=== PATIENT | female | born 1950 ===

== ENCOUNTER 2017-09-23 00:42 | Day surgery (SDC) | payer OTHER ==
[~2017-09-23 00:42] MED LIST: ACYC800 PO; AMLO10 PO; ASPERCREME1 EACH TP; ATEN25 PO; ATOR10 PO; Amoxicillin500 MG PO; Antivert25 MG PO; Bactrim Ds Tab1 EACH PO; CALACE667G PO; CEPH500 PO; CIPR500 PO; CRESEMBA186 MG PO; Cleocin HCl300 MG PO; Colace100 MG PO; Cortisporin Ear10 M1 RIGHTEAR; ESTRADIOL/PROG/TEST PO; Estradiol1 MG PO; GABA300 PO; ISON300 PO; LEVFLO500 PO; LOSA50 PO; METF500 PO; METO25 PO; METR500 PO; Norco 5-325 Ta1 EACH PO; PANT40 PO; PRED1SU BOTHEYES; PROC5 PO; PROM25 PO; TRAM50 PO; VITAMIN D32000 UNIT PO; Zofran4 MG PO
[2017-09-23 10:06] LABS: BASOPHILS PERCENT AUTO 0 % (0-2); EOSINOPHILS PERCENT AUTO 0 % (0-6); Hematocrit 32.3 % (33.0-51.0); Hemoglobin 10.2 g/dL (11.5-16.0); IMMATURE GRAN ABSOLUTE AUTO 0.02 K/mm3 (0.00-0.10); IMMATURE GRAN PERCENT AUTO 1 % (0-1); LYMPHOCYTES PERCENT AUTO 50 % (21-46); MONOCYTES ABSOLUTE AUTO 0.49 K/mm3 (0.16-1.47); MONOCYTES PERCENT AUTO 22 % (4-13); Mean Corpuscular HGB 27.6 pg (26.0-34.0); Mean Corpuscular HGB Conc 31.6 g/dL (31.5-36.5); Mean Corpuscular Volume 87 fL (80-100); Mean Platelet Volume 8.8 fL (9.1-12.4); NEUTROPHILS PERCENT AUTO 27 % (41-73); Platelet Count 242 K/mm3 (150-400); RDW Coefficient Variation 18.4 % (11.7-14.2); RDW Standard Deviation 58.6 fL (35.1-46.3); White Blood Cell Count 2.21 K/mm3 (4.00-11.30)
[2017-09-23 10:31] LABS: Alanine Aminotransfer (ALT/SGP 19 U/L (12-78); Albumin, Blood 3.9 g/dL (3.4-5.0); Albumin/Globulin Ratio 0.9 (0.8-1.8); Alk Phos 60 U/L (50-136); Anion Gap 8 mmol/L (6-16); Aspartate Aminotrans (AST/SGOT 35 U/L (12-37); Bilirubin, Total 0.2 mg/dL (0.1-1.0); Blood Urea Nitrogen 25 mg/dL (8-24); Bun/Creatinine Ratio 27.7 (12.0-20.0); CO2, Blood 24 mmol/L (21-32); Calcium, Blood 9.3 mg/dL (8.5-10.1); Chloride, Blood 104 mmol/L (98-108); Globulin, Blood 4.4 g/dL (2.2-4.0); Glomerular Filtration Rate >60 (60-); Glucose, Blood 97 mg/dL (70-99); Magnesium, Blood 1.8 mg/dL (1.6-2.4); Phosphorus, Blood 4.5 mg/dL (2.5-4.9); Potassium, Blood 4.7 mmol/L (3.5-5.5); Sodium, Blood 136 mmol/L (136-145); Total Protein, Blood 8.3 g/dL (6.4-8.2)
[2018-08-20] MEDS ORDERED: TRAZ50 PO (01:13)
[2018-08-20] MEDS ORDERED: FOLGARD TABLET1 EACH PO (01:14)
[2018-08-20] MEDS ORDERED: SACC250C PO (01:15)
[2018-08-20] MEDS ORDERED: Bactrim Ds Tab1 EACH PO (01:15)
[2018-08-20] MEDS ORDERED: ACYCLOVIR SOD PO (01:16)
[2018-08-20] MEDS ORDERED: VORI200 PO (01:17)
[2018-08-20] MEDS ORDERED: ONDA4ODT (01:18)
[2018-08-20] MEDS ORDERED: GABA100 PO (01:18)
[2018-08-20] MEDS ORDERED: ACET325 PO (01:19)
[2018-08-20] MEDS ORDERED: ENOX40I SC (01:20)
[2018-08-20] MEDS ORDERED: CITA10S PO (01:25)
[2018-08-20] MEDS ORDERED: LOSA25 PO (01:25)
[2018-08-20] MEDS ORDERED: MELA3 PO (01:26)
[2018-08-20] MEDS ORDERED: METF500C PO (01:26)
[2018-08-20] MEDS ORDERED: Omeprazole20 M1 PO (01:27)
[2018-08-20] MEDS ORDERED: POTCHL10ER PO (01:28)
[2018-08-20] MEDS ORDERED: PRED10 PO (01:29)
[2018-08-22] MEDS ORDERED: Zovirax200 MG PO (16:45)
[2018-08-22] MEDS ORDERED: CEFP200 PO (16:56)
== END 2017-09-23 09:50 | disposition home or self-care (01) ==
LOC: ATC 00:42
PROVIDERS: Internal Medicine Hematology & Oncology
DX: C92.40 Acute promyelocytic leukemia, not having achieved remission (principal)
CPT/HCPCS: 36592; 80053; 83735; 84100; 85025

== ENCOUNTER 2017-09-27 00:28 | Day surgery (SDC) | payer OTHER ==
[2017-09-27 09:39] LABS: BASOPHILS PERCENT AUTO 0 % (0-2); EOSINOPHILS PERCENT AUTO 0 % (0-6); Hematocrit 32.3 % (33.0-51.0); Hemoglobin 10.5 g/dL (11.5-16.0); IMMATURE GRAN ABSOLUTE AUTO 0.02 K/mm3 (0.00-0.10); IMMATURE GRAN PERCENT AUTO 1 % (0-1); LYMPHOCYTES ABSOLUTE AUTO 0.84 K/mm3 (0.84-5.20); LYMPHOCYTES PERCENT AUTO 46 % (21-46); MONOCYTES ABSOLUTE AUTO 0.29 K/mm3 (0.16-1.47); MONOCYTES PERCENT AUTO 16 % (4-13); Mean Corpuscular HGB 28.1 pg (26.0-34.0); Mean Corpuscular HGB Conc 32.5 g/dL (31.5-36.5); Mean Corpuscular Volume 86 fL (80-100); NEUTROPHILS ABSOLUTE AUTO 0.66 K/mm3 (1.96-9.15); NEUTROPHILS PERCENT AUTO 37 % (41-73); Platelet Count 190 K/mm3 (150-400); RDW Coefficient Variation 18.1 % (11.7-14.2); RDW Standard Deviation 57.7 fL (35.1-46.3); Red Blood Cell Count 3.74 M/mm3 (3.80-5.20); White Blood Cell Count 1.81 K/mm3 (4.00-11.30)
[2017-09-27 09:55] LABS: Alanine Aminotransfer (ALT/SGP 18 U/L (12-78); Albumin, Blood 3.8 g/dL (3.4-5.0); Albumin/Globulin Ratio 0.8 (0.8-1.8); Alk Phos 55 U/L (50-136); Anion Gap 10 mmol/L (6-16); Aspartate Aminotrans (AST/SGOT 33 U/L (12-37); Bilirubin, Total 0.3 mg/dL (0.1-1.0); Blood Urea Nitrogen 13 mg/dL (8-24); Bun/Creatinine Ratio 14.9 (12.0-20.0); CO2, Blood 23 mmol/L (21-32); Chloride, Blood 101 mmol/L (98-108); Creatinine, Blood 0.87 mg/dL (0.40-1.00); Globulin, Blood 4.5 g/dL (2.2-4.0); Glomerular Filtration Rate >60 (60-); Glucose, Blood 155 mg/dL (70-99); Magnesium, Blood 1.8 mg/dL (1.6-2.4); Potassium, Blood 4.3 mmol/L (3.5-5.5); Sodium, Blood 134 mmol/L (136-145); Total Protein, Blood 8.3 g/dL (6.4-8.2)
[2018-08-20] MEDS ORDERED: TRAZ50 PO (01:13)
[2018-08-20] MEDS ORDERED: FOLGARD TABLET1 EACH PO (01:14)
[2018-08-20] MEDS ORDERED: SACC250C PO (01:15)
[2018-08-20] MEDS ORDERED: Bactrim Ds Tab1 EACH PO (01:15)
[2018-08-20] MEDS ORDERED: ACYCLOVIR SOD PO (01:16)
[2018-08-20] MEDS ORDERED: VORI200 PO (01:17)
[2018-08-20] MEDS ORDERED: GABA100 PO (01:18)
[2018-08-20] MEDS ORDERED: ONDA4ODT (01:18)
[2018-08-20] MEDS ORDERED: ACET325 PO (01:19)
[2018-08-20] MEDS ORDERED: ENOX40I SC (01:20)
[2018-08-20] MEDS ORDERED: LOSA25 PO (01:25)
[2018-08-20] MEDS ORDERED: CITA10S PO (01:25)
[2018-08-20] MEDS ORDERED: MELA3 PO (01:26)
[2018-08-20] MEDS ORDERED: METF500C PO (01:26)
[2018-08-20] MEDS ORDERED: Omeprazole20 M1 PO (01:27)
[2018-08-20] MEDS ORDERED: POTCHL10ER PO (01:28)
[2018-08-20] MEDS ORDERED: PRED10 PO (01:29)
[2018-08-22] MEDS ORDERED: Zovirax200 MG PO (16:45)
[2018-08-22] MEDS ORDERED: CEFP200 PO (16:56)
== END 2017-09-27 09:23 | disposition home or self-care (01) ==
LOC: ATC 00:28
PROVIDERS: Internal Medicine Hematology & Oncology
DX: C92.40 Acute promyelocytic leukemia, not having achieved remission (principal)
CPT/HCPCS: 36592; 80053; 83735; 84100; 85025

== ENCOUNTER 2017-10-01 00:27 | Day surgery (SDC) | payer OTHER ==
[2017-10-01 14:06] LABS: BASOPHILS PERCENT AUTO 0 % (0-2); EOSINOPHILS ABSOLUTE AUTO 0.01 K/mm3 (0.00-0.68); EOSINOPHILS PERCENT AUTO 0 % (0-6); Hemoglobin 10.1 g/dL (11.5-16.0); IMMATURE GRAN ABSOLUTE AUTO 0.06 K/mm3 (0.00-0.10); IMMATURE GRAN PERCENT AUTO 2 % (0-1); LYMPHOCYTES ABSOLUTE AUTO 1.04 K/mm3 (0.84-5.20); LYMPHOCYTES PERCENT AUTO 37 % (21-46); MONOCYTES ABSOLUTE AUTO 0.41 K/mm3 (0.16-1.47); MONOCYTES PERCENT AUTO 15 % (4-13); Mean Corpuscular HGB 27.9 pg (26.0-34.0); Mean Corpuscular HGB Conc 31.6 g/dL (31.5-36.5); Mean Corpuscular Volume 88 fL (80-100); NEUTROPHILS ABSOLUTE AUTO 1.27 K/mm3 (1.96-9.15); NEUTROPHILS PERCENT AUTO 45 % (41-73); Platelet Count 211 K/mm3 (150-400); RDW Coefficient Variation 18.5 % (11.7-14.2); RDW Standard Deviation 59.6 fL (35.1-46.3); Red Blood Cell Count 3.62 M/mm3 (3.80-5.20); White Blood Cell Count 2.79 K/mm3 (4.00-11.30)
[2017-10-01 14:15] LABS: Alanine Aminotransfer (ALT/SGP 20 U/L (12-78); Albumin, Blood 3.9 g/dL (3.4-5.0); Albumin/Globulin Ratio 0.9 (0.8-1.8); Alk Phos 62 U/L (50-136); Anion Gap 9 mmol/L (6-16); Aspartate Aminotrans (AST/SGOT 32 U/L (12-37); Bilirubin, Total 0.2 mg/dL (0.1-1.0); Blood Urea Nitrogen 29 mg/dL (8-24); Bun/Creatinine Ratio 32.4 (12.0-20.0); CO2, Blood 25 mmol/L (21-32); Calcium, Blood 8.8 mg/dL (8.5-10.1); Chloride, Blood 101 mmol/L (98-108); Globulin, Blood 4.2 g/dL (2.2-4.0); Glomerular Filtration Rate >60 (60-); Glucose, Blood 130 mg/dL (70-99); Magnesium, Blood 2.1 mg/dL (1.6-2.4); Phosphorus, Blood 3.6 mg/dL (2.5-4.9); Potassium, Blood 4.7 mmol/L (3.5-5.5); Sodium, Blood 135 mmol/L (136-145); Total Protein, Blood 8.1 g/dL (6.4-8.2)
[2018-08-20] MEDS ORDERED: TRAZ50 PO (01:13)
[2018-08-20] MEDS ORDERED: FOLGARD TABLET1 EACH PO (01:14)
[2018-08-20] MEDS ORDERED: Bactrim Ds Tab1 EACH PO (01:15)
[2018-08-20] MEDS ORDERED: SACC250C PO (01:15)
[2018-08-20] MEDS ORDERED: ACYCLOVIR SOD PO (01:16)
[2018-08-20] MEDS ORDERED: VORI200 PO (01:17)
[2018-08-20] MEDS ORDERED: ONDA4ODT (01:18)
[2018-08-20] MEDS ORDERED: GABA100 PO (01:18)
[2018-08-20] MEDS ORDERED: ACET325 PO (01:19)
[2018-08-20] MEDS ORDERED: ENOX40I SC (01:20)
[2018-08-20] MEDS ORDERED: CITA10S PO (01:25)
[2018-08-20] MEDS ORDERED: LOSA25 PO (01:25)
[2018-08-20] MEDS ORDERED: METF500C PO (01:26)
[2018-08-20] MEDS ORDERED: MELA3 PO (01:26)
[2018-08-20] MEDS ORDERED: Omeprazole20 M1 PO (01:27)
[2018-08-20] MEDS ORDERED: POTCHL10ER PO (01:28)
[2018-08-20] MEDS ORDERED: PRED10 PO (01:29)
[2018-08-22] MEDS ORDERED: Zovirax200 MG PO (16:45)
[2018-08-22] MEDS ORDERED: CEFP200 PO (16:56)
== END 2017-10-01 13:47 | disposition home or self-care (01) ==
LOC: ATC 00:27
PROVIDERS: Internal Medicine Hematology & Oncology
DX: C92.40 Acute promyelocytic leukemia, not having achieved remission (principal)
CPT/HCPCS: 36592; 80053; 83735; 84100; 85025

== ENCOUNTER 2017-10-04 00:19 | Day surgery (SDC) | payer OTHER ==
[2017-10-04 09:00] LABS: BASOPHILS PERCENT AUTO 0 % (0-2); EOSINOPHILS PERCENT AUTO 0 % (0-6); Hematocrit 33.4 % (33.0-51.0); Hemoglobin 10.6 g/dL (11.5-16.0); IMMATURE GRAN ABSOLUTE AUTO 0.03 K/mm3 (0.00-0.10); IMMATURE GRAN PERCENT AUTO 1 % (0-1); LYMPHOCYTES ABSOLUTE AUTO 1.41 K/mm3 (0.84-5.20); LYMPHOCYTES PERCENT AUTO 48 % (21-46); MONOCYTES ABSOLUTE AUTO 0.37 K/mm3 (0.16-1.47); MONOCYTES PERCENT AUTO 13 % (4-13); Mean Corpuscular HGB Conc 31.7 g/dL (31.5-36.5); Mean Corpuscular Volume 88 fL (80-100); Mean Platelet Volume 8.9 fL (9.1-12.4); NEUTROPHILS ABSOLUTE AUTO 1.13 K/mm3 (1.96-9.15); NEUTROPHILS PERCENT AUTO 38 % (41-73); Platelet Count 202 K/mm3 (150-400); RDW Coefficient Variation 18.4 % (11.7-14.2); RDW Standard Deviation 59.7 fL (35.1-46.3); Red Blood Cell Count 3.78 M/mm3 (3.80-5.20); White Blood Cell Count 2.94 K/mm3 (4.00-11.30)
[2017-10-04 09:14] LABS: Alanine Aminotransfer (ALT/SGP 26 U/L (12-78); Albumin, Blood 3.8 g/dL (3.4-5.0); Albumin/Globulin Ratio 0.9 (0.8-1.8); Alk Phos 67 U/L (50-136); Anion Gap 12 mmol/L (6-16); Aspartate Aminotrans (AST/SGOT 39 U/L (12-37); Bilirubin, Total 0.2 mg/dL (0.1-1.0); Blood Urea Nitrogen 34 mg/dL (8-24); Bun/Creatinine Ratio 35.1 (12.0-20.0); CO2, Blood 23 mmol/L (21-32); Chloride, Blood 101 mmol/L (98-108); Creatinine, Blood 0.97 mg/dL (0.40-1.00); Globulin, Blood 4.4 g/dL (2.2-4.0); Glomerular Filtration Rate >60 (60-); Glucose, Blood 173 mg/dL (70-99); Magnesium, Blood 1.9 mg/dL (1.6-2.4); Phosphorus, Blood 3.5 mg/dL (2.5-4.9); Potassium, Blood 4.2 mmol/L (3.5-5.5); Sodium, Blood 136 mmol/L (136-145); Total Protein, Blood 8.2 g/dL (6.4-8.2)
[2018-08-20] MEDS ORDERED: TRAZ50 PO (01:13)
[2018-08-20] MEDS ORDERED: FOLGARD TABLET1 EACH PO (01:14)
[2018-08-20] MEDS ORDERED: Bactrim Ds Tab1 EACH PO (01:15)
[2018-08-20] MEDS ORDERED: SACC250C PO (01:15)
[2018-08-20] MEDS ORDERED: ACYCLOVIR SOD PO (01:16)
[2018-08-20] MEDS ORDERED: VORI200 PO (01:17)
[2018-08-20] MEDS ORDERED: GABA100 PO (01:18)
[2018-08-20] MEDS ORDERED: ONDA4ODT (01:18)
[2018-08-20] MEDS ORDERED: ACET325 PO (01:19)
[2018-08-20] MEDS ORDERED: ENOX40I SC (01:20)
[2018-08-20] MEDS ORDERED: LOSA25 PO (01:25)
[2018-08-20] MEDS ORDERED: CITA10S PO (01:25)
[2018-08-20] MEDS ORDERED: MELA3 PO (01:26)
[2018-08-20] MEDS ORDERED: METF500C PO (01:26)
[2018-08-20] MEDS ORDERED: Omeprazole20 M1 PO (01:27)
[2018-08-20] MEDS ORDERED: POTCHL10ER PO (01:28)
[2018-08-20] MEDS ORDERED: PRED10 PO (01:29)
[2018-08-22] MEDS ORDERED: Zovirax200 MG PO (16:45)
[2018-08-22] MEDS ORDERED: CEFP200 PO (16:56)
== END 2017-10-04 08:13 | disposition home or self-care (01) ==
LOC: ATC 00:19
PROVIDERS: Internal Medicine Hematology & Oncology
DX: C92.00 Acute myeloblastic leukemia, not having achieved remission (principal); C92.40 Acute promyelocytic leukemia, not having achieved remission; E78.5 Hyperlipidemia, unspecified; C92.02 Acute myeloblastic leukemia, in relapse; Z79.899 Other long term (current) drug therapy; Z45.2 Encounter for adjustment and management of vascular access device
CPT/HCPCS: 36592; 80053; 83735; 84100; 85025

== ENCOUNTER 2017-10-05 13:41 | Day surgery (SDC) | payer OTHER ==
[2018-08-20] MEDS ORDERED: TRAZ50 PO (01:13)
[2018-08-20] MEDS ORDERED: FOLGARD TABLET1 EACH PO (01:14)
[2018-08-20] MEDS ORDERED: Bactrim Ds Tab1 EACH PO (01:15)
[2018-08-20] MEDS ORDERED: SACC250C PO (01:15)
[2018-08-20] MEDS ORDERED: ACYCLOVIR SOD PO (01:16)
[2018-08-20] MEDS ORDERED: VORI200 PO (01:17)
[2018-08-20] MEDS ORDERED: ONDA4ODT (01:18)
[2018-08-20] MEDS ORDERED: GABA100 PO (01:18)
[2018-08-20] MEDS ORDERED: ACET325 PO (01:19)
[2018-08-20] MEDS ORDERED: ENOX40I SC (01:20)
[2018-08-20] MEDS ORDERED: CITA10S PO (01:25)
[2018-08-20] MEDS ORDERED: LOSA25 PO (01:25)
[2018-08-20] MEDS ORDERED: MELA3 PO (01:26)
[2018-08-20] MEDS ORDERED: METF500C PO (01:26)
[2018-08-20] MEDS ORDERED: Omeprazole20 M1 PO (01:27)
[2018-08-20] MEDS ORDERED: POTCHL10ER PO (01:28)
[2018-08-20] MEDS ORDERED: PRED10 PO (01:29)
[2018-08-22] MEDS ORDERED: Zovirax200 MG PO (16:45)
[2018-08-22] MEDS ORDERED: CEFP200 PO (16:56)
== END 2017-10-05 14:54 | disposition home or self-care (01) ==
LOC: ATC 13:41
DX: C92.40 Acute promyelocytic leukemia, not having achieved remission (principal); Z79.899 Other long term (current) drug therapy; D70.9 Neutropenia, unspecified
CPT/HCPCS: 36593; J2997

== ENCOUNTER 2017-10-07 00:42 | Day surgery (SDC) | payer OTHER ==
[2017-10-07 08:32] LABS: BASOPHILS PERCENT AUTO 0 % (0-2); EOSINOPHILS PERCENT AUTO 0 % (0-6); Hematocrit 32.3 % (33.0-51.0); Hemoglobin 10.4 g/dL (11.5-16.0); IMMATURE GRAN ABSOLUTE AUTO 0.05 K/mm3 (0.00-0.10); IMMATURE GRAN PERCENT AUTO 1 % (0-1); LYMPHOCYTES ABSOLUTE AUTO 1.07 K/mm3 (0.84-5.20); LYMPHOCYTES PERCENT AUTO 21 % (21-46); MONOCYTES ABSOLUTE AUTO 0.27 K/mm3 (0.16-1.47); MONOCYTES PERCENT AUTO 5 % (4-13); Mean Corpuscular HGB 27.7 pg (26.0-34.0); Mean Corpuscular HGB Conc 32.2 g/dL (31.5-36.5); Mean Corpuscular Volume 86 fL (80-100); Mean Platelet Volume 9.4 fL (9.1-12.4); NEUTROPHILS ABSOLUTE AUTO 3.76 K/mm3 (1.96-9.15); NEUTROPHILS PERCENT AUTO 73 % (41-73); NRBC ABSOLUTE 0.02 K/mm3 (0.00-0.02); NRBC Auto 0.4 /100 WBC (0.0-0.2); Platelet Count 192 K/mm3 (150-400); RDW Coefficient Variation 18.1 % (11.7-14.2); RDW Standard Deviation 56.9 fL (35.1-46.3); Red Blood Cell Count 3.76 M/mm3 (3.80-5.20); White Blood Cell Count 5.15 K/mm3 (4.00-11.30)
[2017-10-07 08:52] LABS: Magnesium, Blood 1.8 mg/dL (1.6-2.4)
[2017-10-07 08:57] LABS: Alanine Aminotransfer (ALT/SGP 22 U/L (12-78); Albumin, Blood 3.8 g/dL (3.4-5.0); Albumin/Globulin Ratio 0.9 (0.8-1.8); Alk Phos 60 U/L (50-136); Anion Gap 13 mmol/L (6-16); Aspartate Aminotrans (AST/SGOT 30 U/L (12-37); Bilirubin, Total 0.2 mg/dL (0.1-1.0); Blood Urea Nitrogen 33 mg/dL (8-24); Bun/Creatinine Ratio 35.8 (12.0-20.0); CO2, Blood 22 mmol/L (21-32); Calcium, Blood 8.9 mg/dL (8.5-10.1); Chloride, Blood 98 mmol/L (98-108); Creatinine, Blood 0.92 mg/dL (0.40-1.00); Globulin, Blood 4.2 g/dL (2.2-4.0); Glomerular Filtration Rate >60 (60-); Glucose, Blood 238 mg/dL (70-99); Phosphorus, Blood 2.1 mg/dL (2.5-4.9); Potassium, Blood 3.9 mmol/L (3.5-5.5); Sodium, Blood 133 mmol/L (136-145)
[2018-08-20] MEDS ORDERED: TRAZ50 PO (01:13)
[2018-08-20] MEDS ORDERED: FOLGARD TABLET1 EACH PO (01:14)
[2018-08-20] MEDS ORDERED: Bactrim Ds Tab1 EACH PO (01:15)
[2018-08-20] MEDS ORDERED: SACC250C PO (01:15)
[2018-08-20] MEDS ORDERED: ACYCLOVIR SOD PO (01:16)
[2018-08-20] MEDS ORDERED: VORI200 PO (01:17)
[2018-08-20] MEDS ORDERED: ONDA4ODT (01:18)
[2018-08-20] MEDS ORDERED: GABA100 PO (01:18)
[2018-08-20] MEDS ORDERED: ACET325 PO (01:19)
[2018-08-20] MEDS ORDERED: ENOX40I SC (01:20)
[2018-08-20] MEDS ORDERED: CITA10S PO (01:25)
[2018-08-20] MEDS ORDERED: LOSA25 PO (01:25)
[2018-08-20] MEDS ORDERED: METF500C PO (01:26)
[2018-08-20] MEDS ORDERED: MELA3 PO (01:26)
[2018-08-20] MEDS ORDERED: Omeprazole20 M1 PO (01:27)
[2018-08-20] MEDS ORDERED: POTCHL10ER PO (01:28)
[2018-08-20] MEDS ORDERED: PRED10 PO (01:29)
[2018-08-22] MEDS ORDERED: Zovirax200 MG PO (16:45)
[2018-08-22] MEDS ORDERED: CEFP200 PO (16:56)
== END 2017-10-07 08:20 | disposition home or self-care (01) ==
LOC: ATC 00:42
PROVIDERS: Internal Medicine Hematology & Oncology
DX: Z79.899 Other long term (current) drug therapy (principal)
CPT/HCPCS: 80053; 83735; 84100; 85025; 99211

== ENCOUNTER 2017-10-11 09:10 | Day surgery (SDC) | payer OTHER ==
[2017-10-11 10:02] LABS: Hematocrit 33.7 % (33.0-51.0); Hemoglobin 10.7 g/dL (11.5-16.0); Mean Corpuscular HGB 27.6 pg (26.0-34.0); Mean Corpuscular HGB Conc 31.8 g/dL (31.5-36.5); Mean Corpuscular Volume 87 fL (80-100); Mean Platelet Volume 8.8 fL (9.1-12.4); NRBC ABSOLUTE 0.07 K/mm3 (0.00-0.02); NRBC Auto 1.9 /100 WBC (0.0-0.2); Platelet Count 188 K/mm3 (150-400); RDW Coefficient Variation 18.1 % (11.7-14.2); RDW Standard Deviation 57.1 fL (35.1-46.3); Red Blood Cell Count 3.87 M/mm3 (3.80-5.20); White Blood Cell Count 3.65 K/mm3 (4.00-11.30)
[2017-10-11 10:21] LABS: Alanine Aminotransfer (ALT/SGP 25 U/L (12-78); Albumin, Blood 3.4 g/dL (3.4-5.0); Albumin/Globulin Ratio 0.8 (0.8-1.8); Alk Phos 57 U/L (50-136); Anion Gap 8 mmol/L (6-16); Aspartate Aminotrans (AST/SGOT 26 U/L (12-37); Bilirubin, Total 0.2 mg/dL (0.1-1.0); Blood Urea Nitrogen 23 mg/dL (8-24); Bun/Creatinine Ratio 25.4 (12.0-20.0); CO2, Blood 25 mmol/L (21-32); Calcium, Blood 8.5 mg/dL (8.5-10.1); Chloride, Blood 99 mmol/L (98-108); Creatinine, Blood 0.91 mg/dL (0.40-1.00); Globulin, Blood 4.1 g/dL (2.2-4.0); Glomerular Filtration Rate >60 (60-); Glucose, Blood 264 mg/dL (70-99); Magnesium, Blood 1.8 mg/dL (1.6-2.4); Phosphorus, Blood 2.5 mg/dL (2.5-4.9); Sodium, Blood 132 mmol/L (136-145); Total Protein, Blood 7.5 g/dL (6.4-8.2)
[2017-10-11 10:52] LABS: BAND PERCENT MAN 1 % (0-8); BASOPHILS PERCENT MAN 0 % (0-2); EOSINOPHILS PERCENT MAN 0 % (0-6); LYMPHOCYTES % ATYPICAL MANUAL 2 % (0-0); LYMPHOCYTES ABSOLUTE MAN 0.87 K/mm3 (0.84-5.20); LYMPHOCYTES PERCENT MAN 22 % (21-46); METAMYELOCYTE ABSOLUTE MAN 0.07 K/mm3 (0.00-0.00); METAMYELOCYTE PERCENT MAN 2 % (0-0); MONOCYTES ABSOLUTE MAN 0.18 K/mm3 (0.16-1.47); MONOCYTES PERCENT MAN 5 % (4-13); MYELOCYTE ABSOLUTE MAN 0.03 K/mm3 (0.00-0.00); MYELOCYTE PERCENT MAN 1 % (0-0); NEUTROPHILS ABSOLUTE MAN 2.48 K/mm3 (1.96-9.15); SEG NEUTROPHILS PERCENT MAN 67 % (41-73); TOTAL CELLS COUNTED 100
[2018-08-20] MEDS ORDERED: TRAZ50 PO (01:13)
[2018-08-20] MEDS ORDERED: FOLGARD TABLET1 EACH PO (01:14)
[2018-08-20] MEDS ORDERED: Bactrim Ds Tab1 EACH PO (01:15)
[2018-08-20] MEDS ORDERED: SACC250C PO (01:15)
[2018-08-20] MEDS ORDERED: ACYCLOVIR SOD PO (01:16)
[2018-08-20] MEDS ORDERED: VORI200 PO (01:17)
[2018-08-20] MEDS ORDERED: GABA100 PO (01:18)
[2018-08-20] MEDS ORDERED: ONDA4ODT (01:18)
[2018-08-20] MEDS ORDERED: ACET325 PO (01:19)
[2018-08-20] MEDS ORDERED: ENOX40I SC (01:20)
[2018-08-20] MEDS ORDERED: LOSA25 PO (01:25)
[2018-08-20] MEDS ORDERED: CITA10S PO (01:25)
[2018-08-20] MEDS ORDERED: MELA3 PO (01:26)
[2018-08-20] MEDS ORDERED: METF500C PO (01:26)
[2018-08-20] MEDS ORDERED: Omeprazole20 M1 PO (01:27)
[2018-08-20] MEDS ORDERED: POTCHL10ER PO (01:28)
[2018-08-20] MEDS ORDERED: PRED10 PO (01:29)
[2018-08-22] MEDS ORDERED: Zovirax200 MG PO (16:45)
[2018-08-22] MEDS ORDERED: CEFP200 PO (16:56)
== END 2017-10-11 09:32 | disposition home or self-care (01) ==
LOC: ATC 09:10
PROVIDERS: Internal Medicine Hematology & Oncology
DX: Z45.2 Encounter for adjustment and management of vascular access device (principal); C92.40 Acute promyelocytic leukemia, not having achieved remission; E78.5 Hyperlipidemia, unspecified; C92.00 Acute myeloblastic leukemia, not having achieved remission; C92.02 Acute myeloblastic leukemia, in relapse; Z79.899 Other long term (current) drug therapy
CPT/HCPCS: 36592; 80053; 83735; 84100; 85025

== ENCOUNTER 2017-10-14 00:31 | Day surgery (SDC) | payer OTHER ==
[2017-10-14 10:14] LABS: BASOPHILS PERCENT AUTO 0 % (0-2); EOSINOPHILS PERCENT AUTO 0 % (0-6); IMMATURE GRAN ABSOLUTE AUTO 0.07 K/mm3 (0.00-0.10); IMMATURE GRAN PERCENT AUTO 2 % (0-1); LYMPHOCYTES ABSOLUTE AUTO 0.83 K/mm3 (0.84-5.20); LYMPHOCYTES PERCENT AUTO 21 % (21-46); MONOCYTES ABSOLUTE AUTO 0.33 K/mm3 (0.16-1.47); MONOCYTES PERCENT AUTO 8 % (4-13); Mean Corpuscular HGB 27.6 pg (26.0-34.0); Mean Corpuscular HGB Conc 31.3 g/dL (31.5-36.5); Mean Corpuscular Volume 88 fL (80-100); NEUTROPHILS ABSOLUTE AUTO 2.79 K/mm3 (1.96-9.15); NEUTROPHILS PERCENT AUTO 70 % (41-73); NRBC ABSOLUTE 0.05 K/mm3 (0.00-0.02); NRBC Auto 1.2 /100 WBC (0.0-0.2); Platelet Count 143 K/mm3 (150-400); RDW Coefficient Variation 18.2 % (11.7-14.2); RDW Standard Deviation 57.8 fL (35.1-46.3); Red Blood Cell Count 3.62 M/mm3 (3.80-5.20); White Blood Cell Count 4.02 K/mm3 (4.00-11.30)
[2017-10-14 10:31] LABS: Alanine Aminotransfer (ALT/SGP 26 U/L (12-78); Albumin, Blood 3.5 g/dL (3.4-5.0); Albumin/Globulin Ratio 0.9 (0.8-1.8); Alk Phos 57 U/L (50-136); Anion Gap 9 mmol/L (6-16); Aspartate Aminotrans (AST/SGOT 28 U/L (12-37); Bilirubin, Total 0.3 mg/dL (0.1-1.0); Blood Urea Nitrogen 21 mg/dL (8-24); Bun/Creatinine Ratio 25.9 (12.0-20.0); CO2, Blood 24 mmol/L (21-32); Calcium, Blood 8.8 mg/dL (8.5-10.1); Chloride, Blood 102 mmol/L (98-108); Creatinine, Blood 0.81 mg/dL (0.40-1.00); Globulin, Blood 4.1 g/dL (2.2-4.0); Glomerular Filtration Rate >60 (60-); Glucose, Blood 204 mg/dL (70-99); Magnesium, Blood 1.7 mg/dL (1.6-2.4); Phosphorus, Blood 3.6 mg/dL (2.5-4.9); Potassium, Blood 4.2 mmol/L (3.5-5.5); Sodium, Blood 135 mmol/L (136-145); Total Protein, Blood 7.6 g/dL (6.4-8.2)
[2018-08-20] MEDS ORDERED: TRAZ50 PO (01:13)
[2018-08-20] MEDS ORDERED: FOLGARD TABLET1 EACH PO (01:14)
[2018-08-20] MEDS ORDERED: SACC250C PO (01:15)
[2018-08-20] MEDS ORDERED: Bactrim Ds Tab1 EACH PO (01:15)
[2018-08-20] MEDS ORDERED: ACYCLOVIR SOD PO (01:16)
[2018-08-20] MEDS ORDERED: VORI200 PO (01:17)
[2018-08-20] MEDS ORDERED: GABA100 PO (01:18)
[2018-08-20] MEDS ORDERED: ONDA4ODT (01:18)
[2018-08-20] MEDS ORDERED: ACET325 PO (01:19)
[2018-08-20] MEDS ORDERED: ENOX40I SC (01:20)
[2018-08-20] MEDS ORDERED: CITA10S PO (01:25)
[2018-08-20] MEDS ORDERED: LOSA25 PO (01:25)
[2018-08-20] MEDS ORDERED: METF500C PO (01:26)
[2018-08-20] MEDS ORDERED: MELA3 PO (01:26)
[2018-08-20] MEDS ORDERED: Omeprazole20 M1 PO (01:27)
[2018-08-20] MEDS ORDERED: POTCHL10ER PO (01:28)
[2018-08-20] MEDS ORDERED: PRED10 PO (01:29)
[2018-08-22] MEDS ORDERED: Zovirax200 MG PO (16:45)
[2018-08-22] MEDS ORDERED: CEFP200 PO (16:56)
== END 2017-10-14 09:53 | disposition home or self-care (01) ==
LOC: ATC 00:31
PROVIDERS: Internal Medicine Hematology & Oncology
DX: C92.00 Acute myeloblastic leukemia, not having achieved remission (principal); Z45.2 Encounter for adjustment and management of vascular access device
CPT/HCPCS: 36592; 80053; 83735; 84100; 85025

== ENCOUNTER 2017-10-18 09:18 | Day surgery (SDC) | payer OTHER ==
[2017-10-18 09:48] LABS: BASOPHILS PERCENT AUTO 0 % (0-2); EOSINOPHILS PERCENT AUTO 0 % (0-6); Hematocrit 32.8 % (33.0-51.0); Hemoglobin 10.4 g/dL (11.5-16.0); IMMATURE GRAN ABSOLUTE AUTO 0.02 K/mm3 (0.00-0.10); IMMATURE GRAN PERCENT AUTO 1 % (0-1); LYMPHOCYTES ABSOLUTE AUTO 0.89 K/mm3 (0.84-5.20); LYMPHOCYTES PERCENT AUTO 32 % (21-46); MONOCYTES ABSOLUTE AUTO 0.31 K/mm3 (0.16-1.47); MONOCYTES PERCENT AUTO 11 % (4-13); Mean Corpuscular HGB Conc 31.7 g/dL (31.5-36.5); Mean Corpuscular Volume 88 fL (80-100); Mean Platelet Volume 8.9 fL (9.1-12.4); NEUTROPHILS ABSOLUTE AUTO 1.53 K/mm3 (1.96-9.15); NEUTROPHILS PERCENT AUTO 56 % (41-73); NRBC ABSOLUTE 0.02 K/mm3 (0.00-0.02); NRBC Auto 0.7 /100 WBC (0.0-0.2); Platelet Count 109 K/mm3 (150-400); RDW Coefficient Variation 18.4 % (11.7-14.2); Red Blood Cell Count 3.72 M/mm3 (3.80-5.20); White Blood Cell Count 2.75 K/mm3 (4.00-11.30)
[2017-10-18 10:04] LABS: Alanine Aminotransfer (ALT/SGP 29 U/L (12-78); Albumin, Blood 3.6 g/dL (3.4-5.0); Albumin/Globulin Ratio 0.8 (0.8-1.8); Alk Phos 65 U/L (50-136); Anion Gap 8 mmol/L (6-16); Aspartate Aminotrans (AST/SGOT 34 U/L (12-37); Bilirubin, Total 0.3 mg/dL (0.1-1.0); Blood Urea Nitrogen 21 mg/dL (8-24); Bun/Creatinine Ratio 22.5 (12.0-20.0); CO2, Blood 25 mmol/L (21-32); Calcium, Blood 8.8 mg/dL (8.5-10.1); Chloride, Blood 102 mmol/L (98-108); Creatinine, Blood 0.93 mg/dL (0.40-1.00); Globulin, Blood 4.6 g/dL (2.2-4.0); Glomerular Filtration Rate >60 (60-); Glucose, Blood 169 mg/dL (70-99); Magnesium, Blood 1.8 mg/dL (1.6-2.4); Phosphorus, Blood 3.8 mg/dL (2.5-4.9); Potassium, Blood 4.3 mmol/L (3.5-5.5); Sodium, Blood 135 mmol/L (136-145); Total Protein, Blood 8.2 g/dL (6.4-8.2)
[2018-08-20] MEDS ORDERED: TRAZ50 PO (01:13)
[2018-08-20] MEDS ORDERED: FOLGARD TABLET1 EACH PO (01:14)
[2018-08-20] MEDS ORDERED: SACC250C PO (01:15)
[2018-08-20] MEDS ORDERED: Bactrim Ds Tab1 EACH PO (01:15)
[2018-08-20] MEDS ORDERED: ACYCLOVIR SOD PO (01:16)
[2018-08-20] MEDS ORDERED: VORI200 PO (01:17)
[2018-08-20] MEDS ORDERED: GABA100 PO (01:18)
[2018-08-20] MEDS ORDERED: ONDA4ODT (01:18)
[2018-08-20] MEDS ORDERED: ACET325 PO (01:19)
[2018-08-20] MEDS ORDERED: ENOX40I SC (01:20)
[2018-08-20] MEDS ORDERED: LOSA25 PO (01:25)
[2018-08-20] MEDS ORDERED: CITA10S PO (01:25)
[2018-08-20] MEDS ORDERED: MELA3 PO (01:26)
[2018-08-20] MEDS ORDERED: METF500C PO (01:26)
[2018-08-20] MEDS ORDERED: Omeprazole20 M1 PO (01:27)
[2018-08-20] MEDS ORDERED: POTCHL10ER PO (01:28)
[2018-08-20] MEDS ORDERED: PRED10 PO (01:29)
[2018-08-22] MEDS ORDERED: Zovirax200 MG PO (16:45)
[2018-08-22] MEDS ORDERED: CEFP200 PO (16:56)
== END 2017-10-18 09:34 | disposition home or self-care (01) ==
LOC: ATC 09:18
PROVIDERS: Internal Medicine Hematology & Oncology
DX: C92.40 Acute promyelocytic leukemia, not having achieved remission (principal)
CPT/HCPCS: 36592; 80053; 83735; 84100; 85025

== ENCOUNTER 2017-10-21 01:06 | Day surgery (SDC) | payer OTHER ==
[2017-10-21 09:55] LABS: BASOPHILS PERCENT AUTO 0 % (0-2); EOSINOPHILS PERCENT AUTO 0 % (0-6); Hematocrit 33.9 % (33.0-51.0); Hemoglobin 10.8 g/dL (11.5-16.0); IMMATURE GRAN ABSOLUTE AUTO 0.03 K/mm3 (0.00-0.10); IMMATURE GRAN PERCENT AUTO 1 % (0-1); LYMPHOCYTES ABSOLUTE AUTO 0.93 K/mm3 (0.84-5.20); LYMPHOCYTES PERCENT AUTO 32 % (21-46); MONOCYTES ABSOLUTE AUTO 0.26 K/mm3 (0.16-1.47); MONOCYTES PERCENT AUTO 9 % (4-13); Mean Corpuscular HGB 27.7 pg (26.0-34.0); Mean Corpuscular HGB Conc 31.9 g/dL (31.5-36.5); Mean Corpuscular Volume 87 fL (80-100); Mean Platelet Volume 9.6 fL (9.1-12.4); NEUTROPHILS ABSOLUTE AUTO 1.69 K/mm3 (1.96-9.15); NEUTROPHILS PERCENT AUTO 58 % (41-73); Platelet Count 90 K/mm3 (150-400); RDW Coefficient Variation 17.8 % (11.7-14.2); RDW Standard Deviation 55.7 fL (35.1-46.3); White Blood Cell Count 2.91 K/mm3 (4.00-11.30)
[2017-10-21 10:20] LABS: Alanine Aminotransfer (ALT/SGP 27 U/L (12-78); Albumin, Blood 3.8 g/dL (3.4-5.0); Albumin/Globulin Ratio 0.8 (0.8-1.8); Alk Phos 59 U/L (50-136); Anion Gap 8 mmol/L (6-16); Aspartate Aminotrans (AST/SGOT 32 U/L (12-37); Bilirubin, Total 0.2 mg/dL (0.1-1.0); Blood Urea Nitrogen 19 mg/dL (8-24); Bun/Creatinine Ratio 24.1 (12.0-20.0); CO2, Blood 27 mmol/L (21-32); Calcium, Blood 9.2 mg/dL (8.5-10.1); Chloride, Blood 97 mmol/L (98-108); Creatinine, Blood 0.79 mg/dL (0.40-1.00); Globulin, Blood 4.6 g/dL (2.2-4.0); Glomerular Filtration Rate >60 (60-); Glucose, Blood 124 mg/dL (70-99); Magnesium, Blood 1.8 mg/dL (1.6-2.4); Phosphorus, Blood 3.6 mg/dL (2.5-4.9); Potassium, Blood 4.7 mmol/L (3.5-5.5); Sodium, Blood 132 mmol/L (136-145); Total Protein, Blood 8.4 g/dL (6.4-8.2)
[2018-08-20] MEDS ORDERED: TRAZ50 PO (01:13)
[2018-08-20] MEDS ORDERED: FOLGARD TABLET1 EACH PO (01:14)
[2018-08-20] MEDS ORDERED: Bactrim Ds Tab1 EACH PO (01:15)
[2018-08-20] MEDS ORDERED: SACC250C PO (01:15)
[2018-08-20] MEDS ORDERED: ACYCLOVIR SOD PO (01:16)
[2018-08-20] MEDS ORDERED: VORI200 PO (01:17)
[2018-08-20] MEDS ORDERED: ONDA4ODT (01:18)
[2018-08-20] MEDS ORDERED: GABA100 PO (01:18)
[2018-08-20] MEDS ORDERED: ACET325 PO (01:19)
[2018-08-20] MEDS ORDERED: ENOX40I SC (01:20)
[2018-08-20] MEDS ORDERED: CITA10S PO (01:25)
[2018-08-20] MEDS ORDERED: LOSA25 PO (01:25)
[2018-08-20] MEDS ORDERED: MELA3 PO (01:26)
[2018-08-20] MEDS ORDERED: METF500C PO (01:26)
[2018-08-20] MEDS ORDERED: Omeprazole20 M1 PO (01:27)
[2018-08-20] MEDS ORDERED: POTCHL10ER PO (01:28)
[2018-08-20] MEDS ORDERED: PRED10 PO (01:29)
[2018-08-22] MEDS ORDERED: Zovirax200 MG PO (16:45)
[2018-08-22] MEDS ORDERED: CEFP200 PO (16:56)
== END 2017-10-21 09:35 | disposition home or self-care (01) ==
LOC: ATC 01:06
PROVIDERS: Internal Medicine Hematology & Oncology
DX: C92.40 Acute promyelocytic leukemia, not having achieved remission (principal); Z79.899 Other long term (current) drug therapy
CPT/HCPCS: 36592; 80053; 83735; 84100; 85025

== ENCOUNTER 2017-10-25 00:28 | Day surgery (SDC) | payer OTHER ==
[2017-10-25 09:46] LABS: BASOPHILS PERCENT AUTO 0 % (0-2); EOSINOPHILS PERCENT AUTO 0 % (0-6); Hematocrit 31.7 % (33.0-51.0); Hemoglobin 10.1 g/dL (11.5-16.0); IMMATURE GRAN ABSOLUTE AUTO 0.14 K/mm3 (0.00-0.10); IMMATURE GRAN PERCENT AUTO 5 % (0-1); LYMPHOCYTES ABSOLUTE AUTO 1.14 K/mm3 (0.84-5.20); LYMPHOCYTES PERCENT AUTO 43 % (21-46); MONOCYTES ABSOLUTE AUTO 0.14 K/mm3 (0.16-1.47); MONOCYTES PERCENT AUTO 5 % (4-13); Mean Corpuscular HGB 28.1 pg (26.0-34.0); Mean Corpuscular HGB Conc 31.9 g/dL (31.5-36.5); Mean Corpuscular Volume 88 fL (80-100); Mean Platelet Volume 9.6 fL (9.1-12.4); NEUTROPHILS ABSOLUTE AUTO 1.23 K/mm3 (1.96-9.15); NEUTROPHILS PERCENT AUTO 46 % (41-73); NRBC ABSOLUTE 0.03 K/mm3 (0.00-0.02); NRBC Auto 1.1 /100 WBC (0.0-0.2); Platelet Count 104 K/mm3 (150-400); RDW Coefficient Variation 17.9 % (11.7-14.2); RDW Standard Deviation 58.1 fL (35.1-46.3); Red Blood Cell Count 3.59 M/mm3 (3.80-5.20); White Blood Cell Count 2.65 K/mm3 (4.00-11.30)
[2017-10-25 10:08] LABS: BAND PERCENT MAN 2 % (0-8); BASOPHILS PERCENT MAN 0 % (0-2); EOSINOPHILS PERCENT MAN 0 % (0-6); LYMPHOCYTES ABSOLUTE MAN 0.98 K/mm3 (0.84-5.20); LYMPHOCYTES PERCENT MAN 37 % (21-46); METAMYELOCYTE ABSOLUTE MAN 0.05 K/mm3 (0.00-0.00); METAMYELOCYTE PERCENT MAN 2 % (0-0); MONOCYTES ABSOLUTE MAN 0.07 K/mm3 (0.16-1.47); MONOCYTES PERCENT MAN 3 % (4-13); NEUTROPHILS ABSOLUTE MAN 1.53 K/mm3 (1.96-9.15); SEG NEUTROPHILS PERCENT MAN 56 % (41-73); TOTAL CELLS COUNTED 100
[2017-10-25 10:21] LABS: Alanine Aminotransfer (ALT/SGP 29 U/L (12-78); Albumin, Blood 3.6 g/dL (3.4-5.0); Albumin/Globulin Ratio 0.8 (0.8-1.8); Alk Phos 66 U/L (50-136); Anion Gap 9 mmol/L (6-16); Aspartate Aminotrans (AST/SGOT 35 U/L (12-37); Bilirubin, Total 0.3 mg/dL (0.1-1.0); Blood Urea Nitrogen 22 mg/dL (8-24); Bun/Creatinine Ratio 23.9 (12.0-20.0); CO2, Blood 24 mmol/L (21-32); Calcium, Blood 8.6 mg/dL (8.5-10.1); Chloride, Blood 105 mmol/L (98-108); Creatinine, Blood 0.92 mg/dL (0.40-1.00); Globulin, Blood 4.5 g/dL (2.2-4.0); Glomerular Filtration Rate >60 (60-); Glucose, Blood 152 mg/dL (70-99); Potassium, Blood 4.3 mmol/L (3.5-5.5); Sodium, Blood 138 mmol/L (136-145); Total Protein, Blood 8.1 g/dL (6.4-8.2)
[2018-08-20] MEDS ORDERED: TRAZ50 PO (01:13)
[2018-08-20] MEDS ORDERED: FOLGARD TABLET1 EACH PO (01:14)
[2018-08-20] MEDS ORDERED: Bactrim Ds Tab1 EACH PO (01:15)
[2018-08-20] MEDS ORDERED: SACC250C PO (01:15)
[2018-08-20] MEDS ORDERED: ACYCLOVIR SOD PO (01:16)
[2018-08-20] MEDS ORDERED: VORI200 PO (01:17)
[2018-08-20] MEDS ORDERED: ONDA4ODT (01:18)
[2018-08-20] MEDS ORDERED: GABA100 PO (01:18)
[2018-08-20] MEDS ORDERED: ACET325 PO (01:19)
[2018-08-20] MEDS ORDERED: ENOX40I SC (01:20)
[2018-08-20] MEDS ORDERED: LOSA25 PO (01:25)
[2018-08-20] MEDS ORDERED: CITA10S PO (01:25)
[2018-08-20] MEDS ORDERED: MELA3 PO (01:26)
[2018-08-20] MEDS ORDERED: METF500C PO (01:26)
[2018-08-20] MEDS ORDERED: Omeprazole20 M1 PO (01:27)
[2018-08-20] MEDS ORDERED: POTCHL10ER PO (01:28)
[2018-08-20] MEDS ORDERED: PRED10 PO (01:29)
[2018-08-22] MEDS ORDERED: Zovirax200 MG PO (16:45)
[2018-08-22] MEDS ORDERED: CEFP200 PO (16:56)
== END 2017-10-25 09:35 | disposition home or self-care (01) ==
LOC: ATC 00:28
PROVIDERS: Internal Medicine Hematology & Oncology
DX: C92.40 Acute promyelocytic leukemia, not having achieved remission (principal); Z79.899 Other long term (current) drug therapy
CPT/HCPCS: 36592; 80053; 83735; 84100; 85025

== ENCOUNTER 2017-11-02 00:48 | Day surgery (SDC) | payer OTHER ==
[2017-11-02 12:16] LABS: BASOPHILS PERCENT AUTO 0 % (0-2); EOSINOPHILS ABSOLUTE AUTO 0.02 K/mm3 (0.00-0.68); EOSINOPHILS PERCENT AUTO 1 % (0-6); Hematocrit 33.6 % (33.0-51.0); Hemoglobin 10.6 g/dL (11.5-16.0); IMMATURE GRAN ABSOLUTE AUTO 0.04 K/mm3 (0.00-0.10); IMMATURE GRAN PERCENT AUTO 1 % (0-1); LYMPHOCYTES ABSOLUTE AUTO 1.04 K/mm3 (0.84-5.20); LYMPHOCYTES PERCENT AUTO 33 % (21-46); MONOCYTES ABSOLUTE AUTO 0.24 K/mm3 (0.16-1.47); MONOCYTES PERCENT AUTO 8 % (4-13); Mean Corpuscular HGB Conc 31.5 g/dL (31.5-36.5); Mean Corpuscular Volume 89 fL (80-100); Mean Platelet Volume 9.8 fL (9.1-12.4); NEUTROPHILS ABSOLUTE AUTO 1.78 K/mm3 (1.96-9.15); NEUTROPHILS PERCENT AUTO 57 % (41-73); Platelet Count 223 K/mm3 (150-400); RDW Coefficient Variation 17.8 % (11.7-14.2); RDW Standard Deviation 57.7 fL (35.1-46.3); Red Blood Cell Count 3.78 M/mm3 (3.80-5.20); White Blood Cell Count 3.12 K/mm3 (4.00-11.30)
[2017-11-02 12:32] LABS: Albumin, Blood 3.8 g/dL (3.4-5.0); Albumin/Globulin Ratio 0.8 (0.8-1.8); Alk Phos 54 U/L (50-136); Anion Gap 7 mmol/L (6-16); Aspartate Aminotrans (AST/SGOT 34 U/L (12-37); Bilirubin, Total 0.3 mg/dL (0.1-1.0); Blood Urea Nitrogen 16 mg/dL (8-24); Bun/Creatinine Ratio 19.2 (12.0-20.0); CO2, Blood 26 mmol/L (21-32); Calcium, Blood 9.3 mg/dL (8.5-10.1); Chloride, Blood 104 mmol/L (98-108); Creatinine, Blood 0.83 mg/dL (0.40-1.00); Globulin, Blood 4.5 g/dL (2.2-4.0); Glomerular Filtration Rate >60 (60-); Glucose, Blood 106 mg/dL (70-99); Phosphorus, Blood 3.6 mg/dL (2.5-4.9); Potassium, Blood 4.6 mmol/L (3.5-5.5); Sodium, Blood 137 mmol/L (136-145); Total Protein, Blood 8.3 g/dL (6.4-8.2)
[2017-11-02 17:23] LABS: Alanine Aminotransfer (ALT/SGP 30 U/L (12-78)
[2018-08-20] MEDS ORDERED: TRAZ50 PO (01:13)
[2018-08-20] MEDS ORDERED: FOLGARD TABLET1 EACH PO (01:14)
[2018-08-20] MEDS ORDERED: SACC250C PO (01:15)
[2018-08-20] MEDS ORDERED: Bactrim Ds Tab1 EACH PO (01:15)
[2018-08-20] MEDS ORDERED: ACYCLOVIR SOD PO (01:16)
[2018-08-20] MEDS ORDERED: VORI200 PO (01:17)
[2018-08-20] MEDS ORDERED: GABA100 PO (01:18)
[2018-08-20] MEDS ORDERED: ONDA4ODT (01:18)
[2018-08-20] MEDS ORDERED: ACET325 PO (01:19)
[2018-08-20] MEDS ORDERED: ENOX40I SC (01:20)
[2018-08-20] MEDS ORDERED: LOSA25 PO (01:25)
[2018-08-20] MEDS ORDERED: CITA10S PO (01:25)
[2018-08-20] MEDS ORDERED: MELA3 PO (01:26)
[2018-08-20] MEDS ORDERED: METF500C PO (01:26)
[2018-08-20] MEDS ORDERED: Omeprazole20 M1 PO (01:27)
[2018-08-20] MEDS ORDERED: POTCHL10ER PO (01:28)
[2018-08-20] MEDS ORDERED: PRED10 PO (01:29)
[2018-08-22] MEDS ORDERED: Zovirax200 MG PO (16:45)
[2018-08-22] MEDS ORDERED: CEFP200 PO (16:56)
== END 2017-11-02 10:30 | disposition home or self-care (01) ==
LOC: ATC 00:48
PROVIDERS: Internal Medicine Hematology & Oncology
DX: C92.40 Acute promyelocytic leukemia, not having achieved remission (principal); Z79.899 Other long term (current) drug therapy
CPT/HCPCS: 36592; 80053; 83735; 84100; 85025

== ENCOUNTER 2017-11-04 00:25 | Day surgery (SDC) | payer OTHER ==
[2017-11-04 09:29] LABS: BASOPHILS PERCENT AUTO 0 % (0-2); EOSINOPHILS ABSOLUTE AUTO 0.01 K/mm3 (0.00-0.68); EOSINOPHILS PERCENT AUTO 0 % (0-6); Hematocrit 31.6 % (33.0-51.0); Hemoglobin 10.1 g/dL (11.5-16.0); IMMATURE GRAN ABSOLUTE AUTO 0.02 K/mm3 (0.00-0.10); IMMATURE GRAN PERCENT AUTO 1 % (0-1); LYMPHOCYTES ABSOLUTE AUTO 0.99 K/mm3 (0.84-5.20); LYMPHOCYTES PERCENT AUTO 44 % (21-46); MONOCYTES ABSOLUTE AUTO 0.25 K/mm3 (0.16-1.47); MONOCYTES PERCENT AUTO 11 % (4-13); Mean Corpuscular HGB 28.1 pg (26.0-34.0); Mean Corpuscular Volume 88 fL (80-100); NEUTROPHILS PERCENT AUTO 44 % (41-73); Platelet Count 227 K/mm3 (150-400); RDW Coefficient Variation 17.3 % (11.7-14.2); Red Blood Cell Count 3.59 M/mm3 (3.80-5.20); White Blood Cell Count 2.27 K/mm3 (4.00-11.30)
[2017-11-04 09:52] LABS: Alanine Aminotransfer (ALT/SGP 22 U/L (12-78); Albumin, Blood 3.7 g/dL (3.4-5.0); Albumin/Globulin Ratio 0.9 (0.8-1.8); Alk Phos 62 U/L (50-136); Anion Gap 9 mmol/L (6-16); Aspartate Aminotrans (AST/SGOT 32 U/L (12-37); Bilirubin, Total 0.2 mg/dL (0.1-1.0); Blood Urea Nitrogen 15 mg/dL (8-24); Bun/Creatinine Ratio 18.3 (12.0-20.0); CO2, Blood 24 mmol/L (21-32); Calcium, Blood 9.2 mg/dL (8.5-10.1); Chloride, Blood 100 mmol/L (98-108); Creatinine, Blood 0.82 mg/dL (0.40-1.00); Globulin, Blood 4.3 g/dL (2.2-4.0); Glomerular Filtration Rate >60 (60-); Glucose, Blood 150 mg/dL (70-99); Magnesium, Blood 1.6 mg/dL (1.6-2.4); Phosphorus, Blood 4.2 mg/dL (2.5-4.9); Potassium, Blood 4.1 mmol/L (3.5-5.5); Sodium, Blood 133 mmol/L (136-145)
[2018-08-20] MEDS ORDERED: TRAZ50 PO (01:13)
[2018-08-20] MEDS ORDERED: FOLGARD TABLET1 EACH PO (01:14)
[2018-08-20] MEDS ORDERED: SACC250C PO (01:15)
[2018-08-20] MEDS ORDERED: Bactrim Ds Tab1 EACH PO (01:15)
[2018-08-20] MEDS ORDERED: ACYCLOVIR SOD PO (01:16)
[2018-08-20] MEDS ORDERED: VORI200 PO (01:17)
[2018-08-20] MEDS ORDERED: GABA100 PO (01:18)
[2018-08-20] MEDS ORDERED: ONDA4ODT (01:18)
[2018-08-20] MEDS ORDERED: ACET325 PO (01:19)
[2018-08-20] MEDS ORDERED: ENOX40I SC (01:20)
[2018-08-20] MEDS ORDERED: CITA10S PO (01:25)
[2018-08-20] MEDS ORDERED: LOSA25 PO (01:25)
[2018-08-20] MEDS ORDERED: MELA3 PO (01:26)
[2018-08-20] MEDS ORDERED: METF500C PO (01:26)
[2018-08-20] MEDS ORDERED: Omeprazole20 M1 PO (01:27)
[2018-08-20] MEDS ORDERED: POTCHL10ER PO (01:28)
[2018-08-20] MEDS ORDERED: PRED10 PO (01:29)
[2018-08-22] MEDS ORDERED: Zovirax200 MG PO (16:45)
[2018-08-22] MEDS ORDERED: CEFP200 PO (16:56)
== END 2017-11-04 09:30 | disposition home or self-care (01) ==
LOC: ATC 00:25
PROVIDERS: Internal Medicine Hematology & Oncology
DX: C92.40 Acute promyelocytic leukemia, not having achieved remission (principal)
CPT/HCPCS: 36592; 80053; 83735; 84100; 85025

== ENCOUNTER 2017-11-08 00:21 | Day surgery (SDC) | payer OTHER ==
[2017-11-08 09:36] LABS: BASOPHILS PERCENT AUTO 0 % (0-2); EOSINOPHILS ABSOLUTE AUTO 0.01 K/mm3 (0.00-0.68); EOSINOPHILS PERCENT AUTO 0 % (0-6); Hematocrit 34.2 % (33.0-51.0); Hemoglobin 10.7 g/dL (11.5-16.0); IMMATURE GRAN ABSOLUTE AUTO 0.03 K/mm3 (0.00-0.10); IMMATURE GRAN PERCENT AUTO 1 % (0-1); LYMPHOCYTES ABSOLUTE AUTO 1.17 K/mm3 (0.84-5.20); LYMPHOCYTES PERCENT AUTO 39 % (21-46); MONOCYTES ABSOLUTE AUTO 0.53 K/mm3 (0.16-1.47); MONOCYTES PERCENT AUTO 18 % (4-13); Mean Corpuscular HGB Conc 31.3 g/dL (31.5-36.5); Mean Corpuscular Volume 90 fL (80-100); Mean Platelet Volume 9.2 fL (9.1-12.4); NEUTROPHILS ABSOLUTE AUTO 1.25 K/mm3 (1.96-9.15); NEUTROPHILS PERCENT AUTO 42 % (41-73); Platelet Count 287 K/mm3 (150-400); RDW Coefficient Variation 17.4 % (11.7-14.2); RDW Standard Deviation 57.7 fL (35.1-46.3); Red Blood Cell Count 3.82 M/mm3 (3.80-5.20); White Blood Cell Count 2.99 K/mm3 (4.00-11.30)
[2017-11-08 09:57] LABS: Alanine Aminotransfer (ALT/SGP 20 U/L (12-78); Albumin, Blood 3.9 g/dL (3.4-5.0); Albumin/Globulin Ratio 0.8 (0.8-1.8); Alk Phos 56 U/L (50-136); Anion Gap 11 mmol/L (6-16); Aspartate Aminotrans (AST/SGOT 31 U/L (12-37); Bilirubin, Total 0.3 mg/dL (0.1-1.0); Blood Urea Nitrogen 27 mg/dL (8-24); Bun/Creatinine Ratio 28.3 (12.0-20.0); CO2, Blood 23 mmol/L (21-32); Calcium, Blood 9.3 mg/dL (8.5-10.1); Chloride, Blood 103 mmol/L (98-108); Creatinine, Blood 0.96 mg/dL (0.40-1.00); Globulin, Blood 4.6 g/dL (2.2-4.0); Glomerular Filtration Rate >60 (60-); Glucose, Blood 152 mg/dL (70-99); Magnesium, Blood 1.9 mg/dL (1.6-2.4); Phosphorus, Blood 3.6 mg/dL (2.5-4.9); Potassium, Blood 4.3 mmol/L (3.5-5.5); Sodium, Blood 137 mmol/L (136-145); Total Protein, Blood 8.5 g/dL (6.4-8.2)
[2018-08-20] MEDS ORDERED: TRAZ50 PO (01:13)
[2018-08-20] MEDS ORDERED: FOLGARD TABLET1 EACH PO (01:14)
[2018-08-20] MEDS ORDERED: SACC250C PO (01:15)
[2018-08-20] MEDS ORDERED: Bactrim Ds Tab1 EACH PO (01:15)
[2018-08-20] MEDS ORDERED: ACYCLOVIR SOD PO (01:16)
[2018-08-20] MEDS ORDERED: VORI200 PO (01:17)
[2018-08-20] MEDS ORDERED: ONDA4ODT (01:18)
[2018-08-20] MEDS ORDERED: GABA100 PO (01:18)
[2018-08-20] MEDS ORDERED: ACET325 PO (01:19)
[2018-08-20] MEDS ORDERED: ENOX40I SC (01:20)
[2018-08-20] MEDS ORDERED: CITA10S PO (01:25)
[2018-08-20] MEDS ORDERED: LOSA25 PO (01:25)
[2018-08-20] MEDS ORDERED: METF500C PO (01:26)
[2018-08-20] MEDS ORDERED: MELA3 PO (01:26)
[2018-08-20] MEDS ORDERED: Omeprazole20 M1 PO (01:27)
[2018-08-20] MEDS ORDERED: POTCHL10ER PO (01:28)
[2018-08-20] MEDS ORDERED: PRED10 PO (01:29)
[2018-08-22] MEDS ORDERED: Zovirax200 MG PO (16:45)
[2018-08-22] MEDS ORDERED: CEFP200 PO (16:56)
== END 2017-11-08 09:31 | disposition home or self-care (01) ==
LOC: ATC 00:21
PROVIDERS: Internal Medicine Hematology & Oncology
DX: C92.40 Acute promyelocytic leukemia, not having achieved remission (principal); Z79.899 Other long term (current) drug therapy
CPT/HCPCS: 36592; 80053; 83735; 84100; 85025

== ENCOUNTER 2017-11-12 01:00 | Day surgery (SDC) | payer OTHER ==
[2017-11-12 10:10] LABS: BASOPHILS PERCENT AUTO 0 % (0-2); EOSINOPHILS PERCENT AUTO 0 % (0-6); Hematocrit 32.7 % (33.0-51.0); Hemoglobin 10.2 g/dL (11.5-16.0); IMMATURE GRAN ABSOLUTE AUTO 0.02 K/mm3 (0.00-0.10); IMMATURE GRAN PERCENT AUTO 1 % (0-1); LYMPHOCYTES ABSOLUTE AUTO 0.98 K/mm3 (0.84-5.20); LYMPHOCYTES PERCENT AUTO 44 % (21-46); MONOCYTES ABSOLUTE AUTO 0.46 K/mm3 (0.16-1.47); MONOCYTES PERCENT AUTO 21 % (4-13); Mean Corpuscular HGB 27.9 pg (26.0-34.0); Mean Corpuscular HGB Conc 31.2 g/dL (31.5-36.5); Mean Corpuscular Volume 89 fL (80-100); Mean Platelet Volume 9.1 fL (9.1-12.4); NEUTROPHILS ABSOLUTE AUTO 0.78 K/mm3 (1.96-9.15); NEUTROPHILS PERCENT AUTO 35 % (41-73); Platelet Count 256 K/mm3 (150-400); RDW Coefficient Variation 16.8 % (11.7-14.2); RDW Standard Deviation 54.5 fL (35.1-46.3); Red Blood Cell Count 3.66 M/mm3 (3.80-5.20); White Blood Cell Count 2.24 K/mm3 (4.00-11.30)
[2017-11-12 10:26] LABS: Alanine Aminotransfer (ALT/SGP 24 U/L (12-78); Albumin, Blood 3.7 g/dL (3.4-5.0); Albumin/Globulin Ratio 0.8 (0.8-1.8); Alk Phos 53 U/L (50-136); Anion Gap 9 mmol/L (6-16); Aspartate Aminotrans (AST/SGOT 30 U/L (12-37); Bilirubin, Total 0.3 mg/dL (0.1-1.0); Blood Urea Nitrogen 22 mg/dL (8-24); Bun/Creatinine Ratio 25.1 (12.0-20.0); CO2, Blood 25 mmol/L (21-32); Chloride, Blood 104 mmol/L (98-108); Creatinine, Blood 0.88 mg/dL (0.40-1.00); Globulin, Blood 4.4 g/dL (2.2-4.0); Glomerular Filtration Rate >60 (60-); Glucose, Blood 114 mg/dL (70-99); Magnesium, Blood 1.9 mg/dL (1.6-2.4); Phosphorus, Blood 3.6 mg/dL (2.5-4.9); Potassium, Blood 4.2 mmol/L (3.5-5.5); Sodium, Blood 138 mmol/L (136-145); Total Protein, Blood 8.1 g/dL (6.4-8.2)
[2018-08-20] MEDS ORDERED: TRAZ50 PO (01:13)
[2018-08-20] MEDS ORDERED: FOLGARD TABLET1 EACH PO (01:14)
[2018-08-20] MEDS ORDERED: SACC250C PO (01:15)
[2018-08-20] MEDS ORDERED: Bactrim Ds Tab1 EACH PO (01:15)
[2018-08-20] MEDS ORDERED: ACYCLOVIR SOD PO (01:16)
[2018-08-20] MEDS ORDERED: VORI200 PO (01:17)
[2018-08-20] MEDS ORDERED: ONDA4ODT (01:18)
[2018-08-20] MEDS ORDERED: GABA100 PO (01:18)
[2018-08-20] MEDS ORDERED: ACET325 PO (01:19)
[2018-08-20] MEDS ORDERED: ENOX40I SC (01:20)
[2018-08-20] MEDS ORDERED: CITA10S PO (01:25)
[2018-08-20] MEDS ORDERED: LOSA25 PO (01:25)
[2018-08-20] MEDS ORDERED: MELA3 PO (01:26)
[2018-08-20] MEDS ORDERED: METF500C PO (01:26)
[2018-08-20] MEDS ORDERED: Omeprazole20 M1 PO (01:27)
[2018-08-20] MEDS ORDERED: POTCHL10ER PO (01:28)
[2018-08-20] MEDS ORDERED: PRED10 PO (01:29)
[2018-08-22] MEDS ORDERED: Zovirax200 MG PO (16:45)
[2018-08-22] MEDS ORDERED: CEFP200 PO (16:56)
== END 2017-11-12 11:04 | disposition home or self-care (01) ==
LOC: ATC 01:00
PROVIDERS: Internal Medicine Hematology & Oncology
DX: C92.40 Acute promyelocytic leukemia, not having achieved remission (principal); Z79.899 Other long term (current) drug therapy
CPT/HCPCS: 36592; 80053; 83735; 84100; 85025

== ENCOUNTER 2017-11-15 00:40 | Day surgery (SDC) | payer OTHER ==
[2017-11-15 09:58] LABS: BASOPHILS PERCENT AUTO 0 % (0-2); EOSINOPHILS PERCENT AUTO 0 % (0-6); Hematocrit 34.5 % (33.0-51.0); Hemoglobin 10.7 g/dL (11.5-16.0); IMMATURE GRAN ABSOLUTE AUTO 0.04 K/mm3 (0.00-0.10); IMMATURE GRAN PERCENT AUTO 1 % (0-1); LYMPHOCYTES ABSOLUTE AUTO 1.39 K/mm3 (0.84-5.20); LYMPHOCYTES PERCENT AUTO 44 % (21-46); MONOCYTES ABSOLUTE AUTO 0.48 K/mm3 (0.16-1.47); MONOCYTES PERCENT AUTO 15 % (4-13); Mean Corpuscular HGB 27.9 pg (26.0-34.0); Mean Corpuscular Volume 90 fL (80-100); Mean Platelet Volume 9.1 fL (9.1-12.4); NEUTROPHILS ABSOLUTE AUTO 1.25 K/mm3 (1.96-9.15); NEUTROPHILS PERCENT AUTO 40 % (41-73); Platelet Count 250 K/mm3 (150-400); RDW Standard Deviation 55.9 fL (35.1-46.3); Red Blood Cell Count 3.84 M/mm3 (3.80-5.20); White Blood Cell Count 3.16 K/mm3 (4.00-11.30)
[2017-11-15 10:25] LABS: Alanine Aminotransfer (ALT/SGP 22 U/L (12-78); Albumin, Blood 3.7 g/dL (3.4-5.0); Albumin/Globulin Ratio 0.8 (0.8-1.8); Alk Phos 60 U/L (50-136); Anion Gap 9 mmol/L (6-16); Aspartate Aminotrans (AST/SGOT 37 U/L (12-37); Bilirubin, Total 0.3 mg/dL (0.1-1.0); Blood Urea Nitrogen 18 mg/dL (8-24); Bun/Creatinine Ratio 20.7 (12.0-20.0); CO2, Blood 25 mmol/L (21-32); Calcium, Blood 9.2 mg/dL (8.5-10.1); Chloride, Blood 106 mmol/L (98-108); Creatinine, Blood 0.87 mg/dL (0.40-1.00); Globulin, Blood 4.7 g/dL (2.2-4.0); Glomerular Filtration Rate >60 (60-); Glucose, Blood 105 mg/dL (70-99); Magnesium, Blood 1.9 mg/dL (1.6-2.4); Phosphorus, Blood 3.2 mg/dL (2.5-4.9); Potassium, Blood 4.3 mmol/L (3.5-5.5); Sodium, Blood 140 mmol/L (136-145); Total Protein, Blood 8.4 g/dL (6.4-8.2)
[2018-08-20] MEDS ORDERED: TRAZ50 PO (01:13)
[2018-08-20] MEDS ORDERED: FOLGARD TABLET1 EACH PO (01:14)
[2018-08-20] MEDS ORDERED: SACC250C PO (01:15)
[2018-08-20] MEDS ORDERED: Bactrim Ds Tab1 EACH PO (01:15)
[2018-08-20] MEDS ORDERED: ACYCLOVIR SOD PO (01:16)
[2018-08-20] MEDS ORDERED: VORI200 PO (01:17)
[2018-08-20] MEDS ORDERED: ONDA4ODT (01:18)
[2018-08-20] MEDS ORDERED: GABA100 PO (01:18)
[2018-08-20] MEDS ORDERED: ACET325 PO (01:19)
[2018-08-20] MEDS ORDERED: ENOX40I SC (01:20)
[2018-08-20] MEDS ORDERED: CITA10S PO (01:25)
[2018-08-20] MEDS ORDERED: LOSA25 PO (01:25)
[2018-08-20] MEDS ORDERED: MELA3 PO (01:26)
[2018-08-20] MEDS ORDERED: METF500C PO (01:26)
[2018-08-20] MEDS ORDERED: Omeprazole20 M1 PO (01:27)
[2018-08-20] MEDS ORDERED: POTCHL10ER PO (01:28)
[2018-08-20] MEDS ORDERED: PRED10 PO (01:29)
[2018-08-22] MEDS ORDERED: Zovirax200 MG PO (16:45)
[2018-08-22] MEDS ORDERED: CEFP200 PO (16:56)
== END 2017-11-15 09:54 | disposition home or self-care (01) ==
LOC: ATC 00:40
PROVIDERS: Internal Medicine Hematology & Oncology
DX: C92.40 Acute promyelocytic leukemia, not having achieved remission (principal)
CPT/HCPCS: 36592; 80053; 83735; 84100; 85025

== ENCOUNTER 2017-11-18 01:11 | Day surgery (SDC) | payer OTHER ==
[2017-11-18 10:07] LABS: BASOPHILS PERCENT AUTO 0 % (0-2); EOSINOPHILS PERCENT AUTO 0 % (0-6); Hematocrit 33.7 % (33.0-51.0); Hemoglobin 10.5 g/dL (11.5-16.0); IMMATURE GRAN ABSOLUTE AUTO 0.05 K/mm3 (0.00-0.10); IMMATURE GRAN PERCENT AUTO 2 % (0-1); LYMPHOCYTES ABSOLUTE AUTO 1.15 K/mm3 (0.84-5.20); LYMPHOCYTES PERCENT AUTO 40 % (21-46); MONOCYTES ABSOLUTE AUTO 0.42 K/mm3 (0.16-1.47); MONOCYTES PERCENT AUTO 15 % (4-13); Mean Corpuscular HGB 27.9 pg (26.0-34.0); Mean Corpuscular HGB Conc 31.2 g/dL (31.5-36.5); Mean Corpuscular Volume 89 fL (80-100); Mean Platelet Volume 9.4 fL (9.1-12.4); NEUTROPHILS ABSOLUTE AUTO 1.26 K/mm3 (1.96-9.15); NEUTROPHILS PERCENT AUTO 44 % (41-73); Platelet Count 240 K/mm3 (150-400); RDW Coefficient Variation 16.8 % (11.7-14.2); RDW Standard Deviation 54.5 fL (35.1-46.3); Red Blood Cell Count 3.77 M/mm3 (3.80-5.20); White Blood Cell Count 2.88 K/mm3 (4.00-11.30)
[2017-11-18 10:21] LABS: Alanine Aminotransfer (ALT/SGP 23 U/L (12-78); Albumin, Blood 3.7 g/dL (3.4-5.0); Albumin/Globulin Ratio 0.8 (0.8-1.8); Alk Phos 53 U/L (50-136); Anion Gap 9 mmol/L (6-16); Aspartate Aminotrans (AST/SGOT 30 U/L (12-37); Bilirubin, Total 0.2 mg/dL (0.1-1.0); Blood Urea Nitrogen 30 mg/dL (8-24); Bun/Creatinine Ratio 32.1 (12.0-20.0); CO2, Blood 25 mmol/L (21-32); Chloride, Blood 103 mmol/L (98-108); Creatinine, Blood 0.94 mg/dL (0.40-1.00); Globulin, Blood 4.6 g/dL (2.2-4.0); Glomerular Filtration Rate >60 (60-); Glucose, Blood 112 mg/dL (70-99); Magnesium, Blood 1.9 mg/dL (1.6-2.4); Phosphorus, Blood 3.4 mg/dL (2.5-4.9); Potassium, Blood 4.3 mmol/L (3.5-5.5); Sodium, Blood 137 mmol/L (136-145); Total Protein, Blood 8.3 g/dL (6.4-8.2)
[2018-08-20] MEDS ORDERED: TRAZ50 PO (01:13)
[2018-08-20] MEDS ORDERED: FOLGARD TABLET1 EACH PO (01:14)
[2018-08-20] MEDS ORDERED: Bactrim Ds Tab1 EACH PO (01:15)
[2018-08-20] MEDS ORDERED: SACC250C PO (01:15)
[2018-08-20] MEDS ORDERED: ACYCLOVIR SOD PO (01:16)
[2018-08-20] MEDS ORDERED: VORI200 PO (01:17)
[2018-08-20] MEDS ORDERED: ONDA4ODT (01:18)
[2018-08-20] MEDS ORDERED: GABA100 PO (01:18)
[2018-08-20] MEDS ORDERED: ACET325 PO (01:19)
[2018-08-20] MEDS ORDERED: ENOX40I SC (01:20)
[2018-08-20] MEDS ORDERED: CITA10S PO (01:25)
[2018-08-20] MEDS ORDERED: LOSA25 PO (01:25)
[2018-08-20] MEDS ORDERED: MELA3 PO (01:26)
[2018-08-20] MEDS ORDERED: METF500C PO (01:26)
[2018-08-20] MEDS ORDERED: Omeprazole20 M1 PO (01:27)
[2018-08-20] MEDS ORDERED: POTCHL10ER PO (01:28)
[2018-08-20] MEDS ORDERED: PRED10 PO (01:29)
[2018-08-22] MEDS ORDERED: Zovirax200 MG PO (16:45)
[2018-08-22] MEDS ORDERED: CEFP200 PO (16:56)
== END 2017-11-18 09:50 | disposition home or self-care (01) ==
LOC: ATC 01:11
PROVIDERS: Internal Medicine Hematology & Oncology
DX: C92.40 Acute promyelocytic leukemia, not having achieved remission (principal)
CPT/HCPCS: 36592; 80053; 83735; 84100; 85025

== ENCOUNTER 2017-11-22 00:48 | Day surgery (SDC) | payer OTHER ==
[2017-11-22 10:21] LABS: BASOPHILS PERCENT AUTO 0 % (0-2); EOSINOPHILS PERCENT AUTO 0 % (0-6); Hematocrit 35.1 % (33.0-51.0); Hemoglobin 11.2 g/dL (11.5-16.0); IMMATURE GRAN ABSOLUTE AUTO 0.04 K/mm3 (0.00-0.10); IMMATURE GRAN PERCENT AUTO 2 % (0-1); LYMPHOCYTES ABSOLUTE AUTO 1.08 K/mm3 (0.84-5.20); LYMPHOCYTES PERCENT AUTO 42 % (21-46); MONOCYTES ABSOLUTE AUTO 0.32 K/mm3 (0.16-1.47); MONOCYTES PERCENT AUTO 13 % (4-13); Mean Corpuscular HGB 28.1 pg (26.0-34.0); Mean Corpuscular HGB Conc 31.9 g/dL (31.5-36.5); Mean Corpuscular Volume 88 fL (80-100); Mean Platelet Volume 9.4 fL (9.1-12.4); NEUTROPHILS ABSOLUTE AUTO 1.11 K/mm3 (1.96-9.15); NEUTROPHILS PERCENT AUTO 44 % (41-73); Platelet Count 224 K/mm3 (150-400); RDW Coefficient Variation 16.7 % (11.7-14.2); Red Blood Cell Count 3.98 M/mm3 (3.80-5.20); White Blood Cell Count 2.55 K/mm3 (4.00-11.30)
[2017-11-22 10:41] LABS: Alanine Aminotransfer (ALT/SGP 23 U/L (12-78); Albumin/Globulin Ratio 0.8 (0.8-1.8); Alk Phos 62 U/L (50-136); Anion Gap 7 mmol/L (6-16); Aspartate Aminotrans (AST/SGOT 32 U/L (12-37); Bilirubin, Total 0.3 mg/dL (0.1-1.0); Blood Urea Nitrogen 22 mg/dL (8-24); Bun/Creatinine Ratio 23.1 (12.0-20.0); CO2, Blood 26 mmol/L (21-32); Calcium, Blood 9.2 mg/dL (8.5-10.1); Chloride, Blood 100 mmol/L (98-108); Creatinine, Blood 0.95 mg/dL (0.40-1.00); Globulin, Blood 4.9 g/dL (2.2-4.0); Glomerular Filtration Rate >60 (60-); Glucose, Blood 130 mg/dL (70-99); Phosphorus, Blood 3.8 mg/dL (2.5-4.9); Potassium, Blood 4.5 mmol/L (3.5-5.5); Sodium, Blood 133 mmol/L (136-145); Total Protein, Blood 8.9 g/dL (6.4-8.2)
[2018-08-20] MEDS ORDERED: TRAZ50 PO (01:13)
[2018-08-20] MEDS ORDERED: FOLGARD TABLET1 EACH PO (01:14)
[2018-08-20] MEDS ORDERED: Bactrim Ds Tab1 EACH PO (01:15)
[2018-08-20] MEDS ORDERED: SACC250C PO (01:15)
[2018-08-20] MEDS ORDERED: ACYCLOVIR SOD PO (01:16)
[2018-08-20] MEDS ORDERED: VORI200 PO (01:17)
[2018-08-20] MEDS ORDERED: GABA100 PO (01:18)
[2018-08-20] MEDS ORDERED: ONDA4ODT (01:18)
[2018-08-20] MEDS ORDERED: ACET325 PO (01:19)
[2018-08-20] MEDS ORDERED: ENOX40I SC (01:20)
[2018-08-20] MEDS ORDERED: LOSA25 PO (01:25)
[2018-08-20] MEDS ORDERED: CITA10S PO (01:25)
[2018-08-20] MEDS ORDERED: METF500C PO (01:26)
[2018-08-20] MEDS ORDERED: MELA3 PO (01:26)
[2018-08-20] MEDS ORDERED: Omeprazole20 M1 PO (01:27)
[2018-08-20] MEDS ORDERED: POTCHL10ER PO (01:28)
[2018-08-20] MEDS ORDERED: PRED10 PO (01:29)
[2018-08-22] MEDS ORDERED: Zovirax200 MG PO (16:45)
[2018-08-22] MEDS ORDERED: CEFP200 PO (16:56)
== END 2017-11-22 09:57 | disposition home or self-care (01) ==
LOC: ATC 00:48
PROVIDERS: Internal Medicine Hematology & Oncology
DX: C92.40 Acute promyelocytic leukemia, not having achieved remission (principal)
CPT/HCPCS: 36591; 80053; 83735; 84100; 85025

== ENCOUNTER 2017-11-29 01:14 | Day surgery (SDC) | payer OTHER ==
[2017-11-29 09:43] LABS: BASOPHILS PERCENT AUTO 0 % (0-2); EOSINOPHILS PERCENT AUTO 0 % (0-6); Hematocrit 31.2 % (33.0-51.0); Hemoglobin 9.9 g/dL (11.5-16.0); IMMATURE GRAN ABSOLUTE AUTO 0.04 K/mm3 (0.00-0.10); IMMATURE GRAN PERCENT AUTO 1 % (0-1); LYMPHOCYTES ABSOLUTE AUTO 0.72 K/mm3 (0.84-5.20); LYMPHOCYTES PERCENT AUTO 16 % (21-46); MONOCYTES ABSOLUTE AUTO 0.38 K/mm3 (0.16-1.47); MONOCYTES PERCENT AUTO 8 % (4-13); Mean Corpuscular HGB 27.9 pg (26.0-34.0); Mean Corpuscular HGB Conc 31.7 g/dL (31.5-36.5); Mean Corpuscular Volume 88 fL (80-100); Mean Platelet Volume 9.3 fL (9.1-12.4); NEUTROPHILS ABSOLUTE AUTO 3.38 K/mm3 (1.96-9.15); NEUTROPHILS PERCENT AUTO 75 % (41-73); Platelet Count 211 K/mm3 (150-400); RDW Coefficient Variation 16.1 % (11.7-14.2); RDW Standard Deviation 52.4 fL (35.1-46.3); Red Blood Cell Count 3.55 M/mm3 (3.80-5.20); White Blood Cell Count 4.52 K/mm3 (4.00-11.30)
[2017-11-29 10:04] LABS: Alanine Aminotransfer (ALT/SGP 20 U/L (12-78); Albumin, Blood 3.6 g/dL (3.4-5.0); Albumin/Globulin Ratio 0.8 (0.8-1.8); Alk Phos 68 U/L (50-136); Anion Gap 10 mmol/L (6-16); Aspartate Aminotrans (AST/SGOT 32 U/L (12-37); Bilirubin, Total 0.2 mg/dL (0.1-1.0); Blood Urea Nitrogen 17 mg/dL (8-24); Bun/Creatinine Ratio 19.9 (12.0-20.0); CO2, Blood 23 mmol/L (21-32); Calcium, Blood 8.7 mg/dL (8.5-10.1); Chloride, Blood 100 mmol/L (98-108); Creatinine, Blood 0.85 mg/dL (0.40-1.00); Globulin, Blood 4.8 g/dL (2.2-4.0); Glomerular Filtration Rate >60 (60-); Glucose, Blood 140 mg/dL (70-99); Magnesium, Blood 1.9 mg/dL (1.6-2.4); Phosphorus, Blood 2.6 mg/dL (2.5-4.9); Potassium, Blood 4.1 mmol/L (3.5-5.5); Sodium, Blood 133 mmol/L (136-145); Total Protein, Blood 8.4 g/dL (6.4-8.2)
[2018-08-20] MEDS ORDERED: TRAZ50 PO (01:13)
[2018-08-20] MEDS ORDERED: FOLGARD TABLET1 EACH PO (01:14)
[2018-08-20] MEDS ORDERED: Bactrim Ds Tab1 EACH PO (01:15)
[2018-08-20] MEDS ORDERED: SACC250C PO (01:15)
[2018-08-20] MEDS ORDERED: ACYCLOVIR SOD PO (01:16)
[2018-08-20] MEDS ORDERED: VORI200 PO (01:17)
[2018-08-20] MEDS ORDERED: ONDA4ODT (01:18)
[2018-08-20] MEDS ORDERED: GABA100 PO (01:18)
[2018-08-20] MEDS ORDERED: ACET325 PO (01:19)
[2018-08-20] MEDS ORDERED: ENOX40I SC (01:20)
[2018-08-20] MEDS ORDERED: LOSA25 PO (01:25)
[2018-08-20] MEDS ORDERED: CITA10S PO (01:25)
[2018-08-20] MEDS ORDERED: METF500C PO (01:26)
[2018-08-20] MEDS ORDERED: MELA3 PO (01:26)
[2018-08-20] MEDS ORDERED: Omeprazole20 M1 PO (01:27)
[2018-08-20] MEDS ORDERED: POTCHL10ER PO (01:28)
[2018-08-20] MEDS ORDERED: PRED10 PO (01:29)
[2018-08-22] MEDS ORDERED: Zovirax200 MG PO (16:45)
[2018-08-22] MEDS ORDERED: CEFP200 PO (16:56)
== END 2017-11-29 09:35 | disposition home or self-care (01) ==
LOC: ATC 01:14
PROVIDERS: Internal Medicine Hematology & Oncology
DX: C92.00 Acute myeloblastic leukemia, not having achieved remission (principal); Z45.2 Encounter for adjustment and management of vascular access device; C92.40 Acute promyelocytic leukemia, not having achieved remission; C92.02 Acute myeloblastic leukemia, in relapse; E78.5 Hyperlipidemia, unspecified; Z79.899 Other long term (current) drug therapy
CPT/HCPCS: 36592; 80053; 83735; 84100; 85025

== ENCOUNTER 2017-12-02 00:51 | Day surgery (SDC) | payer OTHER ==
[2017-12-02 10:05] LABS: BASOPHILS PERCENT AUTO 0 % (0-2); EOSINOPHILS PERCENT AUTO 0 % (0-6); Hematocrit 32.7 % (33.0-51.0); Hemoglobin 10.4 g/dL (11.5-16.0); IMMATURE GRAN ABSOLUTE AUTO 0.04 K/mm3 (0.00-0.10); IMMATURE GRAN PERCENT AUTO 1 % (0-1); LYMPHOCYTES PERCENT AUTO 17 % (21-46); MONOCYTES ABSOLUTE AUTO 0.49 K/mm3 (0.16-1.47); MONOCYTES PERCENT AUTO 9 % (4-13); Mean Corpuscular HGB 27.7 pg (26.0-34.0); Mean Corpuscular HGB Conc 31.8 g/dL (31.5-36.5); Mean Corpuscular Volume 87 fL (80-100); Mean Platelet Volume 9.2 fL (9.1-12.4); NEUTROPHILS ABSOLUTE AUTO 4.21 K/mm3 (1.96-9.15); NEUTROPHILS PERCENT AUTO 73 % (41-73); Platelet Count 246 K/mm3 (150-400); Red Blood Cell Count 3.76 M/mm3 (3.80-5.20); White Blood Cell Count 5.74 K/mm3 (4.00-11.30)
[2017-12-02 10:35] LABS: Alanine Aminotransfer (ALT/SGP 22 U/L (12-78); Albumin, Blood 3.6 g/dL (3.4-5.0); Albumin/Globulin Ratio 0.7 (0.8-1.8); Alk Phos 62 U/L (50-136); Anion Gap 9 mmol/L (6-16); Aspartate Aminotrans (AST/SGOT 32 U/L (12-37); Bilirubin, Total 0.2 mg/dL (0.1-1.0); Blood Urea Nitrogen 19 mg/dL (8-24); Bun/Creatinine Ratio 21.7 (12.0-20.0); CO2, Blood 25 mmol/L (21-32); Calcium, Blood 9.5 mg/dL (8.5-10.1); Chloride, Blood 99 mmol/L (98-108); Creatinine, Blood 0.88 mg/dL (0.40-1.00); Globulin, Blood 5.3 g/dL (2.2-4.0); Glomerular Filtration Rate >60 (60-); Glucose, Blood 150 mg/dL (70-99); Magnesium, Blood 1.8 mg/dL (1.6-2.4); Potassium, Blood 4.1 mmol/L (3.5-5.5); Sodium, Blood 133 mmol/L (136-145); Total Protein, Blood 8.9 g/dL (6.4-8.2)
[2018-08-20] MEDS ORDERED: TRAZ50 PO (01:13)
[2018-08-20] MEDS ORDERED: FOLGARD TABLET1 EACH PO (01:14)
[2018-08-20] MEDS ORDERED: Bactrim Ds Tab1 EACH PO (01:15)
[2018-08-20] MEDS ORDERED: SACC250C PO (01:15)
[2018-08-20] MEDS ORDERED: ACYCLOVIR SOD PO (01:16)
[2018-08-20] MEDS ORDERED: VORI200 PO (01:17)
[2018-08-20] MEDS ORDERED: ONDA4ODT (01:18)
[2018-08-20] MEDS ORDERED: GABA100 PO (01:18)
[2018-08-20] MEDS ORDERED: ACET325 PO (01:19)
[2018-08-20] MEDS ORDERED: ENOX40I SC (01:20)
[2018-08-20] MEDS ORDERED: LOSA25 PO (01:25)
[2018-08-20] MEDS ORDERED: CITA10S PO (01:25)
[2018-08-20] MEDS ORDERED: MELA3 PO (01:26)
[2018-08-20] MEDS ORDERED: METF500C PO (01:26)
[2018-08-20] MEDS ORDERED: Omeprazole20 M1 PO (01:27)
[2018-08-20] MEDS ORDERED: POTCHL10ER PO (01:28)
[2018-08-20] MEDS ORDERED: PRED10 PO (01:29)
[2018-08-22] MEDS ORDERED: Zovirax200 MG PO (16:45)
[2018-08-22] MEDS ORDERED: CEFP200 PO (16:56)
== END 2017-12-02 09:50 | disposition home or self-care (01) ==
LOC: ATC 00:51
PROVIDERS: Internal Medicine Hematology & Oncology
DX: C92.40 Acute promyelocytic leukemia, not having achieved remission (principal)
CPT/HCPCS: 36592; 80053; 83735; 84100; 85025

== ENCOUNTER 2017-12-06 00:21 | Day surgery (SDC) | payer OTHER ==
[2017-12-06 10:33] LABS: BASOPHILS PERCENT AUTO 0 % (0-2); EOSINOPHILS PERCENT AUTO 0 % (0-6); Hematocrit 31.1 % (33.0-51.0); Hemoglobin 9.7 g/dL (11.5-16.0); IMMATURE GRAN ABSOLUTE AUTO 0.05 K/mm3 (0.00-0.10); IMMATURE GRAN PERCENT AUTO 1 % (0-1); LYMPHOCYTES ABSOLUTE AUTO 1.29 K/mm3 (0.84-5.20); LYMPHOCYTES PERCENT AUTO 27 % (21-46); MONOCYTES ABSOLUTE AUTO 0.62 K/mm3 (0.16-1.47); MONOCYTES PERCENT AUTO 13 % (4-13); Mean Corpuscular HGB 27.6 pg (26.0-34.0); Mean Corpuscular HGB Conc 31.2 g/dL (31.5-36.5); Mean Corpuscular Volume 89 fL (80-100); Mean Platelet Volume 9.6 fL (9.1-12.4); NEUTROPHILS ABSOLUTE AUTO 2.78 K/mm3 (1.96-9.15); NEUTROPHILS PERCENT AUTO 59 % (41-73); Platelet Count 265 K/mm3 (150-400); RDW Coefficient Variation 15.9 % (11.7-14.2); RDW Standard Deviation 51.8 fL (35.1-46.3); Red Blood Cell Count 3.51 M/mm3 (3.80-5.20); White Blood Cell Count 4.74 K/mm3 (4.00-11.30)
[2017-12-06 10:49] LABS: Alanine Aminotransfer (ALT/SGP 26 U/L (12-78); Albumin, Blood 3.5 g/dL (3.4-5.0); Albumin/Globulin Ratio 0.7 (0.8-1.8); Alk Phos 68 U/L (50-136); Anion Gap 7 mmol/L (6-16); Aspartate Aminotrans (AST/SGOT 33 U/L (12-37); Bilirubin, Total 0.1 mg/dL (0.1-1.0); Blood Urea Nitrogen 21 mg/dL (8-24); Bun/Creatinine Ratio 22.7 (12.0-20.0); CO2, Blood 25 mmol/L (21-32); Calcium, Blood 8.8 mg/dL (8.5-10.1); Chloride, Blood 102 mmol/L (98-108); Creatinine, Blood 0.93 mg/dL (0.40-1.00); Globulin, Blood 4.9 g/dL (2.2-4.0); Glomerular Filtration Rate >60 (60-); Glucose, Blood 131 mg/dL (70-99); Potassium, Blood 4.5 mmol/L (3.5-5.5); Sodium, Blood 134 mmol/L (136-145); Total Protein, Blood 8.4 g/dL (6.4-8.2)
[2018-08-20] MEDS ORDERED: TRAZ50 PO (01:13)
[2018-08-20] MEDS ORDERED: FOLGARD TABLET1 EACH PO (01:14)
[2018-08-20] MEDS ORDERED: Bactrim Ds Tab1 EACH PO (01:15)
[2018-08-20] MEDS ORDERED: SACC250C PO (01:15)
[2018-08-20] MEDS ORDERED: ACYCLOVIR SOD PO (01:16)
[2018-08-20] MEDS ORDERED: VORI200 PO (01:17)
[2018-08-20] MEDS ORDERED: GABA100 PO (01:18)
[2018-08-20] MEDS ORDERED: ONDA4ODT (01:18)
[2018-08-20] MEDS ORDERED: ACET325 PO (01:19)
[2018-08-20] MEDS ORDERED: ENOX40I SC (01:20)
[2018-08-20] MEDS ORDERED: CITA10S PO (01:25)
[2018-08-20] MEDS ORDERED: LOSA25 PO (01:25)
[2018-08-20] MEDS ORDERED: MELA3 PO (01:26)
[2018-08-20] MEDS ORDERED: METF500C PO (01:26)
[2018-08-20] MEDS ORDERED: Omeprazole20 M1 PO (01:27)
[2018-08-20] MEDS ORDERED: POTCHL10ER PO (01:28)
[2018-08-20] MEDS ORDERED: PRED10 PO (01:29)
[2018-08-22] MEDS ORDERED: Zovirax200 MG PO (16:45)
[2018-08-22] MEDS ORDERED: CEFP200 PO (16:56)
== END 2017-12-06 08:32 | disposition home or self-care (01) ==
LOC: ATC 00:21
PROVIDERS: Internal Medicine Hematology & Oncology
DX: C92.40 Acute promyelocytic leukemia, not having achieved remission (principal)
CPT/HCPCS: 36592; 80053; 85025

== ENCOUNTER 2017-12-09 01:05 | Day surgery (SDC) | payer OTHER ==
[2017-12-09] MEDS ORDERED: PSEU120ER PO (09:20)
[2017-12-09 09:33] LABS: BASOPHILS PERCENT AUTO 0 % (0-2); EOSINOPHILS PERCENT AUTO 0 % (0-6); Hematocrit 31.1 % (33.0-51.0); IMMATURE GRAN ABSOLUTE AUTO 0.17 K/mm3 (0.00-0.10); IMMATURE GRAN PERCENT AUTO 4 % (0-1); LYMPHOCYTES PERCENT AUTO 22 % (21-46); MONOCYTES ABSOLUTE AUTO 0.48 K/mm3 (0.16-1.47); MONOCYTES PERCENT AUTO 10 % (4-13); Mean Corpuscular HGB 27.4 pg (26.0-34.0); Mean Corpuscular HGB Conc 32.2 g/dL (31.5-36.5); Mean Platelet Volume 8.9 fL (9.1-12.4); NEUTROPHILS ABSOLUTE AUTO 3.01 K/mm3 (1.96-9.15); NEUTROPHILS PERCENT AUTO 65 % (41-73); NRBC ABSOLUTE 0.02 K/mm3 (0.00-0.02); NRBC Auto 0.4 /100 WBC (0.0-0.2); Platelet Count 266 K/mm3 (150-400); RDW Coefficient Variation 15.5 % (11.7-14.2); RDW Standard Deviation 47.9 fL (35.1-46.3); Red Blood Cell Count 3.65 M/mm3 (3.80-5.20); White Blood Cell Count 4.66 K/mm3 (4.00-11.30)
[2017-12-09 09:37] LABS: Mean Corpuscular Volume 85 fL (80-100)
[2017-12-09 09:54] LABS: Albumin, Blood 3.6 g/dL (3.4-5.0); Albumin/Globulin Ratio 0.8 (0.8-1.8); Bilirubin, Total 0.2 mg/dL (0.1-1.0); Bun/Creatinine Ratio 20.4 (12.0-20.0); Calcium, Blood 9.2 mg/dL (8.5-10.1); Creatinine, Blood 1.13 mg/dL (0.40-1.00); Globulin, Blood 4.6 g/dL (2.2-4.0); Magnesium, Blood 1.7 mg/dL (1.6-2.4); Phosphorus, Blood 2.4 mg/dL (2.5-4.9); Total Protein, Blood 8.2 g/dL (6.4-8.2)
[2018-08-20] MEDS ORDERED: TRAZ50 PO (01:13)
[2018-08-20] MEDS ORDERED: FOLGARD TABLET1 EACH PO (01:14)
[2018-08-20] MEDS ORDERED: Bactrim Ds Tab1 EACH PO (01:15)
[2018-08-20] MEDS ORDERED: SACC250C PO (01:15)
[2018-08-20] MEDS ORDERED: ACYCLOVIR SOD PO (01:16)
[2018-08-20] MEDS ORDERED: VORI200 PO (01:17)
[2018-08-20] MEDS ORDERED: ONDA4ODT (01:18)
[2018-08-20] MEDS ORDERED: GABA100 PO (01:18)
[2018-08-20] MEDS ORDERED: ACET325 PO (01:19)
[2018-08-20] MEDS ORDERED: ENOX40I SC (01:20)
[2018-08-20] MEDS ORDERED: LOSA25 PO (01:25)
[2018-08-20] MEDS ORDERED: CITA10S PO (01:25)
[2018-08-20] MEDS ORDERED: MELA3 PO (01:26)
[2018-08-20] MEDS ORDERED: METF500C PO (01:26)
[2018-08-20] MEDS ORDERED: Omeprazole20 M1 PO (01:27)
[2018-08-20] MEDS ORDERED: POTCHL10ER PO (01:28)
[2018-08-20] MEDS ORDERED: PRED10 PO (01:29)
[2018-08-22] MEDS ORDERED: Zovirax200 MG PO (16:45)
[2018-08-22] MEDS ORDERED: CEFP200 PO (16:56)
== END 2017-12-09 09:27 | disposition home or self-care (01) ==
LOC: ATC 01:05
PROVIDERS: Internal Medicine Hematology & Oncology
DX: C92.40 Acute promyelocytic leukemia, not having achieved remission (principal)
CPT/HCPCS: 36592; 80053; 83735; 84100; 85025

== ENCOUNTER → 2017-12-10 | Outpatient (CLI) | payer OTHER ==
[~2017-12-10] MED LIST changes: +ACET325 PO; +ACYCLOVIR SOD PO; +BENZ100A PO; +CEFP200 PO; +CITA10S PO; +ENOX40I SC; +FOLGARD TABLET1 EACH PO; +GABA100 PO; +LOSA25 PO; +MELA3 PO; +METF500C PO; +ONDA4ODT; +Omeprazole20 M1 PO; +POTCHL10ER PO; +PRED10 PO; +PSEU120ER PO; +SACC250C PO; +TRAZ50 PO; +VORI200 PO; +Zovirax200 MG PO
[2017-12-10 14:29] LABS: Alanine Aminotransfer (ALT/SGP 24 U/L (12-78); Albumin, Blood 3.3 g/dL (3.4-5.0); Albumin/Globulin Ratio 0.8 (0.8-1.8); Alk Phos 46 U/L (50-136); Anion Gap 10 mmol/L (6-16); Aspartate Aminotrans (AST/SGOT 33 U/L (12-37); Bilirubin, Total 0.4 mg/dL (0.1-1.0); Blood Urea Nitrogen 21 mg/dL (8-24); Bun/Creatinine Ratio 22.9 (12.0-20.0); CO2, Blood 24 mmol/L (21-32); Calcium, Blood 8.4 mg/dL (8.5-10.1); Chloride, Blood 95 mmol/L (98-108); Creatinine, Blood 0.92 mg/dL (0.40-1.00); Glomerular Filtration Rate >60 (60-); Glucose, Blood 169 mg/dL (70-99); Potassium, Blood 4.1 mmol/L (3.5-5.5); Sodium, Blood 129 mmol/L (136-145); Total Protein, Blood 7.3 g/dL (6.4-8.2)
== END | disposition home or self-care (01) ==
LOC: LAB 09:00
PROVIDERS: Internal Medicine Hematology & Oncology
DX: C92.00 Acute myeloblastic leukemia, not having achieved remission (principal)
CPT/HCPCS: 80053

== ENCOUNTER 2017-12-14 00:30 | Day surgery (SDC) | payer OTHER ==
[~2017-12-14 00:30] MED LIST changes: -ACET325 PO; -ACYCLOVIR SOD PO; -BENZ100A PO; -CEFP200 PO; -CITA10S PO; -ENOX40I SC; -FOLGARD TABLET1 EACH PO; -GABA100 PO; -LOSA25 PO; -MELA3 PO; -METF500C PO; -ONDA4ODT; -Omeprazole20 M1 PO; -POTCHL10ER PO; -PRED10 PO; -SACC250C PO; -TRAZ50 PO; -VORI200 PO; -Zovirax200 MG PO
[2017-12-14] MEDS ORDERED: BENZ100A PO (09:21)
[2017-12-14 09:47] LABS: BASOPHILS ABSOLUTE AUTO 0.01 K/mm3 (0.00-0.23); BASOPHILS PERCENT AUTO 0 % (0-2); EOSINOPHILS PERCENT AUTO 0 % (0-6); Hemoglobin 10.4 g/dL (11.5-16.0); IMMATURE GRAN ABSOLUTE AUTO 0.28 K/mm3 (0.00-0.10); IMMATURE GRAN PERCENT AUTO 4 % (0-1); LYMPHOCYTES ABSOLUTE AUTO 0.92 K/mm3 (0.84-5.20); LYMPHOCYTES PERCENT AUTO 13 % (21-46); MONOCYTES ABSOLUTE AUTO 0.52 K/mm3 (0.16-1.47); MONOCYTES PERCENT AUTO 7 % (4-13); Mean Corpuscular HGB 27.4 pg (26.0-34.0); Mean Corpuscular HGB Conc 31.5 g/dL (31.5-36.5); Mean Corpuscular Volume 87 fL (80-100); Mean Platelet Volume 8.8 fL (9.1-12.4); NEUTROPHILS ABSOLUTE AUTO 5.39 K/mm3 (1.96-9.15); NEUTROPHILS PERCENT AUTO 76 % (41-73); NRBC Auto 1.4 /100 WBC (0.0-0.2); Platelet Count 224 K/mm3 (150-400); RDW Standard Deviation 49.6 fL (35.1-46.3); White Blood Cell Count 7.12 K/mm3 (4.00-11.30)
[2017-12-14 10:07] LABS: Alanine Aminotransfer (ALT/SGP 23 U/L (12-78); Albumin, Blood 3.4 g/dL (3.4-5.0); Albumin/Globulin Ratio 0.7 (0.8-1.8); Alk Phos 63 U/L (50-136); Anion Gap 8 mmol/L (6-16); Aspartate Aminotrans (AST/SGOT 27 U/L (12-37); Bilirubin, Total 0.2 mg/dL (0.1-1.0); Blood Urea Nitrogen 16 mg/dL (8-24); CO2, Blood 27 mmol/L (21-32); Calcium, Blood 9.3 mg/dL (8.5-10.1); Chloride, Blood 98 mmol/L (98-108); Creatinine, Blood 0.94 mg/dL (0.40-1.00); Globulin, Blood 4.7 g/dL (2.2-4.0); Glomerular Filtration Rate >60 (60-); Glucose, Blood 182 mg/dL (70-99); Phosphorus, Blood 3.2 mg/dL (2.5-4.9); Potassium, Blood 4.2 mmol/L (3.5-5.5); Sodium, Blood 133 mmol/L (136-145); Total Protein, Blood 8.1 g/dL (6.4-8.2)
[2018-08-20] MEDS ORDERED: TRAZ50 PO (01:13)
[2018-08-20] MEDS ORDERED: FOLGARD TABLET1 EACH PO (01:14)
[2018-08-20] MEDS ORDERED: SACC250C PO (01:15)
[2018-08-20] MEDS ORDERED: Bactrim Ds Tab1 EACH PO (01:15)
[2018-08-20] MEDS ORDERED: ACYCLOVIR SOD PO (01:16)
[2018-08-20] MEDS ORDERED: VORI200 PO (01:17)
[2018-08-20] MEDS ORDERED: ONDA4ODT (01:18)
[2018-08-20] MEDS ORDERED: GABA100 PO (01:18)
[2018-08-20] MEDS ORDERED: ACET325 PO (01:19)
[2018-08-20] MEDS ORDERED: ENOX40I SC (01:20)
[2018-08-20] MEDS ORDERED: LOSA25 PO (01:25)
[2018-08-20] MEDS ORDERED: CITA10S PO (01:25)
[2018-08-20] MEDS ORDERED: MELA3 PO (01:26)
[2018-08-20] MEDS ORDERED: METF500C PO (01:26)
[2018-08-20] MEDS ORDERED: Omeprazole20 M1 PO (01:27)
[2018-08-20] MEDS ORDERED: POTCHL10ER PO (01:28)
[2018-08-20] MEDS ORDERED: PRED10 PO (01:29)
[2018-08-22] MEDS ORDERED: Zovirax200 MG PO (16:45)
[2018-08-22] MEDS ORDERED: CEFP200 PO (16:56)
== END 2017-12-14 09:20 | disposition home or self-care (01) ==
LOC: ATC 00:30
PROVIDERS: Internal Medicine Hematology & Oncology
DX: C92.00 Acute myeloblastic leukemia, not having achieved remission (principal); C92.40 Acute promyelocytic leukemia, not having achieved remission; C92.02 Acute myeloblastic leukemia, in relapse; E78.5 Hyperlipidemia, unspecified; Z79.899 Other long term (current) drug therapy; Z45.2 Encounter for adjustment and management of vascular access device
CPT/HCPCS: 36592; 80053; 83735; 84100; 85025

== ENCOUNTER 2017-12-16 00:54 | Day surgery (SDC) | payer OTHER ==
[~2017-12-16 00:54] MED LIST changes: +BENZ100A PO
[2017-12-16 10:08] LABS: BASOPHILS PERCENT AUTO 0 % (0-2); EOSINOPHILS PERCENT AUTO 0 % (0-6); Hematocrit 31.2 % (33.0-51.0); Hemoglobin 9.8 g/dL (11.5-16.0); IMMATURE GRAN ABSOLUTE AUTO 0.06 K/mm3 (0.00-0.10); IMMATURE GRAN PERCENT AUTO 1 % (0-1); LYMPHOCYTES ABSOLUTE AUTO 0.93 K/mm3 (0.84-5.20); LYMPHOCYTES PERCENT AUTO 23 % (21-46); MONOCYTES ABSOLUTE AUTO 0.39 K/mm3 (0.16-1.47); MONOCYTES PERCENT AUTO 9 % (4-13); Mean Corpuscular HGB 27.1 pg (26.0-34.0); Mean Corpuscular HGB Conc 31.4 g/dL (31.5-36.5); Mean Corpuscular Volume 86 fL (80-100); NEUTROPHILS ABSOLUTE AUTO 2.76 K/mm3 (1.96-9.15); NEUTROPHILS PERCENT AUTO 67 % (41-73); NRBC ABSOLUTE 0.06 K/mm3 (0.00-0.02); NRBC Auto 1.4 /100 WBC (0.0-0.2); Platelet Count 186 K/mm3 (150-400); RDW Coefficient Variation 15.9 % (11.7-14.2); RDW Standard Deviation 48.4 fL (35.1-46.3); Red Blood Cell Count 3.61 M/mm3 (3.80-5.20); White Blood Cell Count 4.14 K/mm3 (4.00-11.30)
[2017-12-16 10:31] LABS: Alanine Aminotransfer (ALT/SGP 22 U/L (12-78); Albumin, Blood 3.4 g/dL (3.4-5.0); Albumin/Globulin Ratio 0.7 (0.8-1.8); Alk Phos 57 U/L (50-136); Anion Gap 8 mmol/L (6-16); Aspartate Aminotrans (AST/SGOT 25 U/L (12-37); Bilirubin, Total 0.3 mg/dL (0.1-1.0); Blood Urea Nitrogen 18 mg/dL (8-24); Bun/Creatinine Ratio 20.7 (12.0-20.0); CO2, Blood 26 mmol/L (21-32); Calcium, Blood 9.1 mg/dL (8.5-10.1); Chloride, Blood 97 mmol/L (98-108); Creatinine, Blood 0.87 mg/dL (0.40-1.00); Globulin, Blood 4.9 g/dL (2.2-4.0); Glomerular Filtration Rate >60 (60-); Glucose, Blood 128 mg/dL (70-99); Phosphorus, Blood 3.4 mg/dL (2.5-4.9); Potassium, Blood 4.7 mmol/L (3.5-5.5); Sodium, Blood 131 mmol/L (136-145); Total Protein, Blood 8.3 g/dL (6.4-8.2)
[2018-08-20] MEDS ORDERED: TRAZ50 PO (01:13)
[2018-08-20] MEDS ORDERED: FOLGARD TABLET1 EACH PO (01:14)
[2018-08-20] MEDS ORDERED: Bactrim Ds Tab1 EACH PO (01:15)
[2018-08-20] MEDS ORDERED: SACC250C PO (01:15)
[2018-08-20] MEDS ORDERED: ACYCLOVIR SOD PO (01:16)
[2018-08-20] MEDS ORDERED: VORI200 PO (01:17)
[2018-08-20] MEDS ORDERED: ONDA4ODT (01:18)
[2018-08-20] MEDS ORDERED: GABA100 PO (01:18)
[2018-08-20] MEDS ORDERED: ACET325 PO (01:19)
[2018-08-20] MEDS ORDERED: ENOX40I SC (01:20)
[2018-08-20] MEDS ORDERED: CITA10S PO (01:25)
[2018-08-20] MEDS ORDERED: LOSA25 PO (01:25)
[2018-08-20] MEDS ORDERED: MELA3 PO (01:26)
[2018-08-20] MEDS ORDERED: METF500C PO (01:26)
[2018-08-20] MEDS ORDERED: Omeprazole20 M1 PO (01:27)
[2018-08-20] MEDS ORDERED: POTCHL10ER PO (01:28)
[2018-08-20] MEDS ORDERED: PRED10 PO (01:29)
[2018-08-22] MEDS ORDERED: Zovirax200 MG PO (16:45)
[2018-08-22] MEDS ORDERED: CEFP200 PO (16:56)
== END 2017-12-16 09:55 | disposition home or self-care (01) ==
LOC: ATC 00:54
PROVIDERS: Internal Medicine Hematology & Oncology
DX: C92.00 Acute myeloblastic leukemia, not having achieved remission (principal); C92.40 Acute promyelocytic leukemia, not having achieved remission; E78.5 Hyperlipidemia, unspecified; C92.02 Acute myeloblastic leukemia, in relapse; Z79.899 Other long term (current) drug therapy
CPT/HCPCS: 36592; 80053; 83735; 84100; 85025

== ENCOUNTER 2017-12-21 00:36 | Day surgery (SDC) | payer OTHER ==
[~2017-12-21 00:36] MED LIST changes: +Cortisporin Ear10 M1 BOTHEARS; -Cortisporin Ear10 M1 RIGHTEAR
[2017-12-21 09:37] LABS: BASOPHILS PERCENT AUTO 0 % (0-2); EOSINOPHILS PERCENT AUTO 0 % (0-6); Hematocrit 31.6 % (33.0-51.0); Hemoglobin 10.2 g/dL (11.5-16.0); IMMATURE GRAN ABSOLUTE AUTO 0.02 K/mm3 (0.00-0.10); IMMATURE GRAN PERCENT AUTO 0 % (0-1); LYMPHOCYTES ABSOLUTE AUTO 1.04 K/mm3 (0.84-5.20); LYMPHOCYTES PERCENT AUTO 23 % (21-46); MONOCYTES ABSOLUTE AUTO 0.34 K/mm3 (0.16-1.47); MONOCYTES PERCENT AUTO 8 % (4-13); Mean Corpuscular HGB 27.7 pg (26.0-34.0); Mean Corpuscular HGB Conc 32.3 g/dL (31.5-36.5); Mean Corpuscular Volume 86 fL (80-100); Mean Platelet Volume 9.3 fL (9.1-12.4); NEUTROPHILS ABSOLUTE AUTO 3.05 K/mm3 (1.96-9.15); NEUTROPHILS PERCENT AUTO 69 % (41-73); Platelet Count 127 K/mm3 (150-400); RDW Coefficient Variation 16.2 % (11.7-14.2); RDW Standard Deviation 49.1 fL (35.1-46.3); Red Blood Cell Count 3.68 M/mm3 (3.80-5.20); White Blood Cell Count 4.45 K/mm3 (4.00-11.30)
[2017-12-21 09:55] LABS: Alanine Aminotransfer (ALT/SGP 24 U/L (12-78); Albumin, Blood 3.6 g/dL (3.4-5.0); Albumin/Globulin Ratio 0.7 (0.8-1.8); Alk Phos 62 U/L (50-136); Anion Gap 9 mmol/L (6-16); Aspartate Aminotrans (AST/SGOT 33 U/L (12-37); Bilirubin, Total 0.3 mg/dL (0.1-1.0); Blood Urea Nitrogen 17 mg/dL (8-24); Bun/Creatinine Ratio 20.6 (12.0-20.0); CO2, Blood 25 mmol/L (21-32); Calcium, Blood 9.6 mg/dL (8.5-10.1); Chloride, Blood 98 mmol/L (98-108); Creatinine, Blood 0.83 mg/dL (0.40-1.00); Glomerular Filtration Rate >60 (60-); Glucose, Blood 138 mg/dL (70-99); Magnesium, Blood 1.9 mg/dL (1.6-2.4); Phosphorus, Blood 3.3 mg/dL (2.5-4.9); Potassium, Blood 4.5 mmol/L (3.5-5.5); Sodium, Blood 132 mmol/L (136-145); Total Protein, Blood 8.6 g/dL (6.4-8.2)
== END 2017-12-21 09:34 | disposition home or self-care (01) ==
LOC: ATC 00:36
PROVIDERS: Internal Medicine Hematology & Oncology
DX: C92.40 Acute promyelocytic leukemia, not having achieved remission (principal)
CPT/HCPCS: 36592; 80053; 83735; 84100; 85025

== ENCOUNTER 2018-01-14 00:36 | Day surgery (SDC) | payer OTHER ==
[2018-01-14 10:00] LABS: BASOPHILS PERCENT AUTO 0 % (0-2); EOSINOPHILS PERCENT AUTO 0 % (0-6); Hematocrit 30.4 % (33.0-51.0); Hemoglobin 9.6 g/dL (11.5-16.0); IMMATURE GRAN ABSOLUTE AUTO 0.02 K/mm3 (0.00-0.10); IMMATURE GRAN PERCENT AUTO 1 % (0-1); LYMPHOCYTES ABSOLUTE AUTO 1.02 K/mm3 (0.84-5.20); LYMPHOCYTES PERCENT AUTO 28 % (21-46); MONOCYTES ABSOLUTE AUTO 0.36 K/mm3 (0.16-1.47); MONOCYTES PERCENT AUTO 10 % (4-13); Mean Corpuscular HGB 27.8 pg (26.0-34.0); Mean Corpuscular HGB Conc 31.6 g/dL (31.5-36.5); Mean Corpuscular Volume 88 fL (80-100); Mean Platelet Volume 9.3 fL (9.1-12.4); NEUTROPHILS ABSOLUTE AUTO 2.25 K/mm3 (1.96-9.15); NEUTROPHILS PERCENT AUTO 62 % (41-73); Platelet Count 270 K/mm3 (150-400); RDW Standard Deviation 54.6 fL (35.1-46.3); Red Blood Cell Count 3.45 M/mm3 (3.80-5.20); White Blood Cell Count 3.65 K/mm3 (4.00-11.30)
[2018-01-14 10:13] LABS: Alanine Aminotransfer (ALT/SGP 23 U/L (12-78); Albumin/Globulin Ratio 1.1 (0.8-1.8); Alk Phos 59 U/L (50-136); Anion Gap 7 mmol/L (6-16); Aspartate Aminotrans (AST/SGOT 35 U/L (12-37); Bilirubin, Total 0.2 mg/dL (0.1-1.0); Blood Urea Nitrogen 24 mg/dL (8-24); Bun/Creatinine Ratio 27.5 (12.0-20.0); CO2, Blood 24 mmol/L (21-32); Calcium, Blood 8.9 mg/dL (8.5-10.1); Chloride, Blood 104 mmol/L (98-108); Creatinine, Blood 0.87 mg/dL (0.40-1.00); Globulin, Blood 3.5 g/dL (2.2-4.0); Glomerular Filtration Rate >60 (60-); Glucose, Blood 158 mg/dL (70-99); Phosphorus, Blood 3.2 mg/dL (2.5-4.9); Potassium, Blood 4.2 mmol/L (3.5-5.5); Sodium, Blood 135 mmol/L (136-145); Total Protein, Blood 7.5 g/dL (6.4-8.2)
== END 2018-01-14 09:39 | disposition home or self-care (01) ==
LOC: ATC 00:36
PROVIDERS: Internal Medicine Hematology & Oncology
DX: C92.40 Acute promyelocytic leukemia, not having achieved remission (principal)
CPT/HCPCS: 80053; 83735; 84100; 85025; 99211; J1642

== ENCOUNTER → 2018-10-01 | Outpatient (CLI) | payer OTHER ==
[~2018-10-01] MED LIST changes: +3 DAY VAGINAL25 GM VAG; +ACET325 PO; +ACYC200 PO; +ACYCLOVIR SOD PO; +BENIFIBER PO; +CEFP200 PO; +CHOL10002 PO; +CITA10S PO; +Citalopram HBr10 MG PO; -Cortisporin Ear10 M1 BOTHEARS; +Cortisporin Ear10 M1 RIGHTEAR; +ENOX40I SC; +FOLGARD TABLET1 EACH PO; +GABA100 PO; +HYDCOR20 PO; +Hair, Skin & N1 EACH PO; +LINE600 PO; +LOSA25 PO; +METF500C PO; +MICO100S VAG; +Melatonin1 MG PO; +ONDA4ODT; +ONDA4ODT MM; +Omeprazole20 M1 PO; +POTCHL10ER PO; +PRED10 PO; +Pedi-Dri 100,0060 GM TOP; +Pyridium200 MG PO; +SACC250C PO; +SODBIC650 PO; +TRAZ50 PO; +VALA500 PO; +VITA TOP; -VITAMIN D32000 UNIT PO; +VORICONAZOLE50 MG PO; +[UNRECOGNIZED DRUG - OTHER] TOP
[2018-10-01 09:46] LABS: Albumin, Blood 2.9 g/dL (3.4-5.0); Anion Gap 11 mmol/L (6-16); Blood Urea Nitrogen 7 mg/dL (8-24); Bun/Creatinine Ratio 9.3 (12.0-20.0); CO2, Blood 22 mmol/L (21-32); Calcium, Blood 8.7 mg/dL (8.5-10.1); Chloride, Blood 98 mmol/L (98-108); Creatinine, Blood 0.75 mg/dL (0.40-1.00); Glomerular Filtration Rate >60 (60-); Glucose, Blood 73 mg/dL (70-99); Potassium, Blood 3.8 mmol/L (3.5-5.5); Sodium, Blood 131 mmol/L (136-145)
== END | disposition home or self-care (01) ==
LOC: LAB UVN 09:20 → EDSTATUS 10:16
PROVIDERS: Nurse Practitioner Family
DX: A41.89 Other specified sepsis (principal); C92 Myeloid leukemia; E11.9 Type 2 diabetes mellitus without complications; I10 Essential (primary) hypertension
CPT/HCPCS: 80069

== ENCOUNTER → 2018-10-20 | Outpatient (CLI) | payer OTHER ==
[2018-10-21 07:44] LABS: Source, Urine Catheter
[2018-10-21 09:53] LABS: Bilirubin, Urine Neg (Neg); Blood, Urine Neg (Neg); Glucose Qualitative, Urine Neg (Neg); Ketones, Urine Neg (Neg); Leukocyte Esterase, Urine 2+ (Neg); Nitrite, Urine Neg (Neg); Protein, Urine Neg (Neg); Urobilinogen, Urine NORM (Normal)
[2018-10-21 10:11] LABS: Appearance, Urine Clear (Clear); Color, Urine Yellow (P-Yellow)
[2018-10-21 10:21] LABS: Red Blood Cells, Urine Not Seen /hpf (0-2)
[2018-10-21 10:23] LABS: Bacteria Few /hpf; Squamous Epithelial Cells Few /hpf (Few)
== END | disposition home or self-care (01) ==
LOC: LAB UVN 07:42 → EDSTATUS 11:04
PROVIDERS: Family Medicine
DX: N39.0 Urinary tract infection, site not specified (principal)
CPT/HCPCS: 36415; 81001; 87077; 87086; 87186

== ENCOUNTER → 2018-10-23 | Outpatient (CLI) | payer OTHER | END | disposition home or self-care (01) | LOC: LAB UVN 07:20 → EDSTATUS 12:53 | DX: R19.7 Diarrhea, unspecified (principal); R65.21 Severe sepsis with septic shock | CPT/HCPCS: 87493 ==

== ENCOUNTER 2018-10-28 23:57 | Inpatient (IN) | payer OTHER ==
[~2018-10-28] VITALS: Ht 157.5 cm; Wt 65.5 kg
[~2018-10-28 23:57] MED LIST changes: -3 DAY VAGINAL25 GM VAG; -ACYC200 PO; -BENIFIBER PO; -Citalopram HBr10 MG PO; -HYDCOR20 PO; -Hair, Skin & N1 EACH PO; -LINE600 PO; -MICO100S VAG; -ONDA4ODT MM; -Pedi-Dri 100,0060 GM TOP; -Pyridium200 MG PO; -SODBIC650 PO; -VALA500 PO; -VITA TOP; -[UNRECOGNIZED DRUG - OTHER] TOP
[2018-10-29 00:29] LABS: Hematocrit 34.2 % (33.0-51.0); Hemoglobin 11.2 g/dL (11.5-16.0); Mean Corpuscular HGB Conc 32.7 g/dL (31.5-36.5); Mean Corpuscular Volume 92 fL (80-100); Platelet Count 503 K/mm3 (150-400); RDW Coefficient Variation 14.6 % (11.7-14.2); RDW Standard Deviation 49.8 fL (35.1-46.3); Red Blood Cell Count 3.73 M/mm3 (3.80-5.20); White Blood Cell Count 25.88 K/mm3 (4.00-11.30)
[2018-10-29 00:45] LABS: International Normalized Ratio 0.97; Prothrombin Time Results 10.3 Sec (9.7-11.5)
[2018-10-29 00:48] LABS: Albumin, Blood 2.9 g/dL (3.4-5.0); Albumin/Globulin Ratio 0.7 (0.8-1.8); BAND PERCENT MAN 14 % (0-8); BASOPHILS PERCENT MAN 0 % (0-2); Bilirubin, Total 0.2 mg/dL (0.1-1.0); Bun/Creatinine Ratio 8.8 (12.0-20.0); Calcium, Blood 8.6 mg/dL (8.5-10.1); Creatinine, Blood 1.6 mg/dL (0.40-1.00); EOSINOPHILS PERCENT MAN 0 % (0-6); Globulin, Blood 4.1 g/dL (2.2-4.0); LYMPHOCYTES ABSOLUTE MAN 2.84 K/mm3 (0.84-5.20); LYMPHOCYTES PERCENT MAN 11 % (21-46); MONOCYTES ABSOLUTE MAN 1.55 K/mm3 (0.16-1.47); MONOCYTES PERCENT MAN 6 % (4-13); NEUTROPHILS ABSOLUTE MAN 21.48 K/mm3 (1.96-9.15); Potassium, Blood 4.7 mmol/L (3.5-5.5); SEG NEUTROPHILS PERCENT MAN 69 % (41-73); TOTAL CELLS COUNTED 100
[2018-10-29 01:10] LABS: Source, Urine Catheter
[2018-10-29 01:12] LABS: Blood, Urine 4+ (Neg); Glucose Qualitative, Urine Neg (Neg); Ketones, Urine 1+ (Neg); Leukocyte Esterase, Urine 3+ (Neg); Nitrite, Urine Pos (Neg); Protein, Urine 3+ (Neg); Urobilinogen, Urine 1+ (Normal)
[2018-10-29 01:24] LABS: Appearance, Urine Cloudy (Clear); Bilirubin, Urine 3+ (Neg); Color, Urine Amber (P-Yellow)
[2018-10-29 01:25] LABS: Amorphous Light (0-Heavy); Bacteria Many /hpf; Red Blood Cells, Urine 0-2 /hpf (0-2); Squamous Epithelial Cells Rare /hpf (Few); Transitional Epithelial Cells Few /hpf (0-Rare); White Blood Cells, Urine TNTC /hpf (0-5)
[2018-10-29] MEDS ORDERED: BENIFIBER PO (03:21)
[2018-10-29] MEDS ORDERED: Hair, Skin & N1 EACH PO (03:32)
[2018-10-29] MEDS ORDERED: HYDCOR20 PO (03:32)
[2018-10-29 03:39] LABS: BASOPHILS ABSOLUTE AUTO 0.04 K/mm3 (0.00-0.23); BASOPHILS PERCENT AUTO 0 % (0-2); EOSINOPHILS ABSOLUTE AUTO 0.01 K/mm3 (0.00-0.68); EOSINOPHILS PERCENT AUTO 0 % (0-6); Hematocrit 28.5 % (33.0-51.0); Hemoglobin 9.3 g/dL (11.5-16.0); IMMATURE GRAN ABSOLUTE AUTO 0.08 K/mm3 (0.00-0.10); IMMATURE GRAN PERCENT AUTO 0 % (0-1); LYMPHOCYTES ABSOLUTE AUTO 2.62 K/mm3 (0.84-5.20); LYMPHOCYTES PERCENT AUTO 12 % (21-46); MONOCYTES PERCENT AUTO 9 % (4-13); Mean Corpuscular HGB 30.4 pg (26.0-34.0); Mean Corpuscular HGB Conc 32.6 g/dL (31.5-36.5); Mean Corpuscular Volume 93 fL (80-100); Mean Platelet Volume 8.9 fL (9.1-12.4); NEUTROPHILS ABSOLUTE AUTO 17.42 K/mm3 (1.96-9.15); NEUTROPHILS PERCENT AUTO 79 % (41-73); Platelet Count 413 K/mm3 (150-400); RDW Coefficient Variation 14.8 % (11.7-14.2); RDW Standard Deviation 50.5 fL (35.1-46.3); Red Blood Cell Count 3.06 M/mm3 (3.80-5.20); White Blood Cell Count 22.07 K/mm3 (4.00-11.30)
[2018-10-29 03:58] LABS: Albumin, Blood 2.3 g/dL (3.4-5.0); Albumin/Globulin Ratio 0.7 (0.8-1.8); Bilirubin, Total 0.1 mg/dL (0.1-1.0); Bun/Creatinine Ratio 9.7 (12.0-20.0); Calcium, Blood 7.9 mg/dL (8.5-10.1); Creatinine, Blood 1.34 mg/dL (0.40-1.00); Globulin, Blood 3.4 g/dL (2.2-4.0); Potassium, Blood 5.1 mmol/L (3.5-5.5); Total Protein, Blood 5.7 g/dL (6.4-8.2)
[2018-10-30 03:46] LABS: BASOPHILS ABSOLUTE AUTO 0.03 K/mm3 (0.00-0.23); BASOPHILS PERCENT AUTO 0 % (0-2); EOSINOPHILS ABSOLUTE AUTO 0.16 K/mm3 (0.00-0.68); EOSINOPHILS PERCENT AUTO 1 % (0-6); Hematocrit 28.5 % (33.0-51.0); IMMATURE GRAN ABSOLUTE AUTO 0.04 K/mm3 (0.00-0.10); IMMATURE GRAN PERCENT AUTO 0 % (0-1); LYMPHOCYTES ABSOLUTE AUTO 3.48 K/mm3 (0.84-5.20); LYMPHOCYTES PERCENT AUTO 26 % (21-46); MONOCYTES ABSOLUTE AUTO 1.57 K/mm3 (0.16-1.47); MONOCYTES PERCENT AUTO 12 % (4-13); Mean Corpuscular HGB 29.8 pg (26.0-34.0); Mean Corpuscular HGB Conc 31.6 g/dL (31.5-36.5); Mean Corpuscular Volume 94 fL (80-100); Mean Platelet Volume 8.7 fL (9.1-12.4); NEUTROPHILS ABSOLUTE AUTO 7.89 K/mm3 (1.96-9.15); NEUTROPHILS PERCENT AUTO 60 % (41-73); Platelet Count 396 K/mm3 (150-400); RDW Coefficient Variation 15.1 % (11.7-14.2); Red Blood Cell Count 3.02 M/mm3 (3.80-5.20); White Blood Cell Count 13.17 K/mm3 (4.00-11.30)
[2018-10-30 04:08] LABS: Magnesium, Blood 1.3 mg/dL (1.6-2.4)
[2018-10-30 04:11] LABS: Alanine Aminotransfer (ALT/SGP 10 U/L (12-78); Albumin, Blood 2.3 g/dL (3.4-5.0); Albumin/Globulin Ratio 0.7 (0.8-1.8); Alk Phos 51 U/L (50-136); Anion Gap 8 mmol/L (6-16); Aspartate Aminotrans (AST/SGOT 12 U/L (12-37); Bilirubin, Total 0.3 mg/dL (0.1-1.0); Blood Urea Nitrogen 7 mg/dL (8-24); Bun/Creatinine Ratio 11.3 (12.0-20.0); CO2, Blood 20 mmol/L (21-32); Calcium, Blood 7.7 mg/dL (8.5-10.1); Chloride, Blood 116 mmol/L (98-108); Creatinine, Blood 0.62 mg/dL (0.40-1.00); Globulin, Blood 3.1 g/dL (2.2-4.0); Glomerular Filtration Rate >60 (60-); Glucose, Blood 86 mg/dL (70-99); Potassium, Blood 3.5 mmol/L (3.5-5.5); Sodium, Blood 144 mmol/L (136-145); Total Protein, Blood 5.4 g/dL (6.4-8.2)
[2018-10-31 03:46] LABS: BASOPHILS ABSOLUTE AUTO 0.02 K/mm3 (0.00-0.23); BASOPHILS PERCENT AUTO 0 % (0-2); EOSINOPHILS ABSOLUTE AUTO 0.09 K/mm3 (0.00-0.68); EOSINOPHILS PERCENT AUTO 1 % (0-6); Hematocrit 27.6 % (33.0-51.0); Hemoglobin 8.6 g/dL (11.5-16.0); IMMATURE GRAN ABSOLUTE AUTO 0.03 K/mm3 (0.00-0.10); IMMATURE GRAN PERCENT AUTO 0 % (0-1); LYMPHOCYTES PERCENT AUTO 31 % (21-46); MONOCYTES ABSOLUTE AUTO 1.17 K/mm3 (0.16-1.47); MONOCYTES PERCENT AUTO 13 % (4-13); Mean Corpuscular HGB 29.6 pg (26.0-34.0); Mean Corpuscular HGB Conc 31.2 g/dL (31.5-36.5); Mean Corpuscular Volume 95 fL (80-100); Mean Platelet Volume 8.8 fL (9.1-12.4); NEUTROPHILS ABSOLUTE AUTO 4.86 K/mm3 (1.96-9.15); NEUTROPHILS PERCENT AUTO 54 % (41-73); Platelet Count 388 K/mm3 (150-400); RDW Coefficient Variation 15.2 % (11.7-14.2); RDW Standard Deviation 52.8 fL (35.1-46.3); Red Blood Cell Count 2.91 M/mm3 (3.80-5.20); White Blood Cell Count 8.97 K/mm3 (4.00-11.30)
[2018-10-31 04:10] LABS: Alanine Aminotransfer (ALT/SGP 8 U/L (12-78); Albumin, Blood 2.1 g/dL (3.4-5.0); Albumin/Globulin Ratio 0.7 (0.8-1.8); Alk Phos 51 U/L (50-136); Anion Gap 7 mmol/L (6-16); Aspartate Aminotrans (AST/SGOT 11 U/L (12-37); Bilirubin, Total 0.2 mg/dL (0.1-1.0); Blood Urea Nitrogen 3 mg/dL (8-24); Bun/Creatinine Ratio 6.2 (12.0-20.0); CO2, Blood 19 mmol/L (21-32); Calcium, Blood 7.7 mg/dL (8.5-10.1); Chloride, Blood 119 mmol/L (98-108); Creatinine, Blood 0.48 mg/dL (0.40-1.00); Globulin, Blood 3.1 g/dL (2.2-4.0); Glomerular Filtration Rate >60 (60-); Glucose, Blood 108 mg/dL (70-99); Magnesium, Blood 1.7 mg/dL (1.6-2.4); Potassium, Blood 3.6 mmol/L (3.5-5.5); Sodium, Blood 145 mmol/L (136-145); Total Protein, Blood 5.2 g/dL (6.4-8.2)
[2018-11-01 03:51] LABS: BASOPHILS ABSOLUTE AUTO 0.03 K/mm3 (0.00-0.23); BASOPHILS PERCENT AUTO 0 % (0-2); EOSINOPHILS PERCENT AUTO 2 % (0-6); Hematocrit 29.9 % (33.0-51.0); Hemoglobin 9.4 g/dL (11.5-16.0); IMMATURE GRAN ABSOLUTE AUTO 0.03 K/mm3 (0.00-0.10); IMMATURE GRAN PERCENT AUTO 0 % (0-1); LYMPHOCYTES ABSOLUTE AUTO 4.07 K/mm3 (0.84-5.20); LYMPHOCYTES PERCENT AUTO 37 % (21-46); MONOCYTES ABSOLUTE AUTO 1.68 K/mm3 (0.16-1.47); MONOCYTES PERCENT AUTO 15 % (4-13); Mean Corpuscular HGB Conc 31.4 g/dL (31.5-36.5); Mean Corpuscular Volume 96 fL (80-100); Mean Platelet Volume 9.2 fL (9.1-12.4); NEUTROPHILS ABSOLUTE AUTO 4.92 K/mm3 (1.96-9.15); NEUTROPHILS PERCENT AUTO 45 % (41-73); Platelet Count 421 K/mm3 (150-400); RDW Coefficient Variation 15.4 % (11.7-14.2); RDW Standard Deviation 54.1 fL (35.1-46.3); Red Blood Cell Count 3.13 M/mm3 (3.80-5.20); White Blood Cell Count 10.93 K/mm3 (4.00-11.30)
[2018-11-01 04:09] LABS: Alanine Aminotransfer (ALT/SGP 7 U/L (12-78); Albumin, Blood 2.2 g/dL (3.4-5.0); Albumin/Globulin Ratio 0.7 (0.8-1.8); Alk Phos 52 U/L (50-136); Anion Gap 8 mmol/L (6-16); Aspartate Aminotrans (AST/SGOT 13 U/L (12-37); Bilirubin, Total 0.1 mg/dL (0.1-1.0); Blood Urea Nitrogen 3 mg/dL (8-24); Bun/Creatinine Ratio 4.5 (12.0-20.0); CO2, Blood 19 mmol/L (21-32); Calcium, Blood 8.1 mg/dL (8.5-10.1); Chloride, Blood 119 mmol/L (98-108); Creatinine, Blood 0.66 mg/dL (0.40-1.00); Globulin, Blood 3.3 g/dL (2.2-4.0); Glomerular Filtration Rate >60 (60-); Glucose, Blood 77 mg/dL (70-99); Magnesium, Blood 1.5 mg/dL (1.6-2.4); Potassium, Blood 3.4 mmol/L (3.5-5.5); Sodium, Blood 146 mmol/L (136-145); Total Protein, Blood 5.5 g/dL (6.4-8.2)
[2018-11-01 14:18] LABS: Campylobacter Sp Not Detected (NOT DETECT); E. Coli O157 Not Detected (NOT DETECT); Enteroaggregative E. coli-EAEC Not Detected (NOT DETECT); Enteropathogenic E. coli-EPEC Not Detected (NOT DETECT); Enterotoxigenic E. coli-ETEC Not Detected (NOT DETECT); Plesiomonas Shigelloides Not Detected (NOT DETECT); Salmonella Sp Not Detected (NOT DETECT); Shiga Toxin-prod E. coli-STEC Not Detected (NOT DETECT); Vibrio Cholerae Not Detected (NOT DETECT); Vibrio Sp Not Detected (NOT DETECT); Yersinia Enterocolitica Not Detected (NOT DETECT)
[2018-11-01 14:19] LABS: Adenovirus F 40/41 Not Detected (NOT DETECT); Astrovirus Not Detected (NOT DETECT); Cryptosporidium Not Detected (NOT DETECT); Cyclospora Cayetanensis Not Detected (NOT DETECT); Entamoeba Histolytica Not Detected (NOT DETECT); Giardia Lamblia Not Detected (NOT DETECT); Norovirus GI/GII Not Detected (NOT DETECT); Rotavirus A Not Detected (NOT DETECT); Sapovirus Not Detected (NOT DETECT); Shigella/Enteroin E. coli-EIEC Not Detected (NOT DETECT)
[2018-11-02 04:17] LABS: BASOPHILS ABSOLUTE AUTO 0.03 K/mm3 (0.00-0.23); BASOPHILS PERCENT AUTO 0 % (0-2); EOSINOPHILS ABSOLUTE AUTO 0.22 K/mm3 (0.00-0.68); EOSINOPHILS PERCENT AUTO 2 % (0-6); Hematocrit 28.7 % (33.0-51.0); IMMATURE GRAN ABSOLUTE AUTO 0.05 K/mm3 (0.00-0.10); IMMATURE GRAN PERCENT AUTO 0 % (0-1); LYMPHOCYTES ABSOLUTE AUTO 4.02 K/mm3 (0.84-5.20); LYMPHOCYTES PERCENT AUTO 33 % (21-46); MONOCYTES PERCENT AUTO 16 % (4-13); Mean Corpuscular HGB 29.7 pg (26.0-34.0); Mean Corpuscular HGB Conc 31.4 g/dL (31.5-36.5); Mean Corpuscular Volume 95 fL (80-100); Mean Platelet Volume 9.4 fL (9.1-12.4); NEUTROPHILS ABSOLUTE AUTO 6.03 K/mm3 (1.96-9.15); NEUTROPHILS PERCENT AUTO 49 % (41-73); Platelet Count 421 K/mm3 (150-400); RDW Coefficient Variation 15.5 % (11.7-14.2); RDW Standard Deviation 53.9 fL (35.1-46.3); Red Blood Cell Count 3.03 M/mm3 (3.80-5.20); White Blood Cell Count 12.35 K/mm3 (4.00-11.30)
[2018-11-02 04:51] LABS: Alanine Aminotransfer (ALT/SGP 10 U/L (12-78); Albumin, Blood 2.1 g/dL (3.4-5.0); Albumin/Globulin Ratio 0.7 (0.8-1.8); Alk Phos 51 U/L (50-136); Anion Gap 8 mmol/L (6-16); Aspartate Aminotrans (AST/SGOT 12 U/L (12-37); Bilirubin, Total 0.2 mg/dL (0.1-1.0); Blood Urea Nitrogen 3 mg/dL (8-24); Bun/Creatinine Ratio 5.2 (12.0-20.0); CO2, Blood 19 mmol/L (21-32); Calcium, Blood 8.1 mg/dL (8.5-10.1); Chloride, Blood 118 mmol/L (98-108); Creatinine, Blood 0.58 mg/dL (0.40-1.00); Glomerular Filtration Rate >60 (60-); Glucose, Blood 77 mg/dL (70-99); Potassium, Blood 3.6 mmol/L (3.5-5.5); Sodium, Blood 145 mmol/L (136-145); Total Protein, Blood 5.1 g/dL (6.4-8.2)
[2018-11-03 03:41] LABS: BASOPHILS ABSOLUTE AUTO 0.04 K/mm3 (0.00-0.23); BASOPHILS PERCENT AUTO 0 % (0-2); EOSINOPHILS ABSOLUTE AUTO 0.22 K/mm3 (0.00-0.68); EOSINOPHILS PERCENT AUTO 2 % (0-6); Hematocrit 27.3 % (33.0-51.0); Hemoglobin 8.6 g/dL (11.5-16.0); IMMATURE GRAN PERCENT AUTO 1 % (0-1); LYMPHOCYTES ABSOLUTE AUTO 3.87 K/mm3 (0.84-5.20); LYMPHOCYTES PERCENT AUTO 29 % (21-46); MONOCYTES ABSOLUTE AUTO 1.95 K/mm3 (0.16-1.47); MONOCYTES PERCENT AUTO 15 % (4-13); Mean Corpuscular HGB 29.4 pg (26.0-34.0); Mean Corpuscular HGB Conc 31.5 g/dL (31.5-36.5); Mean Corpuscular Volume 93 fL (80-100); Mean Platelet Volume 9.5 fL (9.1-12.4); NEUTROPHILS ABSOLUTE AUTO 7.04 K/mm3 (1.96-9.15); NEUTROPHILS PERCENT AUTO 53 % (41-73); Platelet Count 399 K/mm3 (150-400); RDW Coefficient Variation 15.7 % (11.7-14.2); Red Blood Cell Count 2.93 M/mm3 (3.80-5.20); White Blood Cell Count 13.22 K/mm3 (4.00-11.30)
[2018-11-03 04:00] LABS: Albumin, Blood 2.1 g/dL (3.4-5.0); Anion Gap 9 mmol/L (6-16); Blood Urea Nitrogen 6 mg/dL (8-24); Bun/Creatinine Ratio 10.5 (12.0-20.0); CO2, Blood 20 mmol/L (21-32); Calcium, Blood 7.7 mg/dL (8.5-10.1); Chloride, Blood 119 mmol/L (98-108); Creatinine, Blood 0.57 mg/dL (0.40-1.00); Glomerular Filtration Rate >60 (60-); Glucose, Blood 81 mg/dL (70-99); Phosphorus, Blood 3.1 mg/dL (2.5-4.9); Potassium, Blood 3.3 mmol/L (3.5-5.5); Sodium, Blood 148 mmol/L (136-145)
[2018-11-03] MEDS ORDERED: CEFP200 PO (14:03)
[2018-11-03] MEDS ORDERED: ACYC200 PO (14:03)
[2018-11-03] MEDS ORDERED: MICO100S VAG (14:05)
[2018-11-03] MEDS ORDERED: Pyridium200 MG PO (14:06)
[2018-11-03] MEDS ORDERED: SODBIC650 PO (14:07)
[2018-11-03] MEDS ORDERED: Pedi-Dri 100,0060 GM TOP (14:07)
[2018-11-03] MEDS ORDERED: VITA TOP (14:09)
[2018-11-03] MEDS ORDERED: [UNRECOGNIZED DRUG - OTHER] TOP (14:09)
[2018-11-07 10:06] LABS: NOROVIRUS GI Negative (Negative); NOROVIRUS GII Negative (Negative)
== END 2018-11-03 15:00 | DRG 871 ==
LOC: ER 23:57 → ICUW 10-29 02:03
PROVIDERS: Emergency Medicine; Family Medicine; Internal Medicine; ADMIT Hospitalist
DX: A41.51 Sepsis due to Escherichia coli [E. coli] (principal); R65.21 Severe sepsis with septic shock; N17.9 Acute kidney failure, unspecified; N39.0 Urinary tract infection, site not specified; C92.01 Acute myeloblastic leukemia, in remission; E87.1 Hypo-osmolality and hyponatremia; E11.9 Type 2 diabetes mellitus without complications; I10 Essential (primary) hypertension; R19.7 Diarrhea, unspecified; F32.9 Major depressive disorder, single episode, unspecified; K21.9 Gastro-esophageal reflux disease without esophagitis; I95.9 Hypotension, unspecified; Z87.440 Personal history of urinary (tract) infections; Z79.899 Other long term (current) drug therapy
CPT/HCPCS: 36415; 51701; 51702; 71046; 80053; 80069; 81001; 83605; 83735; 85025; 85610; 85730; 87015; 87040; 87045; 87046; 87077; 87086; 87186; 87205; 87493; 87507; 87798; 87899; 93005; 93010; 96361-59; 96365-59; 97110; 97162; 97530; 99285-25; J0696; J1644; J3475; J3480; J7030; J7060; J7120

== ENCOUNTER 2018-11-04 17:41 | Inpatient (IN) | payer OTHER ==
[~2018-11-04] VITALS: Ht 167.6 cm; Wt 64.1 kg
[~2018-11-04 17:41] MED LIST changes: +ACYC200 PO; +BENIFIBER PO; +HYDCOR20 PO; +Hair, Skin & N1 EACH PO; +MICO100S VAG; +Pedi-Dri 100,0060 GM TOP; +Pyridium200 MG PO; +SODBIC650 PO; +VITA TOP; +[UNRECOGNIZED DRUG - OTHER] TOP
[2018-11-04 18:05] LABS: BASOPHILS ABSOLUTE AUTO 0.05 K/mm3 (0.00-0.23); BASOPHILS PERCENT AUTO 0 % (0-2); EOSINOPHILS ABSOLUTE AUTO 0.19 K/mm3 (0.00-0.68); EOSINOPHILS PERCENT AUTO 1 % (0-6); Hematocrit 30.9 % (33.0-51.0); Hemoglobin 9.7 g/dL (11.5-16.0); IMMATURE GRAN ABSOLUTE AUTO 0.11 K/mm3 (0.00-0.10); IMMATURE GRAN PERCENT AUTO 1 % (0-1); LYMPHOCYTES ABSOLUTE AUTO 4.49 K/mm3 (0.84-5.20); LYMPHOCYTES PERCENT AUTO 30 % (21-46); MONOCYTES ABSOLUTE AUTO 1.74 K/mm3 (0.16-1.47); MONOCYTES PERCENT AUTO 12 % (4-13); Mean Corpuscular HGB 29.9 pg (26.0-34.0); Mean Corpuscular HGB Conc 31.4 g/dL (31.5-36.5); Mean Corpuscular Volume 95 fL (80-100); NEUTROPHILS ABSOLUTE AUTO 8.35 K/mm3 (1.96-9.15); NEUTROPHILS PERCENT AUTO 56 % (41-73); Platelet Count 421 K/mm3 (150-400); RDW Coefficient Variation 16.2 % (11.7-14.2); RDW Standard Deviation 55.7 fL (35.1-46.3); Red Blood Cell Count 3.24 M/mm3 (3.80-5.20); White Blood Cell Count 14.93 K/mm3 (4.00-11.30)
[2018-11-04 18:09] LABS: Source, Urine Clean Catch
[2018-11-04 18:18] LABS: Bilirubin, Urine Neg (Neg); Blood, Urine 1+ (Neg); Glucose Qualitative, Urine Neg (Neg); Ketones, Urine Neg (Neg); Leukocyte Esterase, Urine 3+ (Neg); Nitrite, Urine Neg (Neg); Protein, Urine Neg (Neg); Urobilinogen, Urine NORM (Normal)
[2018-11-04 18:24] LABS: Alanine Aminotransfer (ALT/SGP 11 U/L (12-78); Albumin, Blood 2.5 g/dL (3.4-5.0); Albumin/Globulin Ratio 0.7 (0.8-1.8); Alk Phos 54 U/L (50-136); Anion Gap 8 mmol/L (6-16); Aspartate Aminotrans (AST/SGOT 15 U/L (12-37); Bilirubin, Total 0.2 mg/dL (0.1-1.0); Blood Urea Nitrogen 4 mg/dL (8-24); Bun/Creatinine Ratio 6.2 (12.0-20.0); CO2, Blood 23 mmol/L (21-32); Calcium, Blood 7.8 mg/dL (8.5-10.1); Chloride, Blood 110 mmol/L (98-108); Creatinine, Blood 0.65 mg/dL (0.40-1.00); Globulin, Blood 3.7 g/dL (2.2-4.0); Glomerular Filtration Rate >60 (60-); Glucose, Blood 133 mg/dL (70-99); Potassium, Blood 3.2 mmol/L (3.5-5.5); Sodium, Blood 141 mmol/L (136-145); Total Protein, Blood 6.2 g/dL (6.4-8.2)
[2018-11-04 18:50] LABS: Appearance, Urine Clear (Clear); Color, Urine Yellow (P-Yellow)
[2018-11-04 18:51] LABS: Squamous Epithelial Cells Few /hpf (Few); Transitional Epithelial Cells Few /hpf (0-Rare); White Blood Cells, Urine TNTC /hpf (0-5)
[2018-11-04 18:52] LABS: Bacteria Few /hpf; Renal Epithelial Rare /hpf (0-Rare)
[2018-11-05 04:34] LABS: Hematocrit 27.2 % (33.0-51.0); Hemoglobin 8.6 g/dL (11.5-16.0); Mean Corpuscular HGB 29.8 pg (26.0-34.0); Mean Corpuscular HGB Conc 31.6 g/dL (31.5-36.5); Mean Corpuscular Volume 94 fL (80-100); Mean Platelet Volume 9.2 fL (9.1-12.4); Platelet Count 381 K/mm3 (150-400); RDW Coefficient Variation 16.1 % (11.7-14.2); RDW Standard Deviation 54.6 fL (35.1-46.3); Red Blood Cell Count 2.89 M/mm3 (3.80-5.20)
[2018-11-05 04:35] LABS: Alanine Aminotransfer (ALT/SGP 13 U/L (12-78); Albumin, Blood 2.2 g/dL (3.4-5.0); Albumin/Globulin Ratio 0.6 (0.8-1.8); Alk Phos 49 U/L (50-136); Anion Gap 11 mmol/L (6-16); Aspartate Aminotrans (AST/SGOT 15 U/L (12-37); Bilirubin, Total 0.1 mg/dL (0.1-1.0); Blood Urea Nitrogen 5 mg/dL (8-24); Bun/Creatinine Ratio 8.2 (12.0-20.0); CO2, Blood 23 mmol/L (21-32); Calcium, Blood 7.7 mg/dL (8.5-10.1); Chloride, Blood 112 mmol/L (98-108); Creatinine, Blood 0.61 mg/dL (0.40-1.00); Globulin, Blood 3.4 g/dL (2.2-4.0); Glomerular Filtration Rate >60 (60-); Glucose, Blood 83 mg/dL (70-99); Potassium, Blood 3.7 mmol/L (3.5-5.5); Sodium, Blood 146 mmol/L (136-145); Total Protein, Blood 5.6 g/dL (6.4-8.2)
--- NOTE | 2018-11-05 06:01 | NUR ---
SHIFT SUMMARY PT ADMITTED TO PCU APPROX 2200 AN ER ADMIT. SHE SPEAKS MALAWIAN, BUT HAS BEEN ABLE TO COMMUNICATE EFFECIVELY IN [place] WITH STAFF. PT DID HAVE SOME ANXIETY ON ARRIVAL. SHE ADMITTED THAT SHE WAS AFRAID OF BEING BACK IN THE HOSPITAL. PT GOT A NEW IV WHICH CAUSED HER SOME DISCOMFORT, BUT TOLERATED THE POWERGLIDE ONCE IT WAS FINALIZED. PT DENIED ANY UNMET NEEDS, SHE DID REQUEST THAT SHE NOT GET POKED AGAIN. POWERGLIDE DRAWS WELL. PT VITALS HAVE BEEN STABLE T/O SHIFT. SHE HAS HER BED IN THE LOWEST POSITION, CALL LIGHT IN REACH AND 2X SIDE RAILS IN PLACE. PT WILL CONTINUE TO BE MONITORED UNTIL HANDOFF TO DAYSHIFT RN.
[2018-11-05 12:28] LABS: Source, Urine Catheter
[2018-11-05 12:39] LABS: Appearance, Urine Clear (Clear); Bilirubin, Urine Neg (Neg); Blood, Urine Neg (Neg); Color, Urine Yellow (P-Yellow); Glucose Qualitative, Urine Neg (Neg); Ketones, Urine Neg (Neg); Leukocyte Esterase, Urine 2+ (Neg); Nitrite, Urine Neg (Neg); Protein, Urine Neg (Neg); Urobilinogen, Urine NORM (Normal)
[2018-11-05 12:56] LABS: Bacteria Rare /hpf; Red Blood Cells, Urine 0-2 /hpf (0-2); Squamous Epithelial Cells Rare /hpf (Few); White Blood Cells, Urine 25-50 /hpf (0-5)
--- NOTE | 2018-11-05 13:33 | NUR ---
ECHOCARDIOGRAM COMPLETE
--- NOTE | 2018-11-05 16:43 | NUR ---
SHIFT SUMMARY PT RESTING IN BED THROUGHOUT THE DAY. VSS. ALERT AND ORIENTED TO SELF. LUNG SOUNDS CLEAR, NSR RATE 80s ON TELEMETRY. HAD A FEVER THIS AFTERNOON, MEDICATED WITH TYLENOL. PT INCONTINENT OF URINE AND STOOL. PT HAD MULTIPLE LOOSE BMs TODAY, GI PANEL SENT PER ORDERS. WILL CONTINUE TO MONITOR.
--- NOTE | 2018-11-05 17:30 | NUR ---
PT C/O ITCHING AFTER GETTING ANTIBIOTICS. DR. AYERS NOTIFIED OF ITCHING, INSTRUCTED TO GIVE BENADRYL AND WATCH FOR OTHER ALLERGIC REACTIONS. WILL CONTINUE TO MONITOR.
[2018-11-05 17:43] LABS: Adenovirus F 40/41 Not Detected (NOT DETECT); Astrovirus Not Detected (NOT DETECT); Campylobacter Sp Not Detected (NOT DETECT); Cryptosporidium Not Detected (NOT DETECT); Cyclospora Cayetanensis Not Detected (NOT DETECT); E. Coli O157 Not Detected (NOT DETECT); Entamoeba Histolytica Not Detected (NOT DETECT); Enteroaggregative E. coli-EAEC Not Detected (NOT DETECT); Enteropathogenic E. coli-EPEC Not Detected (NOT DETECT); Enterotoxigenic E. coli-ETEC Not Detected (NOT DETECT); Giardia Lamblia Not Detected (NOT DETECT); Norovirus GI/GII Not Detected (NOT DETECT); Plesiomonas Shigelloides Not Detected (NOT DETECT); Rotavirus A Not Detected (NOT DETECT); Salmonella Sp Not Detected (NOT DETECT); Sapovirus Not Detected (NOT DETECT); Shiga Toxin-prod E. coli-STEC Not Detected (NOT DETECT); Shigella/Enteroin E. coli-EIEC Not Detected (NOT DETECT); Vibrio Cholerae Not Detected (NOT DETECT); Vibrio Sp Not Detected (NOT DETECT); Yersinia Enterocolitica Not Detected (NOT DETECT)
[2018-11-05 21:41] LABS: Adenovirus Not Detected (NOT DETECT); Bordetella pertussis Not Detected (NOT DETECT); Chlamydophila pneumoniae Not Detected (NOT DETECT); Coronavirus 229E Not Detected (NOT DETECT); Coronavirus HKU1 Not Detected (NOT DETECT); Coronavirus NL63 Not Detected (NOT DETECT); Coronavirus OC43 Not Detected (NOT DETECT); Human Metapneumovirus Not Detected (NOT DETECT); Human Rhinovirus/Enterovirus Detected (NOT DETECT); Influenza A Not Detected (NOT DETECT); Influenza A/2009-H1 Not Detected (NOT DETECT); Influenza A/H1 Not Detected (NOT DETECT); Influenza A/H3 Not Detected (NOT DETECT); Influenza B Not Detected (NOT DETECT); Mycoplasma pneumoniae Not Detected (NOT DETECT); Parainfluenza Virus 1 Not Detected (NOT DETECT); Parainfluenza Virus 2 Not Detected (NOT DETECT); Parainfluenza Virus 3 Not Detected (NOT DETECT); Parainfluenza Virus 4 Not Detected (NOT DETECT); Respiratory Syncytial Virus Not Detected (NOT DETECT)
[2018-11-06 04:02] LABS: BASOPHILS ABSOLUTE AUTO 0.03 K/mm3 (0.00-0.23); BASOPHILS PERCENT AUTO 0 % (0-2); EOSINOPHILS ABSOLUTE AUTO 0.23 K/mm3 (0.00-0.68); EOSINOPHILS PERCENT AUTO 3 % (0-6); Hematocrit 27.9 % (33.0-51.0); Hemoglobin 8.8 g/dL (11.5-16.0); IMMATURE GRAN ABSOLUTE AUTO 0.03 K/mm3 (0.00-0.10); IMMATURE GRAN PERCENT AUTO 0 % (0-1); LYMPHOCYTES PERCENT AUTO 38 % (21-46); MONOCYTES ABSOLUTE AUTO 1.49 K/mm3 (0.16-1.47); MONOCYTES PERCENT AUTO 18 % (4-13); Mean Corpuscular HGB 29.2 pg (26.0-34.0); Mean Corpuscular HGB Conc 31.5 g/dL (31.5-36.5); Mean Corpuscular Volume 93 fL (80-100); Mean Platelet Volume 9.4 fL (9.1-12.4); NEUTROPHILS ABSOLUTE AUTO 3.43 K/mm3 (1.96-9.15); NEUTROPHILS PERCENT AUTO 41 % (41-73); Platelet Count 372 K/mm3 (150-400); RDW Coefficient Variation 16.1 % (11.7-14.2); RDW Standard Deviation 54.2 fL (35.1-46.3); Red Blood Cell Count 3.01 M/mm3 (3.80-5.20); White Blood Cell Count 8.41 K/mm3 (4.00-11.30)
[2018-11-06 04:23] LABS: Anion Gap 10 mmol/L (6-16); Blood Urea Nitrogen 6 mg/dL (8-24); Bun/Creatinine Ratio 9.7 (12.0-20.0); CO2, Blood 24 mmol/L (21-32); Chloride, Blood 112 mmol/L (98-108); Creatinine, Blood 0.62 mg/dL (0.40-1.00); Glomerular Filtration Rate >60 (60-); Glucose, Blood 97 mg/dL (70-99); Potassium, Blood 3.5 mmol/L (3.5-5.5); Sodium, Blood 146 mmol/L (136-145)
--- NOTE | 2018-11-06 05:51 | NUR ---
SHIFT SUMMARY PATIENT ALERT AND ORIENTED X 3 THROUGHOUT SHIFT. PT DENIED ANY COMPLAINTS OF PAIN OR DISCOMFORT. SHE SLEPT WELL DURING THE NIGHT, AND WOKE EASILY FOR VITALS AND ASSESSMENTS. PT REMAINED INCONTINENT OF BOWEL AND BLADDER, DID HAVE SOME DIARRHEA AND WAS PROVIDED ORDERED MEDS, POST DOCTOR CALL. PT HAS NOT HAD ANY FURTHER BOUTS OF LIQUID STOOL. PT VITALS HAVE BEEN STABLE T/O SHIFT. SHE HAS BEEN PLEASANT AND COOPERATIVE WITH STAFF. PT ABLE TO NOTIFY STAFF OF NEEDS AND USED CALL LIGHT APPROPRIATELY. NO ACUTE CHANGES OBSERVED TO PT DURING THE NIGHT. PT HAS 2X SIDE RAILS IN PLACE, BED IN LOWEST POSITION, CALL LIGHT WITHIN REACH. PT WILL CONTINUE TO BE MONITORED UNTIL HANDOFF TO DAYSHIFT RN.
--- NOTE | 2018-11-06 12:51 | NUR ---
TRANSFER NOTE PT STABLE FOR TRANSFER. REPORT CALLED TO JOSEE CAPPS ON MEDICAL FLOOR. PT TRANSFERED VIA BED WITH BELONGINGS TO MEDICAL FLOOR.
--- NOTE | 2018-11-06 18:45 | NUR ---
SHIFT SUMMARY PT AXO, PLEASANT AND COOPERATIVE WITH CARE THOUGH FORGETFUL. REPORT RECIEVED FROM ADAN AT 1245 AND PT ARRIVED TO ROOM SHORTLY AFTER. PT REQUESTED A DOSE OF IMMODIUM DUE TO EPISODE OF DIARRHEA INCONTINENCE. IV PATENT AND SALINE LOCKED. BED IN LOW POSITION, CALL LIGHT WITHIN REACH. PT DENIES PAIN. PT STATES SHE HAS ABDOMINAL PAIN AFTER DRINKING MILK.
--- NOTE | 2018-11-07 04:32 | NUR ---
SUMMARY: A/OX3, SPECIFIES NEEDS AND COOPERATIVE W/CARE BUT FORGETFUL AT TIMES SO BED ALARM ON. IV ABX RECIEVED. PT INCONTINENT OF VOIDS W/ATTENDS CHANGED PRN AND BARRIER CREAM APPLIED BUT NO BM THIS SHIFT AFTER IMMODIUM ON DAY SHIFT. TURN SCHEDULE MAINTAINED. POWERGLIDE IS TEMPERMENTAL AND WOULD FLUSH BUT WOULDN'T INFUSE OR DRAW BLOOD THIS SHIFT. L.AC IV SITE IS PATENT/SL. PT DENIED NEEDING ANY PRN MEDS. NO ACUTE CHANGES, VSS/AFEBRILE. CX IS PENDING. WILL MONITOR AND REPORT TO DAY RN.
[2018-11-07 05:29] LABS: Hematocrit 29.2 % (33.0-51.0); Hemoglobin 8.9 g/dL (11.5-16.0); Mean Corpuscular HGB 29.2 pg (26.0-34.0); Mean Corpuscular HGB Conc 30.5 g/dL (31.5-36.5); Mean Platelet Volume 9.6 fL (9.1-12.4); Platelet Count 369 K/mm3 (150-400); RDW Coefficient Variation 16.3 % (11.7-14.2); RDW Standard Deviation 57.3 fL (35.1-46.3); Red Blood Cell Count 3.05 M/mm3 (3.80-5.20)
[2018-11-07 05:47] LABS: Mean Corpuscular Volume 96 fL (80-100)
[2018-11-07 05:51] LABS: Albumin, Blood 2.1 g/dL (3.4-5.0); Anion Gap 9 mmol/L (6-16); Blood Urea Nitrogen 6 mg/dL (8-24); Bun/Creatinine Ratio 10.3 (12.0-20.0); CO2, Blood 25 mmol/L (21-32); Chloride, Blood 114 mmol/L (98-108); Creatinine, Blood 0.59 mg/dL (0.40-1.00); Glomerular Filtration Rate >60 (60-); Glucose, Blood 82 mg/dL (70-99); Phosphorus, Blood 3.5 mg/dL (2.5-4.9); Potassium, Blood 3.4 mmol/L (3.5-5.5); Sodium, Blood 148 mmol/L (136-145)
--- NOTE | 2018-11-07 18:29 | NUR ---
SHIFT SUMMARY NO ACUTE CHANGES THIS SHIFT. PT HAS HAD NO COMPLAINTS OF PAIN THIS SHIFT. IV ANTIBIOTICS GIVEN PER EMAR. WAITING FOR DR. SEBASTIAN TO SEE PT. PT INCONTINENT OF URINE AND PT VOIDING WELL. PT HAS NOT HAD MUCH OF AN APPETITE. NO DISTRESS. WILL CONTINUE TO MONITOR AND REPORT TO ONCOMING RN. CALL LIGHT IN REACH. BED ALARM ON FOR SAFETY.
[2018-11-08 05:28] LABS: BASOPHILS ABSOLUTE AUTO 0.04 K/mm3 (0.00-0.23); BASOPHILS PERCENT AUTO 0 % (0-2); EOSINOPHILS ABSOLUTE AUTO 0.17 K/mm3 (0.00-0.68); EOSINOPHILS PERCENT AUTO 2 % (0-6); Hematocrit 29.5 % (33.0-51.0); Hemoglobin 9.2 g/dL (11.5-16.0); IMMATURE GRAN ABSOLUTE AUTO 0.02 K/mm3 (0.00-0.10); IMMATURE GRAN PERCENT AUTO 0 % (0-1); LYMPHOCYTES ABSOLUTE AUTO 3.49 K/mm3 (0.84-5.20); LYMPHOCYTES PERCENT AUTO 38 % (21-46); MONOCYTES ABSOLUTE AUTO 1.23 K/mm3 (0.16-1.47); MONOCYTES PERCENT AUTO 14 % (4-13); Mean Corpuscular HGB Conc 31.2 g/dL (31.5-36.5); Mean Corpuscular Volume 96 fL (80-100); Mean Platelet Volume 9.2 fL (9.1-12.4); NEUTROPHILS ABSOLUTE AUTO 4.15 K/mm3 (1.96-9.15); NEUTROPHILS PERCENT AUTO 46 % (41-73); Platelet Count 355 K/mm3 (150-400); RDW Coefficient Variation 15.9 % (11.7-14.2); RDW Standard Deviation 55.8 fL (35.1-46.3); Red Blood Cell Count 3.07 M/mm3 (3.80-5.20)
--- NOTE | 2018-11-08 05:32 | NUR ---
Rn summary: Patient is alert and oriented. Pt was very flat and withdrawn at the beginning of shift, but was more interactive after napping. Pt blood sugar was 79, snack given. Pt is incontinent of urine and wears attends. Pt receiving IV antibiotics as ordered. Pt has rested well. She has had no c/o discomfort this shift. Pt has had low grade temp of 99.5 x2 this shift. Continue to await Dr. Cole consult. Has seemed to rest well this shift. Call light in reach.
[2018-11-08 06:03] LABS: Albumin, Blood 2.2 g/dL (3.4-5.0); Anion Gap 7 mmol/L (6-16); Blood Urea Nitrogen 6 mg/dL (8-24); Bun/Creatinine Ratio 8.1 (12.0-20.0); CO2, Blood 27 mmol/L (21-32); Calcium, Blood 7.9 mg/dL (8.5-10.1); Chloride, Blood 111 mmol/L (98-108); Creatinine, Blood 0.74 mg/dL (0.40-1.00); Glomerular Filtration Rate >60 (60-); Glucose, Blood 82 mg/dL (70-99); Magnesium, Blood 1.5 mg/dL (1.6-2.4); Phosphorus, Blood 3.2 mg/dL (2.5-4.9); Potassium, Blood 3.4 mmol/L (3.5-5.5); Sodium, Blood 145 mmol/L (136-145)
[2018-11-08] MEDS ORDERED: Citalopram HBr10 MG PO (11:22)
[2018-11-08] MEDS ORDERED: LINE600 PO (11:30)
[2018-11-08] MEDS ORDERED: VALA500 PO (14:53)
[2018-11-08] MEDS ORDERED: ONDA4ODT MM (15:10)
[2018-11-08] MEDS ORDERED: 3 DAY VAGINAL25 GM VAG (15:20)
[2018-11-08] MEDS ORDERED: Pedi-Dri 100,0060 GM TOP (15:21)
[2018-11-08] MEDS ORDERED: SODBIC650 PO (15:21)
--- NOTE | 2018-11-08 16:36 | NUR ---
D/C AT 1400 PIV REMOVED X2; PATIENT STOOD AND PIVOTED TO W/C WITH JOURNEYMAN PRESS OPERATOR. NO O2. I CALLED [facility] TO GIVE REPORT HOWEVER I WAS PLACED ON HOLD, 3 DIFFERENT PEOPLE PICKED UP AND STATED THEY NEEDED TO TRANSFER ME TO ANOTHER LOCATION AND PLACED ME ON HOLD AGAIN. AFTER 20 MINUTES I HAD TO HANG UP D/T EMERGENCY PULL CORD IN ANOTHER PATIENT ROOM THAT WAS ALRMING FOR OVER 5 MINUTES. REPORT WOULD HAVE STATED THAT PATIENT STAUS UNCHANGED. A NEW ANTIBIOTIC WAS STARTED FOR 14 DAYS D/T VRE
== END 2018-11-08 14:34 | DRG 871 ==
LOC: ER 17:41 → MEDS 20:00 → PCU 20:00 → MEDS 11-05 03:23 → PCU 11-06 09:30 → MEDS 11-06 13:25 → ENPENDDIS 11-08 10:00 → MEDS 11-08 14:34
PROVIDERS: Emergency Medicine; Family Medicine; Internal Medicine; ADMIT Internal Medicine
DX: A41.9 Sepsis, unspecified organism (principal); J18.9 Pneumonia, unspecified organism; E87.0 Hyperosmolality and hypernatremia; J90 Pleural effusion, not elsewhere classified; C92.00 Acute myeloblastic leukemia, not having achieved remission; B95.2 Enterococcus as the cause of diseases classified elsewhere; E87.6 Hypokalemia; E11.9 Type 2 diabetes mellitus without complications; E78.5 Hyperlipidemia, unspecified; K21.9 Gastro-esophageal reflux disease without esophagitis; E78.00 Pure hypercholesterolemia, unspecified; Z92.21 Personal history of antineoplastic chemotherapy
CPT/HCPCS: 36415; 71046; 80048; 80053; 80069; 81001; 82947; 83605; 83735; 83880; 85025; 85027; 87040; 87086; 87486; 87507; 87581; 87633; 87798; 93306; 96361; 96365; 96366; 96367; 99285-25; C1751; J1650; J1956; J2185; J2543; J3370; J3480; J7030; J7040; J7050; P9612; Q0163

== ENCOUNTER → 2018-12-09 | Outpatient (CLI) | payer OTHER ==
[~2018-12-09] MED LIST changes: +3 DAY VAGINAL25 GM VAG; +Citalopram HBr10 MG PO; +LINE600 PO; +ONDA4ODT MM; +VALA500 PO
[2018-12-09 14:20] LABS: Bilirubin, Urine Neg (Neg); Blood, Urine Neg (Neg); Glucose Qualitative, Urine Neg (Neg); Ketones, Urine Neg (Neg); Leukocyte Esterase, Urine Neg (Neg); Nitrite, Urine Neg (Neg); Protein, Urine Neg (Neg); Specific Gravity, Urine 1.015 (1.003-1.022); Urobilinogen, Urine NORM (Normal)
[2018-12-09 14:32] LABS: Appearance, Urine Clear (Clear); Color, Urine Pale Yellow (P-Yellow)
== END | disposition home or self-care (01) ==
LOC: EDSTATUS 08:23 → LAB UVN 14:05
DX: N39.0 Urinary tract infection, site not specified (principal)
CPT/HCPCS: 81003; 87086

== ENCOUNTER 2019-01-20 01:36 | Emergency (ER) | payer OTHER ==
[~2019-01-20] VITALS: Ht 152.4 cm; Wt 61.2 kg
[2019-01-20 02:15] LABS: BASOPHILS ABSOLUTE AUTO 0.03 K/mm3 (0.00-0.23); BASOPHILS PERCENT AUTO 0 % (0-2); EOSINOPHILS PERCENT AUTO 1 % (0-6); Hematocrit 33.4 % (33.0-51.0); Hemoglobin 10.4 g/dL (11.5-16.0); IMMATURE GRAN ABSOLUTE AUTO 0.05 K/mm3 (0.00-0.10); IMMATURE GRAN PERCENT AUTO 0 % (0-1); LYMPHOCYTES ABSOLUTE AUTO 4.38 K/mm3 (0.84-5.20); LYMPHOCYTES PERCENT AUTO 26 % (21-46); MONOCYTES ABSOLUTE AUTO 1.77 K/mm3 (0.16-1.47); MONOCYTES PERCENT AUTO 10 % (4-13); Mean Corpuscular HGB 29.9 pg (26.0-34.0); Mean Corpuscular HGB Conc 31.1 g/dL (31.5-36.5); Mean Corpuscular Volume 96 fL (80-100); Mean Platelet Volume 9.4 fL (9.1-12.4); NEUTROPHILS ABSOLUTE AUTO 10.57 K/mm3 (1.96-9.15); NEUTROPHILS PERCENT AUTO 62 % (41-73); Platelet Count 325 K/mm3 (150-400); RDW Coefficient Variation 16.9 % (11.7-14.2); RDW Standard Deviation 59.6 fL (35.1-46.3); Red Blood Cell Count 3.48 M/mm3 (3.80-5.20)
[2019-01-20 02:35] LABS: Alanine Aminotransfer (ALT/SGP 15 U/L (12-78); Albumin, Blood 3.2 g/dL (3.4-5.0); Albumin/Globulin Ratio 0.8 (0.8-1.8); Alk Phos 45 U/L (50-136); Anion Gap 7 mmol/L (6-16); Aspartate Aminotrans (AST/SGOT 13 U/L (12-37); Bilirubin, Total 0.3 mg/dL (0.1-1.0); Blood Urea Nitrogen 27 mg/dL (8-24); Bun/Creatinine Ratio 24.8 (12.0-20.0); CO2, Blood 22 mmol/L (21-32); Chloride, Blood 111 mmol/L (98-108); Creatinine, Blood 1.09 mg/dL (0.40-1.00); Glomerular Filtration Rate 53 (60-); Glucose, Blood 93 mg/dL (70-99); Sodium, Blood 140 mmol/L (136-145); Total Protein, Blood 7.2 g/dL (6.4-8.2); Troponin I <0.015 ng/mL (0.000-0.040)
[2019-01-20 04:02] LABS: Source, Urine Clean Catch
[2019-01-20 04:05] LABS: Bilirubin, Urine Neg (Neg); Blood, Urine 1+ (Neg); Glucose Qualitative, Urine Neg (Neg); Ketones, Urine Neg (Neg); Leukocyte Esterase, Urine 1+ (Neg); Nitrite, Urine Neg (Neg); Protein, Urine Neg (Neg); Urobilinogen, Urine NORM (Normal)
[2019-01-20 04:09] LABS: Appearance, Urine Clear (Clear); Color, Urine Yellow (P-Yellow)
[2019-01-20 04:25] LABS: Bacteria Few /hpf; Red Blood Cells, Urine 0-2 /hpf (0-2); Squamous Epithelial Cells Few /hpf (Few)
[2019-01-20] MEDS ORDERED: CEPH500 PO (04:41)
== END 2019-01-20 06:03 | disposition home or self-care (01) ==
LOC: ER 01:36
PROVIDERS: Emergency Medicine; Physician Assistant
DX: N39.0 Urinary tract infection, site not specified (principal); I95.9 Hypotension, unspecified; Z88.8 Allergy status to other drugs, medicaments and biological substances; Z79.899 Other long term (current) drug therapy; E11.9 Type 2 diabetes mellitus without complications
CPT/HCPCS: 80053; 81001; 84484; 85025; 87077; 87086; 87186; 93005; 93010; 96360; 99285-25; J7030; P9612

== ENCOUNTER 2019-04-26 19:06 | Emergency (ER) | payer OTHER ==
[~2019-04-26] VITALS: Ht 162.6 cm; Wt 61.2 kg
[2019-04-26 19:34] LABS: Hematocrit 35.1 % (33.0-51.0); Hemoglobin 11.2 g/dL (11.5-16.0); Mean Corpuscular HGB 28.9 pg (26.0-34.0); Mean Corpuscular HGB Conc 31.9 g/dL (31.5-36.5); Mean Corpuscular Volume 91 fL (80-100); Mean Platelet Volume 9.7 fL (9.1-12.4); Platelet Count 344 K/mm3 (150-400); RDW Coefficient Variation 14.4 % (11.7-14.2); RDW Standard Deviation 47.4 fL (35.1-46.3); Red Blood Cell Count 3.88 M/mm3 (3.80-5.20)
[2019-04-26 19:48] LABS: Alanine Aminotransfer (ALT/SGP 17 U/L (12-78); Albumin, Blood 3.2 g/dL (3.4-5.0); Albumin/Globulin Ratio 0.7 (0.8-1.8); Alk Phos 65 U/L (50-136); Anion Gap 7 mmol/L (6-16); Aspartate Aminotrans (AST/SGOT 18 U/L (12-37); Bilirubin, Total 0.3 mg/dL (0.1-1.0); Blood Urea Nitrogen 26 mg/dL (8-24); Bun/Creatinine Ratio 34.6 (12.0-20.0); CO2, Blood 23 mmol/L (21-32); Calcium, Blood 9.2 mg/dL (8.5-10.1); Chloride, Blood 109 mmol/L (98-108); Creatinine, Blood 0.75 mg/dL (0.40-1.00); Globulin, Blood 4.7 g/dL (2.2-4.0); Glomerular Filtration Rate >60 (60-); Glucose, Blood 98 mg/dL (70-99); Potassium, Blood 3.8 mmol/L (3.5-5.5); Sodium, Blood 139 mmol/L (136-145); Total Protein, Blood 7.9 g/dL (6.4-8.2)
[2019-04-26 19:53] LABS: BAND PERCENT MAN 1 % (0-8); BASOPHILS PERCENT MAN 0 % (0-2); EOSINOPHILS PERCENT MAN 1 % (0-6); LYMPHOCYTES ABSOLUTE MAN 5.43 K/mm3 (0.84-5.20); LYMPHOCYTES PERCENT MAN 26 % (21-46); MONOCYTES ABSOLUTE MAN 3.13 K/mm3 (0.16-1.47); MONOCYTES PERCENT MAN 15 % (4-13); NEUTROPHILS ABSOLUTE MAN 12.12 K/mm3 (1.96-9.15); SEG NEUTROPHILS PERCENT MAN 57 % (41-73); TOTAL CELLS COUNTED 100
[2019-04-26 20:18] LABS: Source, Urine Clean Catch
[2019-04-26 20:23] LABS: Bilirubin, Urine Neg (Neg); Blood, Urine 3+ (Neg); Glucose Qualitative, Urine Neg (Neg); Ketones, Urine Neg (Neg); Leukocyte Esterase, Urine Neg (Neg); Nitrite, Urine Neg (Neg); Protein, Urine 2+ (Neg); Specific Gravity, Urine 1.015 (1.003-1.022); Urobilinogen, Urine NORM (Normal)
[2019-04-26 20:35] LABS: Appearance, Urine Hazy (Clear); Color, Urine Yellow (P-Yellow)
[2019-04-26 20:37] LABS: Bacteria Few /hpf; Red Blood Cells, Urine 0-2 /hpf (0-2); Squamous Epithelial Cells Rare /hpf (Few); White Blood Cells, Urine 0-2 /hpf (0-5)
== END 2019-04-27 06:40 | disposition home or self-care (01) ==
LOC: ER 19:06
PROVIDERS: Emergency Medicine
DX: R50.9 Fever, unspecified (principal); Z88.8 Allergy status to other drugs, medicaments and biological substances; Z79.899 Other long term (current) drug therapy; E11.9 Type 2 diabetes mellitus without complications
CPT/HCPCS: 36415; 71046; 74176; 80053; 81001; 83605; 84145; 85025; 87040; 96361; 96365; 99284-25; A9270; J0696; J7030; P9612

== ENCOUNTER 2019-05-22 12:06 | Emergency (ER) | payer OTHER ==
[~2019-05-22] VITALS: Ht 167.6 cm; Wt 60.8 kg
[2019-05-22] MEDS ORDERED: HYDR1TAB94 PO (16:13)
== END 2019-05-22 18:54 | disposition home or self-care (01) ==
LOC: ER 12:06
DX: S09.90XA Unspecified injury of head, initial encounter (principal); M25.552 Pain in left hip; M54.5 Low back pain; M79.605 Pain in left leg; E11.40 Type 2 diabetes mellitus with diabetic neuropathy, unspecified; Z85.6 Personal history of leukemia; Z91.048 Other nonmedicinal substance allergy status; Z79.899 Other long term (current) drug therapy; W01.10XA Fall on same level from slipping, tripping and stumbling with subsequent striking against unspecified object, initial encounter
CPT/HCPCS: 70450; 72100; 73502; 96374; 96375; 99284-25; J2405; J3010

== ENCOUNTER 2019-06-06 10:18 | Emergency (ER) | payer OTHER ==
[~2019-06-06] VITALS: Ht 152.4 cm; Wt 59.0 kg
[~2019-06-06 10:18] MED LIST changes: +HYDR1TAB94 PO
[2019-06-06 14:09] LABS: Source, Urine Clean Catch
[2019-06-06] MEDS ORDERED: Norco 5-325 Ta1 EACH PO (14:23)
[2019-06-06] MEDS ORDERED: LIDO700A20 TOP (14:23)
[2019-06-06 14:37] LABS: Bilirubin, Urine Neg (Neg); Blood, Urine 1+ (Neg); Glucose Qualitative, Urine Neg (Neg); Ketones, Urine Neg (Neg); Leukocyte Esterase, Urine 1+ (Neg); Nitrite, Urine Neg (Neg); Protein, Urine 2+ (Neg); Urobilinogen, Urine NORM (Normal)
[2019-06-06 14:45] LABS: Appearance, Urine Clear (Clear); Color, Urine Yellow (P-Yellow)
[2019-06-06 14:46] LABS: Bacteria Mod /hpf; Red Blood Cells, Urine 0-2 /hpf (0-2); Squamous Epithelial Cells Few /hpf (Few)
[2019-06-06] MEDS ORDERED: CEPH500 PO (14:52)
== END 2019-06-06 15:25 | disposition home or self-care (01) ==
LOC: ER 10:18
PROVIDERS: Emergency Medicine
DX: M54.5 Low back pain (principal); G89.21 Chronic pain due to trauma; N39.0 Urinary tract infection, site not specified; E11.9 Type 2 diabetes mellitus without complications; Z85.6 Personal history of leukemia; Z79.899 Other long term (current) drug therapy
CPT/HCPCS: 72100; 81001; 87086; 96374; 96375; 99284-25; J1885; J2405; J3010

== ENCOUNTER 2019-06-15 15:26 | Emergency (ER) | payer OTHER ==
[~2019-06-15] VITALS: Ht 134.6 cm; Wt 69.8 kg
[~2019-06-15 15:26] MED LIST changes: +LIDO700A20 TOP
[2019-06-15 16:11] LABS: Source, Urine Clean Catch
[2019-06-15 16:14] LABS: Bilirubin, Urine Neg (Neg); Blood, Urine Neg (Neg); Glucose Qualitative, Urine Neg (Neg); Ketones, Urine Neg (Neg); Leukocyte Esterase, Urine 1+ (Neg); Nitrite, Urine Neg (Neg); Protein, Urine 2+ (Neg); Specific Gravity, Urine 1.015 (1.003-1.022); Urobilinogen, Urine NORM (Normal)
[2019-06-15 16:41] LABS: Appearance, Urine Clear (Clear); Color, Urine Yellow (P-Yellow)
[2019-06-15 16:42] LABS: Bacteria Few /hpf; Red Blood Cells, Urine Not Seen /hpf (0-2); Squamous Epithelial Cells Few /hpf (Few)
[2019-06-15 16:44] LABS: Hyaline Casts 0-2 /lpf (0-2)
[2019-06-15 17:20] LABS: Calcium, Ionized (POC) 1.32 mmol/L (1.10-1.46); Chloride (POC) 109 mmol/L (98-108); Creatinine (POC) 0.8 mg/dL (0.6-1.0); Glucose (ISTAT POC) 123 mg/dL (70-99); Hemoglobin (POC) 11.9 g/dL (12.0-16.0); Potassium (POC) 3.6 mmol/L (3.5-5.5); Sodium (POC) 141 mmol/L (135-148); Total CO2 (POC) 24 mmol/L (21-32)
== END 2019-06-15 18:58 | disposition home or self-care (01) ==
LOC: ER 15:26
PROVIDERS: Emergency Medicine
DX: R53.1 Weakness (principal); E11.9 Type 2 diabetes mellitus without complications; Z85.6 Personal history of leukemia; Z79.899 Other long term (current) drug therapy
CPT/HCPCS: 51798; 80047; 81001; 85014; 87086; 99283

== ENCOUNTER 2019-11-30 21:20 | Emergency (ER) | payer OTHER ==
[~2019-11-30] VITALS: Ht 167.6 cm; Wt 65.3 kg
[2019-11-30] MEDS ORDERED: TRIA15CR3 TOP (23:33)
== END 2019-11-30 23:57 | disposition home or self-care (01) ==
LOC: ER 21:20
DX: L30.9 Dermatitis, unspecified (principal); E11.9 Type 2 diabetes mellitus without complications; Z79.899 Other long term (current) drug therapy
CPT/HCPCS: 99282

== ENCOUNTER 2019-12-26 19:45 | Emergency (ER) | payer OTHER ==
[~2019-12-26] VITALS: Ht 167.6 cm; Wt 61.2 kg
[~2019-12-26 19:45] MED LIST changes: +TRIA15CR3 TOP
[2019-12-26] MEDS ORDERED: VIRT-CAPS SOFTGE1 MG PO (19:57)
[2019-12-26] MEDS ORDERED: GABA100 PO (19:58)
[2019-12-26] MEDS ORDERED: THERACRAN650 MG PO (19:58)
[2019-12-26] MEDS ORDERED: HYDCOR10 PO (19:58)
[2019-12-26] MEDS ORDERED: METO25 PO (19:59)
[2019-12-26] MEDS ORDERED: THERA1 EACH PO (19:59)
[2019-12-26] MEDS ORDERED: VALA500 PO (20:01)
[2019-12-26] MEDS ORDERED: VITAMIN D35000 UNI2 PO (20:01)
[2019-12-26] MEDS ORDERED: LOSA25 PO (20:02)
[2019-12-26] MEDS ORDERED: BIOTIN5000 MCG PO (20:02)
[2019-12-26 20:33] LABS: BASOPHILS ABSOLUTE AUTO 0.06 K/mm3 (0.00-0.23); BASOPHILS PERCENT AUTO 0 % (0-2); EOSINOPHILS ABSOLUTE AUTO 0.17 K/mm3 (0.00-0.68); EOSINOPHILS PERCENT AUTO 1 % (0-6); Hematocrit 38.7 % (33.0-51.0); Hemoglobin 12.6 g/dL (11.5-16.0); IMMATURE GRAN ABSOLUTE AUTO 0.08 K/mm3 (0.00-0.10); IMMATURE GRAN PERCENT AUTO 0 % (0-1); LYMPHOCYTES PERCENT AUTO 36 % (21-46); MONOCYTES ABSOLUTE AUTO 1.93 K/mm3 (0.16-1.47); MONOCYTES PERCENT AUTO 10 % (4-13); Mean Corpuscular HGB Conc 32.6 g/dL (31.5-36.5); Mean Corpuscular Volume 95 fL (80-100); Mean Platelet Volume 9.5 fL (9.1-12.4); NEUTROPHILS ABSOLUTE AUTO 10.05 K/mm3 (1.96-9.15); NEUTROPHILS PERCENT AUTO 52 % (41-73); Platelet Count 318 K/mm3 (150-400); RDW Standard Deviation 49.1 fL (35.1-46.3); Red Blood Cell Count 4.07 M/mm3 (3.80-5.20); White Blood Cell Count 19.19 K/mm3 (4.00-11.30)
[2019-12-26 20:51] LABS: Alanine Aminotransfer (ALT/SGP 23 U/L (12-78); Albumin, Blood 3.5 g/dL (3.4-5.0); Albumin/Globulin Ratio 0.8 (0.8-1.8); Alk Phos 51 U/L (50-136); Anion Gap 6 mmol/L (6-16); Aspartate Aminotrans (AST/SGOT 17 U/L (12-37); Bilirubin, Total 0.2 mg/dL (0.1-1.0); Blood Urea Nitrogen 25 mg/dL (8-24); Bun/Creatinine Ratio 26.2 (12.0-20.0); CO2, Blood 24 mmol/L (21-32); Calcium, Blood 9.1 mg/dL (8.5-10.1); Chloride, Blood 108 mmol/L (98-108); Creatinine, Blood 0.96 mg/dL (0.40-1.00); Globulin, Blood 4.5 g/dL (2.2-4.0); Glomerular Filtration Rate >60 (60-); Glucose, Blood 106 mg/dL (70-99); Potassium, Blood 3.8 mmol/L (3.5-5.5); Sodium, Blood 138 mmol/L (136-145)
[2019-12-26 21:27] LABS: Source, Urine Clean Catch
[2019-12-26 21:29] LABS: Bilirubin, Urine Neg (Neg); Blood, Urine 1+ (Neg); Glucose Qualitative, Urine Neg (Neg); Ketones, Urine Neg (Neg); Leukocyte Esterase, Urine Neg (Neg); Nitrite, Urine Neg (Neg); Protein, Urine 1+ (Neg); Urobilinogen, Urine NORM (Normal)
[2019-12-26 21:34] LABS: Appearance, Urine Clear (Clear); Color, Urine Yellow (P-Yellow)
[2019-12-26 21:36] LABS: Bacteria Few /hpf; Red Blood Cells, Urine 0-2 /hpf (0-2); Squamous Epithelial Cells Few /hpf (Few); White Blood Cells, Urine 0-2 /hpf (0-5)
[2019-12-26] MEDS ORDERED: LEVFLO500 PO (21:52)
== END 2019-12-26 22:55 | disposition home or self-care (01) ==
LOC: ER 19:45
PROVIDERS: Emergency Medicine
DX: J40 Bronchitis, not specified as acute or chronic (principal); E11.9 Type 2 diabetes mellitus without complications; Z79.899 Other long term (current) drug therapy
CPT/HCPCS: 36415; 71045; 80053; 81001; 85025; 93005; 93010; 99284-25

== ENCOUNTER → 2020-06-24 | Outpatient (CLI) | payer OTHER ==
[~2020-06-24] MED LIST changes: +BIOTIN5000 MCG PO; +HYDCOR10 PO; +THERA1 EACH PO; +THERACRAN650 MG PO; +VIRT-CAPS SOFTGE1 MG PO; +VITAMIN D35000 UNI2 PO
[2020-06-25 17:39] LABS: Bilirubin, Urine Neg (Neg); Blood, Urine Neg (Neg); Glucose Qualitative, Urine Neg (Neg); Ketones, Urine Neg (Neg); Leukocyte Esterase, Urine Neg (Neg); Nitrite, Urine Neg (Neg); Protein, Urine 1+ (Neg); Urobilinogen, Urine NORM (Normal)
[2020-06-25 18:00] LABS: Appearance, Urine Clear (Clear); Color, Urine Yellow (P-Yellow)
== END | disposition home or self-care (01) ==
LOC: LAB 13:10 → LAB SHORT 13:10
PROVIDERS: Internal Medicine Hematology & Oncology
DX: C92.00 Acute myeloblastic leukemia, not having achieved remission (principal); R39.81 Functional urinary incontinence; Z94.84 Stem cells transplant status
CPT/HCPCS: 87086

== ENCOUNTER → 2020-12-24 | Outpatient (CLI) | payer OTHER ==
[~2020-12-24] MED LIST changes: +CITALOPRAM HBR10 MG PO; +DONE10 PO
[2020-12-24 20:28] LABS: Adenovirus F 40/41 Not Detected (NOT DETECT); Astrovirus Not Detected (NOT DETECT); Campylobacter Sp Not Detected (NOT DETECT); Cryptosporidium Not Detected (NOT DETECT); Cyclospora Cayetanensis Not Detected (NOT DETECT); E. Coli O157 Not Detected (NOT DETECT); Entamoeba Histolytica Not Detected (NOT DETECT); Enteroaggregative E. coli-EAEC Not Detected (NOT DETECT); Enteropathogenic E. coli-EPEC Not Detected (NOT DETECT); Enterotoxigenic E. coli-ETEC Not Detected (NOT DETECT); Giardia Lamblia Not Detected (NOT DETECT); Norovirus GI/GII Not Detected (NOT DETECT); Plesiomonas Shigelloides Not Detected (NOT DETECT); Rotavirus A Not Detected (NOT DETECT); Salmonella Sp Not Detected (NOT DETECT); Sapovirus Not Detected (NOT DETECT); Shiga Toxin-prod E. coli-STEC Not Detected (NOT DETECT); Shigella/Enteroin E. coli-EIEC Not Detected (NOT DETECT); Vibrio Cholerae Not Detected (NOT DETECT); Vibrio Sp Not Detected (NOT DETECT); Yersinia Enterocolitica Not Detected (NOT DETECT)
== END | disposition home or self-care (01) ==
LOC: LAB SHORT 14:10 → LAB 14:10 → LAB FUT 12-17 13:40 → EDSTATUS 12-17 13:40
PROVIDERS: Student in an Organized Health Care Education/Training Program
DX: R19.7 Diarrhea, unspecified (principal)
CPT/HCPCS: 0097U; 87324

== ENCOUNTER 2021-02-27 07:28 | Day surgery (SDC) | payer OTHER ==
--- NOTE | 2021-02-27 09:06 | NUR ---
02/27/21 0906 Lesvia Santiago FIRST ATTEMPT MISSED BY JANNA IN THE RIGHT HAND. SECOND ATTEMPT SUCCESSFUL IN THE LEFT HAND BY JANNA. PT TOW.
--- NOTE | 2021-02-27 10:50 | NUR ---
02/27/[address] USED SAME GREEN UPPER SCOPE FOR FLEXIBLE SIGMOIDOSCOPY.
== END 2021-02-27 10:52 | disposition home or self-care (01) ==
LOC: ORSCSDS 07:28
PROVIDERS: Student in an Organized Health Care Education/Training Program
PROC: 0DB98ZX Excision of Duodenum, Via Natural or Artificial Opening Endoscopic, Diagnostic (ICD-10-PCS; principal; 2021-02-27 09:45)
PROC: 0DBN8ZX Excision of Sigmoid Colon, Via Natural or Artificial Opening Endoscopic, Diagnostic (ICD-10-PCS; principal; 2021-02-27 09:45)
PROC: 0DB78ZX Excision of Stomach, Pylorus, Via Natural or Artificial Opening Endoscopic, Diagnostic (ICD-10-PCS; principal; 2021-02-27 09:45)
PROC: 0DBP8ZX Excision of Rectum, Via Natural or Artificial Opening Endoscopic, Diagnostic (ICD-10-PCS; principal; 2021-02-27 09:45)
DX: R19.7 Diarrhea, unspecified (principal); K57.30 Diverticulosis of large intestine without perforation or abscess without bleeding; R14.0 Abdominal distension (gaseous); K44.9 Diaphragmatic hernia without obstruction or gangrene; K29.70 Gastritis, unspecified, without bleeding; K31.7 Polyp of stomach and duodenum; I10 Essential (primary) hypertension; E11.9 Type 2 diabetes mellitus without complications; E78.5 Hyperlipidemia, unspecified; Z79.899 Other long term (current) drug therapy
CPT/HCPCS: 82947; 88305; 88342; J0330; J0461; J2405; J2704; J7120

== ENCOUNTER 2022-03-01 11:51 | Inpatient (IN) | payer OTHER ==
[~2022-03-01] VITALS: Ht 162.6 cm; Wt 72.5 kg
[2022-03-01 12:21] LABS: Source, Urine Straight Cath
[2022-03-01] MEDS ORDERED: MERIBIN5 MG PO (12:24)
[2022-03-01 12:25] LABS: Appearance, Urine Hazy (Clear); Bilirubin, Urine Neg (Neg); Blood, Urine 2+ (Neg); Color, Urine Yellow (P-Yellow); Glucose Qualitative, Urine 1+ (Neg); Ketones, Urine Neg (Neg); Leukocyte Esterase, Urine Neg (Neg); Nitrite, Urine Neg (Neg); Protein, Urine 3+ (Neg); Urobilinogen, Urine NORM (Normal)
[2022-03-01] MEDS ORDERED: CITALOPRAM HBR10 MG PO (12:25)
[2022-03-01 12:26] LABS: Hematocrit 24.1 % (33.0-51.0); Hemoglobin 7.9 g/dL (11.5-16.0); Mean Corpuscular HGB 29.4 pg (26.0-34.0); Mean Corpuscular HGB Conc 32.8 g/dL (31.5-36.5); Mean Corpuscular Volume 90 fL (80-100); Mean Platelet Volume 9.4 fL (9.1-12.4); Platelet Count 70 K/mm3 (150-400); RDW Coefficient Variation 16.3 % (11.7-14.2); Red Blood Cell Count 2.69 M/mm3 (3.80-5.20); White Blood Cell Count 3.92 K/mm3 (4.00-11.30)
[2022-03-01] MEDS ORDERED: CRANBERRY CAP PO (12:26)
[2022-03-01] MEDS ORDERED: DONEPEZIL HCL10 MG PO (12:26)
[2022-03-01] MEDS ORDERED: LOSA25 PO (12:27)
[2022-03-01] MEDS ORDERED: GABA100 PO (12:27)
[2022-03-01] MEDS ORDERED: METO25 PO (12:27)
[2022-03-01] MEDS ORDERED: MULTIPLE VITAM1 EACH PO (12:28)
[2022-03-01] MEDS ORDERED: CALCIUM CARBON500 M1 PO (12:28)
[2022-03-01] MEDS ORDERED: OMEGA-3 + VITA200 ML PO (12:28)
[2022-03-01] MEDS ORDERED: Vitamin B Comple1 EA PO (12:29)
[2022-03-01] MEDS ORDERED: Acerola C500 MG PO (12:29)
[2022-03-01] MEDS ORDERED: KETO15TC TOP (12:30)
[2022-03-01] MEDS ORDERED: ARNUITY ELLIPT50 MCG (12:31)
[2022-03-01] MEDS ORDERED: LOPE2C PO (12:32)
[2022-03-01] MEDS ORDERED: LORA10ER PO (12:32)
[2022-03-01] MEDS ORDERED: Pepto-Bismol262 M1 PO (12:33)
[2022-03-01 12:44] LABS: Albumin, Blood 2.3 g/dL (3.4-5.0); Albumin/Globulin Ratio 0.5 (0.8-1.8); Bilirubin, Total 0.3 mg/dL (0.1-1.0); Bun/Creatinine Ratio 28.9 (12.0-20.0); Calcium, Blood 8.2 mg/dL (8.5-10.1); Creatinine, Blood 1.8 mg/dL (0.40-1.00); Globulin, Blood 5.1 g/dL (2.2-4.0); Total Protein, Blood 7.4 g/dL (6.4-8.2)
[2022-03-01 12:46] LABS: Amorphous Mod (0-Heavy); Hyaline Casts 0-2 /lpf (0-2); Waxy Cast 0-2 /lpf (0)
[2022-03-01 12:48] LABS: Squamous Epithelial Cells Rare /hpf (Few); White Blood Cells, Urine 0-2 /hpf (0-5)
[2022-03-01 12:50] LABS: Bacteria Many /hpf
[2022-03-01 12:51] LABS: Mucus Light (0-Heavy)
[2022-03-01 12:56] LABS: BAND PERCENT MAN 1 % (0-8); BASOPHILS PERCENT MAN 0 % (0-2); EOSINOPHILS ABSOLUTE MAN 0.11 K/mm3 (0.00-0.68); EOSINOPHILS PERCENT MAN 3 % (0-6); LYMPHOCYTES ABSOLUTE MAN 3.13 K/mm3 (0.84-5.20); LYMPHOCYTES PERCENT MAN 80 % (21-46); MONOCYTES PERCENT MAN 0 % (4-13); NEUTROPHILS ABSOLUTE MAN 0.62 K/mm3 (1.96-9.15); PLASMA CELL ABSOLUTE MAN 0.03 K/mm3 (0.00-0.00); PLASMA CELLS PERCENT MAN 1 % (0-0); SEG NEUTROPHILS PERCENT MAN 15 % (41-73); TOTAL CELLS COUNTED 100
[2022-03-01 13:08] LABS: Influenza A, PCR NEGATIVE (NEGATIVE); Influenza B, PCR NEGATIVE (NEGATIVE); Resp Syncytial Virus, PCR NEGATIVE (NEGATIVE); SARS-Cov-2 (COVID-19) PCR, MMC NEGATIVE (NEGATIVE)
[2022-03-01 15:23] LABS: International Normalized Ratio 1.75; Prothrombin Time Results 17.7 Sec (9.7-11.5)
--- NOTE | 2022-03-01 19:24 | NUR ---
1600 RECEIVED PT TO 343 VIA GURNEY FROM ER. PT UNABLE TO TX SELF TO BED; SLIDE TX DONE. DAUGHTER TO WITH PT. PT ADMITTED FOR SEPSIS PNM AND UTI. PER REPORT, PT TO ER WITH WITH C/O COUGH AND WEAKNESS X1 WEEK; TEMP 101.9. HX LEUKEMIA AND SEPTIC PANCYTOPENIA. PT INCONTINENT OF BOWEL AND BLADDER IN ER AND TO . HX OF C-DIFF. PT HAVING 3 LIQUID STOOLS SINCE COMING TO ; DONALDO GARCIA NOTIFIED FOR ORDERS TO R/O C-DIFF. STOOL SAMPLE OBTAINED AND SENT. PT RECEIVING IVF'S. BRUISING FOUND UNDER BOTH ARMS, BACK, BUTTOCKS, AND PATTI AREA FROM FALLS AT [facility]. DAUGHTER UPSET AT BRUISING FOUND. PT IS A&O, BUT DAUGHTER REPORTS HX OF ALZ DEMENTIA. BED ALARM ON FOR SAFETY. PT RESTING QUIETLY WATCHING TV AT THIS TIME. CALL LT IN REACH. REPORT GIVEN TO ONCOMING RN.
[2022-03-01 20:39] LABS: C DIFFICILE DNA NEGATIVE (Negative)
[2022-03-02 04:38] LABS: BASOPHILS PERCENT AUTO 0 % (0-2); EOSINOPHILS ABSOLUTE AUTO 0.08 K/mm3 (0.00-0.68); EOSINOPHILS PERCENT AUTO 2 % (0-6); Hematocrit 21.6 % (33.0-51.0); Hemoglobin 6.9 g/dL (11.5-16.0); IMMATURE GRAN ABSOLUTE AUTO 0.01 K/mm3 (0.00-0.10); IMMATURE GRAN PERCENT AUTO 0 % (0-1); LYMPHOCYTES ABSOLUTE AUTO 3.16 K/mm3 (0.84-5.20); LYMPHOCYTES PERCENT AUTO 72 % (21-46); MONOCYTES ABSOLUTE AUTO 0.37 K/mm3 (0.16-1.47); MONOCYTES PERCENT AUTO 8 % (4-13); Mean Corpuscular HGB 29.7 pg (26.0-34.0); Mean Corpuscular HGB Conc 31.9 g/dL (31.5-36.5); Mean Corpuscular Volume 93 fL (80-100); Mean Platelet Volume 9.5 fL (9.1-12.4); NEUTROPHILS PERCENT AUTO 18 % (41-73); Platelet Count 59 K/mm3 (150-400); RDW Coefficient Variation 16.5 % (11.7-14.2); Red Blood Cell Count 2.32 M/mm3 (3.80-5.20); White Blood Cell Count 4.42 K/mm3 (4.00-11.30)
--- NOTE | 2022-03-02 04:53 | NUR ---
SHIFT SUMMARY 71 YR F ADMITTED ON 03/01/22 FOR SEPSIS PNEUMONIA. FULL CODE. C-DIF RESULTS WERE NEGATIVE SO ISOLATION ORDER WAS CANCELLED. SHE HAS NOT HYAD A DIARRHEA BOWEL MOVEMENT THIS SHIFT. SHE HAS BEEN INCONTINENT OF URINT THOUGH. BARRIER CREAM USED ON PATTI AREA IT HAS BECOME RED AND SORE FROM THE DIARRHEA EPISODES. PT HAS A SIGNIFICANT AMOUNT OF BRUISING OVER HER BODY SO IT WAS PAINFUL FOR HER TO BE TURNED WHEN CLEANED UP. SHE IS A PLEASANT AND COOPERATIVE WOMAN, SHE JUST APPEARS CONFUSED AND IN PAIN.
[2022-03-02 05:05] LABS: Albumin/Globulin Ratio 0.5 (0.8-1.8); Bilirubin, Total 0.4 mg/dL (0.1-1.0); Bun/Creatinine Ratio 29.3 (12.0-20.0); Calcium, Blood 7.9 mg/dL (8.5-10.1); Creatinine, Blood 1.67 mg/dL (0.40-1.00); Globulin, Blood 4.4 g/dL (2.2-4.0); Potassium, Blood 4.9 mmol/L (3.5-5.5); Total Protein, Blood 6.4 g/dL (6.4-8.2)
--- NOTE | 2022-03-02 18:30 | NUR ---
SHIFT SUMMARY PATIENT IS ALERT AND ORIENTED X3 SELF, SITUATION AND DAUGHTER. PATIENT IS COOPERATIVE WITH CARE. 2 PERSON ASSIST, Q 2 TURNS. PATIENT HAS HAD A FEVER TODAY. TYLENOL GIVEN PER NOV. BLOOD CULTURES ORDERED PER DR. BARRAZA PATIENT'S HGB 6.9 THIS AM. PATIENT HAS THEIR SECOND UNIT OF BLOOD INFUSING NOW. PATIENT HAS BEEN TOLERATING IT WELL. PATIENT CURRENTLY ON 2LPM OF 02 VIA NASAL CANNULA. RA AT BASELINE TITRATED DOWN FROM 4PM TODAY. PATIENT HAS DARK PURPLE BRUISES ON UPPER AND LOWER EXTREMITIES AND LEFT BUTTOCKS. PATIENT'S DAUGHTER AT BEDSIDE MOST OF THE DAY. BED IN LOWEST POSITION, AND CALL LIGHT WITHIN REACH.
--- NOTE | 2022-03-03 04:13 | NUR ---
SHIFT SUMMARY ADMITTED FOR UTI/SEPSIS/NASREEN. FULL CODE. PLAN IS FOR IV FLUIDS, IV ANTIB RX, ONCOLOGY CONSULTING. TELEMETRY: NSR @ 73 BPM. HX OF LEUKEMIA. HX OF FALLS. PT REPORTS SHE DOES NOT AMBULATE. SHE HAS NUMEROUS BRUISES AND THROMBOCYTOPENIA. 2 UNITS OF PRBC'S GIVEN. SHE IS Q 2 TURNS. REDNESS NOTED IN GROIN AREA. NO FEVER THIS SHIFT. 2 LPM O2 HERE, RA @ HOME. SHE IS INCONTINENT. HX OF DEMENTIA AND FALLS. FROM [facility]
[2022-03-03 05:30] LABS: Hematocrit 28.3 % (33.0-51.0); Hemoglobin 9.3 g/dL (11.5-16.0)
[2022-03-03 10:49] LABS: Hematocrit 27.8 % (33.0-51.0); Hemoglobin 9.3 g/dL (11.5-16.0); Mean Corpuscular HGB 30.2 pg (26.0-34.0); Mean Corpuscular HGB Conc 33.5 g/dL (31.5-36.5); Mean Corpuscular Volume 90 fL (80-100); RDW Coefficient Variation 15.6 % (11.7-14.2); RDW Standard Deviation 50.4 fL (35.1-46.3); Red Blood Cell Count 3.08 M/mm3 (3.80-5.20); White Blood Cell Count 4.84 K/mm3 (4.00-11.30)
[2022-03-03 10:50] LABS: Mean Platelet Volume 10.2 fL (9.1-12.4)
[2022-03-03 10:51] LABS: Platelet Count 47 K/mm3 (150-400)
[2022-03-03 11:45] LABS: BAND PERCENT MAN 4 % (0-8); BASOPHILS PERCENT MAN 0 % (0-2); BLASTS PERCENT MAN 12 % (0-0); EOSINOPHILS ABSOLUTE MAN 0.04 K/mm3 (0.00-0.68); EOSINOPHILS PERCENT MAN 1 % (0-6); LYMPHOCYTES % ATYPICAL MANUAL 1 % (0-0); LYMPHOCYTES PERCENT MAN 59 % (21-46); MONOCYTES PERCENT MAN 0 % (4-13); NEUTROPHILS ABSOLUTE MAN 1.06 K/mm3 (1.96-9.15); SEG NEUTROPHILS PERCENT MAN 18 % (41-73); TOTAL CELLS COUNTED 100
[2022-03-03 11:46] LABS: OTHER CELL PERCENT MAN 5 % (0-0)
--- NOTE | 2022-03-03 19:14 | NUR ---
SHIFT SUMMARY PT SLEEPING MOST OF THE DAY. APPEARS TOO WEAK TO GET STRAW TO MOUTH WHEN MEDS GIVEN. ABLE TO SWALLOW THEM BUT NEEDED CUING TO PUT STRAW IN MOUTH. DAUGHTER REPORTS HELPING HER EAT WHEN SHE IS HERE. REPORTS PAIN AND DISCOMFORT WITH CLEANING HER PERIRECTAL AREA DUE TO REDNESS AND IRRITATION. CREAM APPLIED FOR PROTECTION. DR. LECHUGA NOTIFIED THROUGH HIS OFFICE OF CRITICAL PLT LEVEL TODAY. SPOKE WITH DR. BARRAZA ABOUT SCD'S BEING USED WITH LOW PLT'S AND HE STATED NO USE OF THEM.
--- NOTE | 2022-03-04 05:24 | NUR ---
SHIFT SUMMARY ADMITTED FOR UTI/SEPSIS/NASREEN. FULL CODE. IV ANTIB RX ARE SCHEDULED. SHE COMES FROM [facility]. SHE APPEARS COMPLETELY BEDBOUND. SHE HAS REDNESS AND PAIN IN SKIN OF GROIN AREA, WE ARE Q2 TURNING HER AND APPLYING CREAM. WE ARE USING A PUREWICK CATHETER SHE IS INCONTINENT AND A HEAVY WETTER. HER DAUGHTER REPORTS THAT SHE IS ALSO A FEEDER. DIARRHEA NOTED IN SMALL AMOUNT THIS SHIFT. HX OF DEMENTIA. WHEELCHAIR BOUND AT BASELINE, BUT UNCERTAIN TO HOW LONG AGO. [facility] PLATELET LABS THEY HAVE BEEN LOW, DR LECHUGA IS CONSULT - HX OF LEUKEMIA, BONE MARROW TRANSPLANT.
[2022-03-04 05:45] LABS: Hematocrit 26.5 % (33.0-51.0); Hemoglobin 8.8 g/dL (11.5-16.0); Mean Corpuscular HGB 30.1 pg (26.0-34.0); Mean Corpuscular HGB Conc 33.2 g/dL (31.5-36.5); Mean Corpuscular Volume 91 fL (80-100); Mean Platelet Volume 9.6 fL (9.1-12.4); RDW Coefficient Variation 15.2 % (11.7-14.2); RDW Standard Deviation 50.1 fL (35.1-46.3); Red Blood Cell Count 2.92 M/mm3 (3.80-5.20)
[2022-03-04 06:13] LABS: Albumin, Blood 1.8 g/dL (3.4-5.0); Albumin/Globulin Ratio 0.4 (0.8-1.8); Bilirubin, Total 0.4 mg/dL (0.1-1.0); Bun/Creatinine Ratio 27.2 (12.0-20.0); Calcium, Blood 8.5 mg/dL (8.5-10.1); Creatinine, Blood 1.14 mg/dL (0.40-1.00); Globulin, Blood 4.6 g/dL (2.2-4.0); Potassium, Blood 4.4 mmol/L (3.5-5.5); Total Protein, Blood 6.4 g/dL (6.4-8.2)
[2022-03-04 06:19] LABS: Platelet Count 43 K/mm3 (150-400)
[2022-03-04 07:54] LABS: BAND PERCENT MAN 4 % (0-8); BASOPHILS PERCENT MAN 0 % (0-2); BLASTS PERCENT MAN 6 % (0-0); EOSINOPHILS PERCENT MAN 0 % (0-6); LYMPHOCYTES ABSOLUTE MAN 3.88 K/mm3 (0.84-5.20); LYMPHOCYTES PERCENT MAN 72 % (21-46); MONOCYTES PERCENT MAN 2 % (4-13); NEUTROPHILS ABSOLUTE MAN 0.91 K/mm3 (1.96-9.15); PROMYELOCYTE ABSOLUTE MAN 0.05 K/mm3 (0.00-0.00); PROMYELOCYTE PERCENT MAN 1 % (0-0); SEG NEUTROPHILS PERCENT MAN 13 % (41-73); TOTAL CELLS COUNTED 100
[2022-03-04 07:55] LABS: OTHER CELL PERCENT MAN 2 % (0-0)
--- NOTE | 2022-03-04 18:07 | NUR ---
SHIFT SUMMARY PT MORE AWAKE TODAY WITH EYES CLEAR AND SPEECH STRONGER. ABLE TO GET STRAW TO MOUTH AND DRINK WATER. PUREWICK WORKING WELL WITH INCONTINENCE AND SKIN IRRITAION. AFEBRILE FOR THE DAY. STATES SHE HAS LLQ DISCOMFORT WITH PALPATION THIS AFTERNOON. DR. LECHUGA WITH PLANS TO DO BONE [facility] BIOPSY AT 0830 TOMORROW. [facility] CALLED AND SAID THERE WAS AN ACCEPTING DRFlorina BUT NOW WAITING FOR A BED TO BE OPEN. DAUGHTER AT BEDSIDE APPROX NOON TODDAY.
--- NOTE | 2022-03-05 04:10 | NUR ---
SHIFT SUMMARY: NO SIGNIFICANT EVENTS ON NOC. COMPLIANT WITH PLAN OF CARE/MEDICATION ADMINISTRATIONS. SLEPT WELL THROUGH THE NIGHT. SEE SHIFT ASSESSMENT FOR DETAILS.
[2022-03-05 12:17] LABS: Hematocrit 27.2 % (33.0-51.0); Hemoglobin 8.9 g/dL (11.5-16.0); Mean Corpuscular HGB 29.8 pg (26.0-34.0); Mean Corpuscular HGB Conc 32.7 g/dL (31.5-36.5); Mean Corpuscular Volume 91 fL (80-100); Mean Platelet Volume 10.4 fL (9.1-12.4); NRBC ABSOLUTE 0.02 K/mm3 (0.00-0.02); NRBC Auto 0.3 /100 WBC (0.0-0.2); RDW Coefficient Variation 14.8 % (11.7-14.2); RDW Standard Deviation 49.4 fL (35.1-46.3); Red Blood Cell Count 2.99 M/mm3 (3.80-5.20); White Blood Cell Count 7.17 K/mm3 (4.00-11.30)
--- NOTE | 2022-03-05 12:17 | NUR ---
abiel from [facility] called. still pending bed. [phone]
[2022-03-05 12:25] LABS: Platelet Count 47 K/mm3 (150-400)
[2022-03-05 12:36] LABS: International Normalized Ratio 1.42; Prothrombin Time Results 14.6 Sec (9.7-11.5)
[2022-03-05 12:54] LABS: Albumin, Blood 1.9 g/dL (3.4-5.0); Albumin/Globulin Ratio 0.4 (0.8-1.8); Bilirubin, Total 0.4 mg/dL (0.1-1.0); Bun/Creatinine Ratio 27.1 (12.0-20.0); Calcium, Blood 8.8 mg/dL (8.5-10.1); Creatinine, Blood 1.07 mg/dL (0.40-1.00); Globulin, Blood 5.2 g/dL (2.2-4.0); Potassium, Blood 4.3 mmol/L (3.5-5.5); Total Protein, Blood 7.1 g/dL (6.4-8.2)
[2022-03-05 13:04] LABS: BASOPHILS PERCENT MAN 0 % (0-2); BLASTS PERCENT MAN 6 % (0-0); EOSINOPHILS PERCENT MAN 0 % (0-6); LYMPHOCYTES ABSOLUTE MAN 4.66 K/mm3 (0.84-5.20); LYMPHOCYTES PERCENT MAN 65 % (21-46); MONOCYTES ABSOLUTE MAN 0.07 K/mm3 (0.16-1.47); MONOCYTES PERCENT MAN 1 % (4-13); NEUTROPHILS ABSOLUTE MAN 1.93 K/mm3 (1.96-9.15); PROMYELOCYTE ABSOLUTE MAN 0.07 K/mm3 (0.00-0.00); PROMYELOCYTE PERCENT MAN 1 % (0-0); SEG NEUTROPHILS PERCENT MAN 27 % (41-73); TOTAL CELLS COUNTED 100
--- NOTE | 2022-03-05 17:43 | NUR ---
PT PLEASANT COOP TODAY. DOES NOT FOLLOW DIRECTION FOR STAND AND PIVOT. USING CONSTANT INSTRUCTION, CAN MOVE VERY SLOWLY. DID STAND PIVOT TO CHAIR FOR COUPLE HOURS. THEN TO BSC. THEN TO BED. NEED 2 ASST. TOOK BONE MARROW BIOPSY THIS MORNING. WE ARE STILL PENDING TRANSFER TO [facility]. NO NEW CONCERNS NOTED. BED IN LOW POSITIOIN, CALL LITE IN REACH, BED ALARM ONFOR SAFETY
--- NOTE | 2022-03-06 04:34 | NUR ---
ASSUMED CARE OF PT AT 1900. PT IS ALERT, CONFUSED, MODERATE ASSIST OOB, REQUIRES CONSTANT REMINDERS WHEN UP. NO ACUTE CHANES THIS SHIFT. HAS PUREWICK IN PLACE. PT HAD BONE MARROW BIOPSY PERFORMED ON 03/05, AWAITING RESULTS. [facility] CALLED FOR REPORT, STILL DOES NOT HAVE BED AVAILABLE. HAS BEEN TURNED Q2. RESTS BETWEEN CARES. WILL CONTINUE TO MONITOR.
[2022-03-06 05:57] LABS: Hematocrit 25.3 % (33.0-51.0); Hemoglobin 8.3 g/dL (11.5-16.0); Mean Corpuscular HGB 29.7 pg (26.0-34.0); Mean Corpuscular HGB Conc 32.8 g/dL (31.5-36.5); Mean Corpuscular Volume 91 fL (80-100); Mean Platelet Volume 10.9 fL (9.1-12.4); NRBC ABSOLUTE 0.04 K/mm3 (0.00-0.02); NRBC Auto 0.3 /100 WBC (0.0-0.2); RDW Standard Deviation 49.3 fL (35.1-46.3); Red Blood Cell Count 2.79 M/mm3 (3.80-5.20)
[2022-03-06 06:02] LABS: Platelet Count 44 K/mm3 (150-400)
[2022-03-06 06:22] LABS: BAND PERCENT MAN 5 % (0-8); BASOPHILS PERCENT MAN 0 % (0-2); BLASTS PERCENT MAN 3 % (0-0); EOSINOPHILS PERCENT MAN 0 % (0-6); LYMPHOCYTES ABSOLUTE MAN 9.43 K/mm3 (0.84-5.20); LYMPHOCYTES PERCENT MAN 78 % (21-46); MONOCYTES ABSOLUTE MAN 0.12 K/mm3 (0.16-1.47); MONOCYTES PERCENT MAN 1 % (4-13); MYELOCYTE ABSOLUTE MAN 0.24 K/mm3 (0.00-0.00); MYELOCYTE PERCENT MAN 2 % (0-0); NEUTROPHILS ABSOLUTE MAN 1.93 K/mm3 (1.96-9.15); SEG NEUTROPHILS PERCENT MAN 11 % (41-73); TOTAL CELLS COUNTED 100
--- NOTE | 2022-03-06 17:06 | NUR ---
SHIFT SUMMARY PT A&O, FOLLOWS COMMANDS. PT STILL PENDING BED PLACEMENT FOR FACILITY. STILL PENDING RESULTS FROM BIOPSY COMPLETED 03/05. PT TO RECEIVE ONE UNIT PRBC'S TODAY. PT UP TO CHAIR FOR MEALS, 2X ASSIST WITH GATE BELT. NO ACUTE CHANGES DURING SHIFT NOTED.
--- NOTE | 2022-03-06 18:01 | NUR ---
AGREE WITH RN NOTES
--- NOTE | 2022-03-07 06:08 | NUR ---
PATIENT TOLERATED PRBC LAST EVENING WITHOUT DIFFICULTY. PATIENT IS ALERT AND COOPERATIVE WITH STAFF WITH NO COMPLAINTS OF DISCOMFORT OVERNIGNT. UPDATED [facility] ON PATIENT STATUS. STILL AWAITING BED AVAILABILITY.
[2022-03-07 06:18] LABS: Hematocrit 27.8 % (33.0-51.0); Hemoglobin 9.2 g/dL (11.5-16.0); Mean Corpuscular HGB Conc 33.1 g/dL (31.5-36.5); Mean Corpuscular Volume 91 fL (80-100); Mean Platelet Volume 9.4 fL (9.1-12.4); NRBC ABSOLUTE 0.05 K/mm3 (0.00-0.02); NRBC Auto 0.2 /100 WBC (0.0-0.2); RDW Coefficient Variation 15.1 % (11.7-14.2); RDW Standard Deviation 49.1 fL (35.1-46.3); Red Blood Cell Count 3.07 M/mm3 (3.80-5.20); White Blood Cell Count 20.23 K/mm3 (4.00-11.30)
[2022-03-07 06:29] LABS: Platelet Count 43 K/mm3 (150-400)
[2022-03-07 06:38] LABS: Anion Gap 8 mmol/L (6-16); Blood Urea Nitrogen 30 mg/dL (8-24); Bun/Creatinine Ratio 27.5 (12.0-20.0); CO2, Blood 24 mmol/L (21-32); Calcium, Blood 8.9 mg/dL (8.5-10.1); Chloride, Blood 108 mmol/L (98-108); Creatinine, Blood 1.09 mg/dL (0.40-1.00); Glomerular Filtration Rate 55 (60-); Glucose, Blood 97 mg/dL (70-99); Magnesium, Blood 1.8 mg/dL (1.6-2.4); Phosphorus, Blood 4.3 mg/dL (2.5-4.9); Potassium, Blood 4.5 mmol/L (3.5-5.5); Sodium, Blood 140 mmol/L (136-145)
[2022-03-07 08:02] LABS: BAND PERCENT MAN 2 % (0-8); BASOPHILS PERCENT MAN 0 % (0-2); BLASTS PERCENT MAN 6 % (0-0); EOSINOPHILS PERCENT MAN 1 % (0-6); LYMPHOCYTES ABSOLUTE MAN 14.97 K/mm3 (0.84-5.20); LYMPHOCYTES PERCENT MAN 74 % (21-46); METAMYELOCYTE PERCENT MAN 2 % (0-0); MONOCYTES ABSOLUTE MAN 1.21 K/mm3 (0.16-1.47); MONOCYTES PERCENT MAN 6 % (4-13); MYELOCYTE PERCENT MAN 1 % (0-0); NEUTROPHILS ABSOLUTE MAN 1.61 K/mm3 (1.96-9.15); PROMYELOCYTE PERCENT MAN 2 % (0-0); SEG NEUTROPHILS PERCENT MAN 6 % (41-73); TOTAL CELLS COUNTED 100
[2022-03-07 13:50] LABS: International Normalized Ratio 1.36
--- NOTE | 2022-03-07 17:52 | NUR ---
SHIFT SUMMARY: NO ACUTE EVENTS. DENIED PAIN. BREATH SOUNDS ARE CTAB, ON ROOM AIR. PLATELETS 43; SCATTERED SEVERE ECCHYMOSIS ON ARMS, CHEST AND LEGS. INCONT OF B&B, ATTENDS IN PLACE. CBG < 120 ALL DAY, EATING LITTLE. AWAITING TRANSFER TO [facility].
--- NOTE | 2022-03-08 06:37 | NUR ---
NO CHANGES OVERNIGHT. PATIENT SLEPT WELL THROUGH THE SHIFT WAKING ONLY FOR POSITION/BRIEF CHANGES. MEDICATED ONCE OVERNIGHT SUCCESSFULLY WITH TYLENOL FOR CHRONIC/INTERMITTANT RIGHT SHOULDER PAIN. UNABLE TO DETERMINE INITIAL CAUSE OF THE DISCOMFORT. UPDATE GIVEN TO [facility]
--- NOTE | 2022-03-08 18:18 | NUR ---
SHIFT SUMMARY: NO ACUTE EVENTS. ATTEMPTED TO GET PT IN TO CHAIR FOR BREAKFAST, BUT SHE IS UNABLE TO BEAR ANY WEIGHT, COULD NOT STAND/PIVOT. IRRITABLE AT TIMES. APPETITE IS POOR, IS TAKING PO FLUIDS. INCONTINENT OF B&B. DENIED PAIN. CBG < 130, NO COVERAGE REQUIRED. AWAITING TRANSFER TO [facility].
--- NOTE | 2022-03-09 05:16 | NUR ---
END OF SHIFT NOTE PT USED BSC WITH 2X ASSIST FOR BM. PT TURNED THROUGHOUT THE NIGHT. NO ACUTE CHANGES VSS.
[2022-03-09 05:22] LABS: Hematocrit 29.1 % (33.0-51.0); Hemoglobin 9.7 g/dL (11.5-16.0); Mean Corpuscular HGB 30.5 pg (26.0-34.0); Mean Corpuscular HGB Conc 33.3 g/dL (31.5-36.5); Mean Corpuscular Volume 92 fL (80-100); Mean Platelet Volume 11.4 fL (9.1-12.4); NRBC ABSOLUTE 0.08 K/mm3 (0.00-0.02); NRBC Auto 0.2 /100 WBC (0.0-0.2); RDW Coefficient Variation 14.5 % (11.7-14.2); RDW Standard Deviation 48.2 fL (35.1-46.3); Red Blood Cell Count 3.18 M/mm3 (3.80-5.20); White Blood Cell Count 33.82 K/mm3 (4.00-11.30)
[2022-03-09 05:49] LABS: Platelet Count 38 K/mm3 (150-400)
[2022-03-09 06:03] LABS: Albumin, Blood 2.2 g/dL (3.4-5.0); Anion Gap 7 mmol/L (6-16); Blood Urea Nitrogen 24 mg/dL (8-24); Bun/Creatinine Ratio 20.7 (12.0-20.0); CO2, Blood 26 mmol/L (21-32); Calcium, Blood 9.5 mg/dL (8.5-10.1); Chloride, Blood 104 mmol/L (98-108); Creatinine, Blood 1.16 mg/dL (0.40-1.00); Glomerular Filtration Rate 51 (60-); Glucose, Blood 101 mg/dL (70-99); Phosphorus, Blood 4.9 mg/dL (2.5-4.9); Potassium, Blood 4.3 mmol/L (3.5-5.5); Sodium, Blood 137 mmol/L (136-145)
[2022-03-09 08:48] LABS: BAND PERCENT MAN 2 % (0-8); BASOPHILS PERCENT MAN 0 % (0-2); BLASTS PERCENT MAN 78 % (0-0); EOSINOPHILS PERCENT MAN 0 % (0-6); LYMPHOCYTES ABSOLUTE MAN 5.41 K/mm3 (0.84-5.20); LYMPHOCYTES PERCENT MAN 16 % (21-46); METAMYELOCYTE ABSOLUTE MAN 0.33 K/mm3 (0.00-0.00); METAMYELOCYTE PERCENT MAN 1 % (0-0); MONOCYTES ABSOLUTE MAN 0.67 K/mm3 (0.16-1.47); MONOCYTES PERCENT MAN 2 % (4-13); NEUTROPHILS ABSOLUTE MAN 1.01 K/mm3 (1.96-9.15); SEG NEUTROPHILS PERCENT MAN 1 % (41-73)
[2022-03-09 08:51] LABS: TOTAL CELLS COUNTED 100
--- NOTE | 2022-03-09 17:17 | NUR ---
SUMMARY NO ACUTE CHANGES T/O SHIFT. PT PLEASANT AND COOPERATIVE. INCONTINENT OF STOOL AND URINE. ATTENDS IN PLACE. PT HAS SMALL OPEN SORE NEAR RECTUM AND SIGNIFICANT BRUISING SCATTERED OVER BODY. BRUISING IS IN VARIOUS STAGES OF HEALING. WORKED W/PHYSICAL THERAPY TODAY. DR LECHUGA CALLED AND GAVE TELEPHONE ORDER FOR PICC LINE PLACEMENT PRIOR TO DC. NOTIFIED CUTTER GRINDER OPERATOR OF NEED.
--- NOTE | 2022-03-10 05:00 | NUR ---
PT HAD LARGE LOOSE STOOL AT START OF SHIFT. PT ATTEMPTED TO GET TO BSC BUT WAS UNABLE TO BARE WEIGHT, PT PLACED ON BEDBAN. TURNED THROUGHOUT THE NIGHT. PT AWAITING PICC LINE PLACEMENT FOR DISCHARGE.
[2022-03-10 05:04] LABS: Hemoglobin 9.8 g/dL (11.5-16.0); Mean Corpuscular HGB 29.9 pg (26.0-34.0); Mean Corpuscular HGB Conc 32.7 g/dL (31.5-36.5); Mean Corpuscular Volume 92 fL (80-100); Mean Platelet Volume 11.1 fL (9.1-12.4); NRBC ABSOLUTE 0.08 K/mm3 (0.00-0.02); NRBC Auto 0.2 /100 WBC (0.0-0.2); RDW Coefficient Variation 14.4 % (11.7-14.2); RDW Standard Deviation 47.8 fL (35.1-46.3); Red Blood Cell Count 3.28 M/mm3 (3.80-5.20); White Blood Cell Count 37.13 K/mm3 (4.00-11.30)
[2022-03-10 05:26] LABS: Albumin, Blood 2.3 g/dL (3.4-5.0); Anion Gap 7 mmol/L (6-16); Blood Urea Nitrogen 28 mg/dL (8-24); CO2, Blood 26 mmol/L (21-32); Calcium, Blood 9.2 mg/dL (8.5-10.1); Chloride, Blood 103 mmol/L (98-108); Glomerular Filtration Rate 41 (60-); Glucose, Blood 112 mg/dL (70-99); Potassium, Blood 4.7 mmol/L (3.5-5.5); Sodium, Blood 136 mmol/L (136-145)
[2022-03-10 05:47] LABS: Platelet Count 40 K/mm3 (150-400)
[2022-03-10 07:20] LABS: BASOPHILS PERCENT MAN 0 % (0-2); EOSINOPHILS PERCENT MAN 0 % (0-6); LYMPHOCYTES ABSOLUTE MAN 8.16 K/mm3 (0.84-5.20); LYMPHOCYTES PERCENT MAN 22 % (21-46); MONOCYTES ABSOLUTE MAN 0.37 K/mm3 (0.16-1.47); MONOCYTES PERCENT MAN 1 % (4-13); NEUTROPHILS ABSOLUTE MAN 0.37 K/mm3 (1.96-9.15); SEG NEUTROPHILS PERCENT MAN 1 % (41-73); TOTAL CELLS COUNTED 100
[2022-03-10 07:23] LABS: OTHER CELL PERCENT MAN 76 % (0-0)
--- NOTE | 2022-03-10 17:50 | NUR ---
SHIFT SUMMARY- PT A&O X2. VSS. PT PLEASANT WITH DAUGHTER AT BEDSIDE DURING AM. PT TO BE D/C PENDING [facility] ACCEPTANCE OF CHEMO MEDICATION ADMINISTERATION. PT RECEIVED PICC TODAY FOR D/C. PT WITH CALL LIGHT IN REACH, SIDE RAILS UP, AND BED ALARM ON. WILL CONTINUE TO MONITOR.
[2022-03-11 05:39] LABS: Hematocrit 29.3 % (33.0-51.0); Hemoglobin 9.4 g/dL (11.5-16.0); Mean Corpuscular HGB 29.8 pg (26.0-34.0); Mean Corpuscular HGB Conc 32.1 g/dL (31.5-36.5); Mean Corpuscular Volume 93 fL (80-100); Mean Platelet Volume 11.4 fL (9.1-12.4); NRBC ABSOLUTE 0.04 K/mm3 (0.00-0.02); NRBC Auto 0.1 /100 WBC (0.0-0.2); RDW Coefficient Variation 14.6 % (11.7-14.2); RDW Standard Deviation 48.7 fL (35.1-46.3); Red Blood Cell Count 3.15 M/mm3 (3.80-5.20); White Blood Cell Count 39.08 K/mm3 (4.00-11.30)
[2022-03-11 05:52] LABS: Albumin, Blood 2.3 g/dL (3.4-5.0); Anion Gap 9 mmol/L (6-16); Blood Urea Nitrogen 32 mg/dL (8-24); Bun/Creatinine Ratio 19.8 (12.0-20.0); CO2, Blood 26 mmol/L (21-32); Calcium, Blood 9.2 mg/dL (8.5-10.1); Chloride, Blood 102 mmol/L (98-108); Creatinine, Blood 1.62 mg/dL (0.40-1.00); Glomerular Filtration Rate 34 (60-); Glucose, Blood 118 mg/dL (70-99); Phosphorus, Blood 5.7 mg/dL (2.5-4.9); Platelet Count 37 K/mm3 (150-400); Potassium, Blood 4.4 mmol/L (3.5-5.5); Sodium, Blood 137 mmol/L (136-145)
--- NOTE | 2022-03-11 06:00 | NUR ---
PT TURNS WITH MINIMAL ASSIST, ALERT TO SELF. C/O SORE THROAT, GIVEN TYLENOL AND HOT TEA WITH RELIEF. VSS, NO INSULIN COVERAGE GIVEN.
[2022-03-11 06:44] LABS: BASOPHILS PERCENT MAN 0 % (0-2); BLASTS PERCENT MAN 62 % (0-0); EOSINOPHILS PERCENT MAN 0 % (0-6); LYMPHOCYTES ABSOLUTE MAN 10.94 K/mm3 (0.84-5.20); LYMPHOCYTES PERCENT MAN 28 % (21-46); MONOCYTES ABSOLUTE MAN 1.95 K/mm3 (0.16-1.47); MONOCYTES PERCENT MAN 5 % (4-13); MYELOCYTE ABSOLUTE MAN 0.39 K/mm3 (0.00-0.00); MYELOCYTE PERCENT MAN 1 % (0-0); NEUTROPHILS ABSOLUTE MAN 1.56 K/mm3 (1.96-9.15); SEG NEUTROPHILS PERCENT MAN 4 % (41-73); TOTAL CELLS COUNTED 100
--- NOTE | 2022-03-11 16:43 | NUR ---
SHIFT SUMMARY- PT A&O 1-2. VSS. PT COOPERATIVE WITH CARE. PT VOIDS IN ATTENDS AND APPEARS TO BE GETTING WEAKER FOR ADL'S. NO C/O PAIN. ABLE TO MOVE SELF IN BED, SLOWLY. APPETITE OK. PICC LINE STILL INATCT WITH LARGE CLOT BUT NO FURTHER CHANGE SINCE YESTERDAY, STILL VIABLE. PT RESTING COMFORTABLY AWAITING D/C FOR PLACEMENT TO SNF. BED LOWEST POSITION, CALL LIGHT IN REACH, AND SIDE RAILS UP.
--- NOTE | 2022-03-12 05:00 | NUR ---
SHIFT SUMMARY PT IS BILINGUAL, APPEARS TO UNDERSTAND MORE THAN SHE IS ABLE TO SPEAK BUT WAS ABLE TO MAKE HER NEEDS KNOWN EFFECTIVELY. DAUGHTER AT BEDSIDE EARLY IN SHIFT, ASSISTED PT WITH DINNER TRAY IN WHICH SHE WAS ABLE TO GET HER TO EAT MOST OF HER DINNER. PT WITH LOW GRADE TEMP 100.7. TYLENOL GIVEN WITH GOOD EFFECT BRINGING TEMPERATURE DOWN TO 98.8. PT DENIED ANY PAIN. SLEPT WELL THROUGH MOST OF THE NIGHT. NO ACUTE CHANGES THIS SHIFT. WILL CONTINUE TO MONITOR.
[2022-03-12 09:40] LABS: Hematocrit 30.3 % (33.0-51.0); Hemoglobin 9.8 g/dL (11.5-16.0); Mean Corpuscular HGB 29.6 pg (26.0-34.0); Mean Corpuscular HGB Conc 32.3 g/dL (31.5-36.5); Mean Corpuscular Volume 92 fL (80-100); Mean Platelet Volume 10.8 fL (9.1-12.4); NRBC ABSOLUTE 0.03 K/mm3 (0.00-0.02); NRBC Auto 0.1 /100 WBC (0.0-0.2); RDW Coefficient Variation 14.2 % (11.7-14.2); RDW Standard Deviation 46.9 fL (35.1-46.3); Red Blood Cell Count 3.31 M/mm3 (3.80-5.20); White Blood Cell Count 36.04 K/mm3 (4.00-11.30)
[2022-03-12 09:46] LABS: Platelet Count 37 K/mm3 (150-400)
--- NOTE | 2022-03-12 09:56 | NUR ---
DR CONTACTED CL PLATELET 37 REPORTED, LUMP ON BUTTOCKS REPORTED- PLANS TO COME ASSESS
[2022-03-12 10:44] LABS: BASOPHILS PERCENT MAN 0 % (0-2); BLASTS PERCENT MAN 72 % (0-0); EOSINOPHILS PERCENT MAN 0 % (0-6); LYMPHOCYTES ABSOLUTE MAN 8.64 K/mm3 (0.84-5.20); LYMPHOCYTES PERCENT MAN 24 % (21-46); MONOCYTES PERCENT MAN 0 % (4-13); NEUTROPHILS ABSOLUTE MAN 1.44 K/mm3 (1.96-9.15); SEG NEUTROPHILS PERCENT MAN 4 % (41-73); TOTAL CELLS COUNTED 100
--- NOTE | 2022-03-12 17:04 | NUR ---
SHIFT SUMMARY PT A&O X4 AND IN PLEASENT MOOD. CL PLATELET/POSSIBLE HEMATOMA TO L BUTTOCKS-1 UNIT OF PLATELETS CURRENTLY INFUSING. PT REPORTS HX OF NEEDING BENYDRL FOR PLATELET INFUSION-MEDICATED PER EMAR. CALL LIGHT W/IN REACH. VSS. TOLERATING PO INTAKE WELL. DENIES PAIN.
--- NOTE | 2022-03-13 04:21 | NUR ---
SHIFT SUMMARY PT HAD UNEVENTFUL NIGHT. REMAINED IN BED, TOO WEAK TO GET OUT OF BED. OVERALL THOUGH PT WITH NO COMPLAINTS. PT TEMPERATURE IMPROVED WITHOUT MEDICATIONS. 99.2 AND 99.3 THIS EVENING. PURE WIC IN PLACE. PT SLEPT MUCH OF THE NIGHT. CONTINUES TO AWAIT PLACEMENT. WILL CONTINUE TO MONITOR.
[2022-03-13 05:46] LABS: Hematocrit 27.4 % (33.0-51.0); Mean Corpuscular HGB 30.4 pg (26.0-34.0); Mean Corpuscular HGB Conc 32.8 g/dL (31.5-36.5); Mean Corpuscular Volume 93 fL (80-100); Mean Platelet Volume 11.4 fL (9.1-12.4); NRBC ABSOLUTE 0.06 K/mm3 (0.00-0.02); NRBC Auto 0.1 /100 WBC (0.0-0.2); Platelet Count 90 K/mm3 (150-400); RDW Coefficient Variation 14.2 % (11.7-14.2); RDW Standard Deviation 47.1 fL (35.1-46.3); Red Blood Cell Count 2.96 M/mm3 (3.80-5.20); White Blood Cell Count 48.87 K/mm3 (4.00-11.30)
[2022-03-13 06:36] LABS: BAND PERCENT MAN 1 % (0-8); BASOPHILS PERCENT MAN 0 % (0-2); BLASTS PERCENT MAN 64 % (0-0); EOSINOPHILS PERCENT MAN 0 % (0-6); LYMPHOCYTES ABSOLUTE MAN 14.17 K/mm3 (0.84-5.20); LYMPHOCYTES PERCENT MAN 29 % (21-46); MONOCYTES ABSOLUTE MAN 1.46 K/mm3 (0.16-1.47); MONOCYTES PERCENT MAN 3 % (4-13); NEUTROPHILS ABSOLUTE MAN 1.95 K/mm3 (1.96-9.15); SEG NEUTROPHILS PERCENT MAN 3 % (41-73); TOTAL CELLS COUNTED 100
--- NOTE | 2022-03-13 15:43 | NUR ---
THIS AUTHOR WAS APPROACHED BY PT'S DIL LYLE BLANCHARD ([phone]), STATING SHE WANTS TO TAKE PT TO [place] TO LIVE WITH HER AND HER (PT'S SON). LYLE STATED SHE WOULD BE ABLE TO TAKE CARE OF VIDAL SEASONAL WAREHOUSE ASSOCIATE. TALKED FOR A BIT ABOUT LOGISTICS OF TAKING PATIENT ON A LONG CAR RIDE (EATING, FATIGUE, BATHROOM, W/C, TRANSFERS, ETC). ALSO EXPLAINED THAT PROVIDERS WOULD HAVE TO FIND ACCEPTING PROVIDERS IN [place]. THIS AUTHOR SPOKE WITH BRENDEN FROM CARE MANAGEMENT ABOUT THIS IDEA. BRENDEN TOLD THIS AUTHOR THAT PT HAS MEDICAID IN [place], WHICH WILL NOT TRANSFER TO [place]. RELAYED THIS INFORMATION TO LYLE, WHO STATED SHE WILL SPEAK TO PT'S DAUGHTER SHYLA ABOUT STARTING MEDICAID PROCESS FOR [place]. THIS AUTHOR HAS NOT SPOKEN TO PT'S DAUGHTER SHYLA ABOUT THIS; IT IS UNKOWN IF SHYLA WOULD BE AMENABLE TO THIS IDEA.
--- NOTE | 2022-03-13 18:24 | NUR ---
SHIFT SUMMARY: NO ACUTE EVENTS. A&O X 2, PLEASANT AND COOPERATIVE. LUNGS CLEAR, ON ROOM AIR. RA PICC WITH DRIED BLOOD AT INSERTION SITE, FLUSHES EASILY. SEVERE ECCHYMOSIS GENERALIZED THROUGHOUT HER BODY IN VARIOUS STAGES OF HEALING. DENIED PAIN. C/O FATIGUE, TRIED TO NAP THROUGHOUT THE DAY BUT HAD FREQUENT INTERRUPTIONS FOR THERAPY, MEALS, TOILETING, FAMILY VISITS. TWO PERSON MAX ASSIST TO W/C, HAS TROUBLE FOLLOWING DIRECTIONS AT TIMES, IS EXTREMELY WEAK. PUREWICK IN PLACE FOR URINATION, CHANGED TODAY.
--- NOTE | 2022-03-14 04:03 | NUR ---
SHIFT SUMMARY PATIENT HAD NO ACUTE CHANGES. AXOX 2 AND TWO MAX ASSIST TO BSC. TAKES MEDICATION WHOLE IN APPLESAUCE. PICC LINE ARAMIS INTACT. CBG 97. VSS/AFEBRILE. DENIES PAIN, SOB, AND N/V. PUREWICK IN PLACE FOR URINATION. PATIENT ABLE TO SLEEP MOST OF THE SHIFT. CALL LIGHT IN REACH. BED IN LOWEST POSITION. WILL CONTINUE TO MONITOR UNTIL DAY SHIFT NURSE ASSUMES CARE.
--- NOTE | 2022-03-14 16:45 | NUR ---
SHIFT SUMMARY PATIENT IS ALERT AND ORIENTED. PATIENT HAS HAD NO ACUTE EVENTS THIS SHIFT. PATIENT IS A 2 PERSON MAX ASSIST TO BSC, HAS NOT CALLED FOR BM THIS SHIFT SO FAR. PATIENT HAS A PERWICK IN PLACE AND IS WORKING NICELY. PICC LINE REMAINS INTACT IN RVA. PATIENT HAS NOT NEEDED COVERAGE FOR INSULIN THIS SHIFT. VITAL SIGNS REVIEWED. PATIENT TAKES MEDICATION WHOLE IN APPLESAUCE WELL. BED IN LOCKED AND LOWERED POSITION. CALL LIGHT IN PLACE. WILL MONITOR UNTIL SHIFT CHANGE.
--- NOTE | 2022-03-15 05:26 | NUR ---
SHIFT SUMMARY NO ACUTE CHANGES OVERNIHGT. AOX3. 2 MAX ASSIST. NO BM TONIGHT. PERWICK IN PLACED, WORKING WITHOUT ISSUES OVERNIGHT. PICC LINE ON ARAMIS, INTACT. CBG WNL. VSS. MED WHOLE WITH APPLESAUCE. PT REPORTS NECK PAIN AND THROAT PAIN. MEDICATED WITH 1 TAB OXYCODONE. DTR IN LAW AT BEDSIDE. PT COOPERATIVE WITH CARE. VSS. CALL LIGHT WITHIN REACH. BED IN LOW POSITION. WILL PROVIDE REPORT TO ONCOMING NURSE.
--- NOTE | 2022-03-15 16:49 | NUR ---
SHIFT SUMMARY PATIENT IS ALERT AND ORIENTED TO SELF AND FAMILY. PATIENT HAS HAD NO ACUTE EVENTS THIS SHIFT. VITAL SIGNS REVIEWED. PATIENT HAS BEEN RESTING OFF AND ON THIS SHIFT. FAMILY HAS VISITED WITH FAMILY MOST OF SHIFT. PATIENT HAS HAD NO COMPLAINTS OF PAIN, NAUSEA, VOMITTING OR SOB THIS SHIFT. PATIENT IS AWAITING PLACEMENT. BED IN LOCKED AND LOWEST POSITION. CALL LIGHT IN PLACE. WILL MONITOR UNTIL SHIFT CHANGE.
--- NOTE | 2022-03-16 03:04 | NUR ---
SHIFT SUMMARY NO ACUTE CHANGES OVERNIGHT. PT APPEAR TO HAVE SOME CONFUSION AT THE BEGINNING OF THE SHIFT. SHE REFUSED TO TAKE HER NIGHT MEDICATIONS. RETURNED AFTER AN HOUR AND REORIENT PT, PT WAS THEN COOPERATIVE WITH CARE AND AGREED TO TAKE MEDS. PT ON 2 MAX ASSIST. P.WICK SUCTION IN PLACE. REPOSITIONED Q2. PICC LINE ON ARAMIS, PATENT AND KVO. CALL LIGHT WITHIN REACH. WILL CONTINUE TO MONITOR AND WILL PROVIDE REPORT TO ONCOMING NURSE.
[2022-03-16 05:35] LABS: Hematocrit 29.4 % (33.0-51.0); Hemoglobin 9.3 g/dL (11.5-16.0); Mean Corpuscular HGB 29.6 pg (26.0-34.0); Mean Corpuscular HGB Conc 31.6 g/dL (31.5-36.5); Mean Corpuscular Volume 94 fL (80-100); Mean Platelet Volume 11.3 fL (9.1-12.4); NRBC ABSOLUTE 0.03 K/mm3 (0.00-0.02); NRBC Auto 0.1 /100 WBC (0.0-0.2); Platelet Count 62 K/mm3 (150-400); RDW Coefficient Variation 14.3 % (11.7-14.2); RDW Standard Deviation 47.9 fL (35.1-46.3); Red Blood Cell Count 3.14 M/mm3 (3.80-5.20); White Blood Cell Count 32.93 K/mm3 (4.00-11.30)
[2022-03-16 06:01] LABS: Albumin, Blood 2.3 g/dL (3.4-5.0); Albumin/Globulin Ratio 0.4 (0.8-1.8); Bilirubin, Total 0.5 mg/dL (0.1-1.0); Bun/Creatinine Ratio 27.3 (12.0-20.0); Calcium, Blood 9.4 mg/dL (8.5-10.1); Creatinine, Blood 1.83 mg/dL (0.40-1.00); Globulin, Blood 5.6 g/dL (2.2-4.0); Potassium, Blood 4.8 mmol/L (3.5-5.5); Total Protein, Blood 7.9 g/dL (6.4-8.2)
[2022-03-16 06:39] LABS: BAND PERCENT MAN 1 % (0-8); BASOPHILS PERCENT MAN 0 % (0-2); BLASTS PERCENT MAN 60 % (0-0); EOSINOPHILS ABSOLUTE MAN 0.65 K/mm3 (0.00-0.68); EOSINOPHILS PERCENT MAN 2 % (0-6); LYMPHOCYTES PERCENT MAN 24 % (21-46); MONOCYTES ABSOLUTE MAN 3.29 K/mm3 (0.16-1.47); MONOCYTES PERCENT MAN 10 % (4-13); NEUTROPHILS ABSOLUTE MAN 1.31 K/mm3 (1.96-9.15); SEG NEUTROPHILS PERCENT MAN 3 % (41-73); TOTAL CELLS COUNTED 100
--- NOTE | 2022-03-16 08:00 | NUR ---
pt laying in bed awake, flat affect, barely responds, denies pain, lungs are clear t/o, on r/a, reps even and unlabored, no cough noted, hrr, no edema noted, ppp faint, cap refill <3sec, vs stable, afebrile, iv is picc line to nile site is clear and patent, infusing ns at tko, btx4, abd flats soft nontedner, incont of urine, purwick in place and attends, skin c/w/d, maew, weak and very stiff, she is a two person max assist, took po meds crushed in applesauce, needs assist to eat, call light in reach.
--- NOTE | 2022-03-16 18:10 | NUR ---
pt sat up in her wheelchair for a couple hrs, had a large bm today, jelaniwick replaced when she was assisted back to bed, no acute changes this shift, call light in reach.
[2022-03-17 05:08] LABS: Hematocrit 27.3 % (33.0-51.0); Hemoglobin 8.7 g/dL (11.5-16.0); Mean Corpuscular HGB 29.5 pg (26.0-34.0); Mean Corpuscular HGB Conc 31.9 g/dL (31.5-36.5); Mean Corpuscular Volume 93 fL (80-100); Mean Platelet Volume 10.8 fL (9.1-12.4); NRBC ABSOLUTE 0.04 K/mm3 (0.00-0.02); NRBC Auto 0.1 /100 WBC (0.0-0.2); Platelet Count 51 K/mm3 (150-400); RDW Coefficient Variation 14.4 % (11.7-14.2); RDW Standard Deviation 47.9 fL (35.1-46.3); Red Blood Cell Count 2.95 M/mm3 (3.80-5.20); White Blood Cell Count 26.86 K/mm3 (4.00-11.30)
[2022-03-17 05:26] LABS: Albumin, Blood 2.1 g/dL (3.4-5.0); Albumin/Globulin Ratio 0.4 (0.8-1.8); Bilirubin, Total 0.4 mg/dL (0.1-1.0); Bun/Creatinine Ratio 31.2 (12.0-20.0); Creatinine, Blood 1.76 mg/dL (0.40-1.00); Globulin, Blood 5.6 g/dL (2.2-4.0); Magnesium, Blood 1.9 mg/dL (1.6-2.4); Potassium, Blood 4.7 mmol/L (3.5-5.5); Total Protein, Blood 7.7 g/dL (6.4-8.2)
--- NOTE | 2022-03-17 05:47 | NUR ---
SHIFT SUMMARY 71 YR F ADMITTED ON 03/01/22 FOR SEPSIS PNEUMONIA. FULL CODE. NO ACUTE CHANGES THIS SHIFT. PT WAS A BIT GRUMPY AT THE BEGINNING OF THE SHIFT BUT I HAVE FOUND THAT IF YOU TALK TO HER AND JOKE A LITTLE SHE WILL SMILE AND LAUGH AND CRACK A JOKE OR TWO HERSELF. SHE HAD NO C/O PAIN BUT DID STATE THAT SHE DOES NOT LIKE THE PUREWICK. IT WAS EXPLAINED TO HER THAT IT WILL HELP TO KEEP HER DRY AND PREVENT SKIN BREAKDOWN AND SHE AGREED TO CONTINUE ON WITH IT.
[2022-03-17 06:16] LABS: BASOPHILS PERCENT MAN 0 % (0-2); BLASTS PERCENT MAN 66 % (0-0); EOSINOPHILS ABSOLUTE MAN 0.26 K/mm3 (0.00-0.68); EOSINOPHILS PERCENT MAN 1 % (0-6); LYMPHOCYTES ABSOLUTE MAN 7.78 K/mm3 (0.84-5.20); LYMPHOCYTES PERCENT MAN 29 % (21-46); MONOCYTES ABSOLUTE MAN 0.26 K/mm3 (0.16-1.47); MONOCYTES PERCENT MAN 1 % (4-13); SEG NEUTROPHILS PERCENT MAN 3 % (41-73); TOTAL CELLS COUNTED 100
--- NOTE | 2022-03-17 12:59 | NUR ---
DISCHARGE SUMMARY PT RECEIVED DISCHARGE, FOLLOWUP, AND MEDICATION INSTRUCTIONS. PT VOICED COMPLETE UNDERSTANDING AND HAS NO QUESTIONS AT THIS TIME. PT STATES SHE IS UNABLE TO SIGN, WILL WAIT FOR DAUGHTER TO RETURN TO SIGN. PICC LINE REMOVED, DRESSING IN PLACE. SCHEDULED PICKUP FROM [phone]. WILL MONITOR UNTIL THEN.
== END 2022-03-17 15:10 | disposition hospice, home (50) | DRG 834 ==
LOC: ER 11:51 → MEDS 14:30
PROVIDERS: Emergency Medicine; Family Medicine; Hospitalist; Internal Medicine; Internal Medicine Hematology & Oncology; Nurse Practitioner Acute Care; ADMIT Internal Medicine
PROC: 30233N1 Transfusion of Nonautologous Red Blood Cells into Peripheral Vein, Percutaneous Approach (ICD-10-PCS; principal; 2022-03-01)
PROC: 30233R1 Transfusion of Nonautologous Platelets into Peripheral Vein, Percutaneous Approach (ICD-10-PCS; 2022-03-01)
PROC: 07DR3ZX Extraction of Iliac Bone Marrow, Percutaneous Approach, Diagnostic (ICD-10-PCS; 2022-03-05)
PROC: 6A550Z2 Pheresis of Platelets, Single (ICD-10-PCS; 2022-03-05)
PROC: 05HY33Z Insertion of Infusion Device into Upper Vein, Percutaneous Approach (ICD-10-PCS; 2022-03-10)
DX: C92.02 Acute myeloblastic leukemia, in relapse (principal); G93.41 Metabolic encephalopathy; D61.818 Other pancytopenia; N39.0 Urinary tract infection, site not specified; N17.9 Acute kidney failure, unspecified; Z94.81 Bone marrow transplant status; Z51.5 Encounter for palliative care; Z20.822 Contact with and (suspected) exposure to COVID-19; R62.7 Adult failure to thrive; K21.9 Gastro-esophageal reflux disease without esophagitis; E78.5 Hyperlipidemia, unspecified; D63.0 Anemia in neoplastic disease; F41.8 Other specified anxiety disorders; I12.9 Hypertensive chronic kidney disease with stage 1 through stage 4 chronic kidney disease, or unspecified chronic kidney disease; N18.30 Chronic kidney disease, stage 3 unspecified; E11.22 Type 2 diabetes mellitus with diabetic chronic kidney disease; G30.9 Alzheimer's disease, unspecified; F02.80 Dementia in other diseases classified elsewhere, unspecified severity, without behavioral disturbance, psychotic disturbance, mood disturbance, and anxiety; Z68.26 Body mass index [BMI] 26.0-26.9, adult; Z88.8 Allergy status to other drugs, medicaments and biological substances; Z79.899 Other long term (current) drug therapy
CPT/HCPCS: 0241U; 36415; 36569; 51701; 71045; 80053; 80069; 81001; 82272; 82947; 83605; 83735; 84100; 84484; 84550; 85014; 85018; 85025; 85097; 85610; 85730; 86850; 86900; 86901; 86923; 87040; 87086; 87493; 93005; 93010; 94640; 94664; 94760; 94762; 96361; 96374-59; 97110; 97162; 97166; 97530; 97535; 99285-25; A9270; C1751; J0696; J1450; J1956; J2185; J3475; J7030; J7040; P9016; P9035